=== PATIENT | female | born 1960 | race Caucasian/White ===

== ENCOUNTER 2020-07-22 06:10 | Inpatient (IN) | payer MEDICARE, SELFPAY ==
[2020-07-22] VITALS (29 sets, daily range): BP systolic 93–131; BP diastolic 50–73; PULSE 100–115; RESP 10–27; TEMP 36.5–37.2; O2SAT 93–100
--- NOTE | 2020-07-22 06:46 | CT_ITS ---
WS: [id number] CT ABDOMEN AND PELVIS WITH CONTRAST HISTORY: Diffuse abdominal pain. TECHNIQUE: Imaging performed of the abdomen and pelvis with IV contrast. Single phase imaging of the abdomen. Coronal and sagittal reformats are submitted. All CT scans at [facility] use at least one of these dose optimization techniques: automated exposure control; mA and/or kV adjustment per patient size (includes targeted exams where dose is matched to clinical indication); or iterativ e reconstruction. IV CONTRAST: Omnipaque 300; 95 mL IV. Oral contrast: No DLP: 323.44 mGy.cm COMPARISON: 05/21/2017 Lower thorax: Coarsened interstitial markings and increased reticulation at the lung bases. Probably on the basis of chronic lung disease. Mild cardiac enlargement. No hiatal hernia. Liver/biliary system: Normal size liver. Mild diffuse hepatic steatosis. There is free air adjacent t o the liver and free air near the aj hepatis. Gallbladder: Prior cholecystectomy. There is a small amount of air in the gallbladder fossa. Pancreas: Normal common bile duct at pancreatic head. Pancreas is atrophied. Spleen: Normal. Adrenal glands: Normal. Right kidney: Normal. Left kidney: A few cortical hypodensities which are too small to characterize. No obstruction. Aorta: Moderate atherosclerosis of aorta. No aneurysm. Moderate to large amount of free air throughout the abdomen. Largest amount over the liver and in the midline. Lymphadenopathy: None. Free fluid: Small amount of free fluid in the pelvis. GI tract: Mild fluid distention of the stomach. Mucosal thickening and inflammation is significant in volving the antrum and duodenum. There is free air adjacent to the duodenum. No obstruction. Prior ap pendectomy. Abdominal wall: Unremarkable abdominal wall. No hernia. Pelvis: Fluid in the pelvis. Urinary bladder is nondistended. Bones: Extensive prior lumbar fusion surgery from L3 through S2. CT/CT abdomen pelvis w con* [id number] IMPRESSION: 1. Moderate to large amount of intraperitoneal free air. 2. Marked mucosal thickening and edema with fluid and adjacent free air near t he antrum and duodenal C-loop. Free air source may be a perforated ulcer. 3. Small amount of free fluid in the pelvis. 4. Prior cholecystectomy. 5. Hepatic steatosis. Notified Dale Marinelli DO at 07/22/2020 8:11 AM.
--- NOTE | 2020-07-22 06:47 | ECG_ITS ---
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 Measurements Intervals [place] Rate: 99 P: 65 SC: 100 QRS: 61 QRSD: 85 T: 64 QT: 317 QTc: 408 Interpretive Statements SINUS RHYTHM WITH SHORT SC INTERVAL NONSPECIFIC ST & T-WAVE ABNORMALITY No previous ECG available for comparison Electronically Signed On 07-22-2020 9:41:40 SUPERVISOR TUBING by Darien Hunter M.D. [email or web address] medina [email or web address]/[id number] f
--- NOTE | 2020-07-22 06:47 | XR_ITS ---
WS: [id number] XR chest 1V portable [id number] REASON FOR EXAM: dyspnea/cough FINDINGS: Aorta and heart are within normal limits. Calcified granulomatous changes in both hemithoraces. There are reticular interstitial changes in both lung bases with some small linear densities. CT of t he abdomen and pelvis 07/22/2020, demonstrate no acute appearing infiltrate in the lung bases. There is a mild scoliosis convex right at the thoracolumbar junction. XR/XR chest 1V portable [id number] IMPRESSION: Apparent chronic lung findings without definite acute abnormality noted.
--- NOTE | 2020-07-22 06:49 | ED_ITS ---
HPI - Abdominal Pain General: Chief Complaint: Abdominal Pain Stated Complaint: abd pain Time Seen by Provider: 07/22/20 06:14 History of Present Illness: HPI narrative: 60-year-old female comes in complaining of abdominal pain for the last 5 days getting progressively worse. She had a lot of nausea. She has had a lot of dry heaving but has not actually thrown anything up now has increasing abdominal pain it is even painful for her to take a deep breath. Her bowel movements have been irregular she cannot tell me when her last bowel movement was. She denies any hematochezia melena hematemesis or coffee-ground emesis no dysuria urgency or frequency. She has previously had a lopez, cholecystectomy and an appendectomy. MD elicited complaint: abdominal pain Onset (ago): day(s) (5) Pain Consistency: constant Location: Epigastric Severity: severe Quality: cramping and aching Migration to: LLQ Exacerbating factors: eating, vomiting and movement Relieving factors: medication (Pain medication given by EMS in the field) and rest Associated Symptoms: Reports anorexia, bloating, change in bowel habits, GI cramping, diarrhea, dyspepsia, heartburn, nausea, poor appetite and vomiting; Denies coffee ground emesis, dysuria, excessive flatus, fever(s), hematochezia, hematuria, hematemesis, fecal incontinence, loose stools, melena and syncope Review of Systems Const: Denies: fever(s) ENMT: Denies: throat pain, ear or mastoid pain, nasal discharge or nasal congestion Card: Denies: syncope Resp: Denies: dyspnea, productive cough or non-productive cough GI: Reports: nausea, vomiting, heartburn, diarrhea, bloating, GI cramping and change in bowel habits; Denies: hematemesis, coffee ground emesis, excessive flatus, fecal incontinence, hematochezia or melena : Denies: dysuria or hematuria Skin/Breast: Denies: rash or pruritus PFSH ED PFSH: Medical History (Updated 07/22/20 @ 09:20 by Ramakrishna Solo MD) Chronic back pain COPD (chronic obstructive pulmonary disease) GERD (gastroesophageal reflux disease) Peptic ulcer disease Tobacco dependency Surgical History (Updated 07/22/20 @ 09:20 by Ramakrishna Solo MD) History of back surgery History of surgery on extremity History of tonsillectomy Hx of appendectomy Hx of cholecystectomy Status post Lopez fundoplication Family History (Updated 07/22/20 @ 09:20 by Ramakrishna Solo MD) Other Cancer Social History (Updated 07/22/20 @ 09:21 by Ramakrishna Solo MD) Smoking and tobacco status: current every day smoker Alcohol intake: current Alcohol intake frequency: holidays/special occasions only Substance/Drug Use: never Physical Exam Const: COMMON NORMALS: no acute distress GENERAL APPEARANCE: cooperative and comfortable ORIENTATION/CONSCIOUSNESS: Yes awake, Yes oriented to person, Yes oriented to place and Yes oriented to time HENMT: COMMON NORMALS: normocephalic, atraumatic and hearing grossly normal bilaterally HEAD & SCALP: normocephalic and atraumatic Eye: COMMON NORMALS: Equal, round and reactive pupils present, EOMs intact bilaterally, conjunctivae normal and no scleral icterus CONJUNCTIVA: Yes conjunctivae normal PUPIL: Yes Equal, round and reactive pupils present Neck/C-Spine: COMMON NORMALS: full ROM, no lymphadenopathy, supple and no JVD Lymph: LYMPHATIC: no lymphadenopathy noted and no lymphedema noted Resp: COMMON NORMALS: normal respiratory effort, No retractions, No use of accessory muscles and clear to auscultation bilaterally AUSCULTATION: clear to auscultation bilaterally Cardio: COMMON NORMALS: no JVD, regular rate, regular rhythm and No murmurs present (Cardio) RATE: regular rate RHYTHM: regular rhythm GI: COMMON NORMALS: No hepatosplenomegaly present AUSCULTATION: Yes normoactive bowel sounds PALPATION: Yes Tenderness to palpation present (GI) (Epigastric), Yes Guarding due to palpation present (GI) and Yes No hepatosplenomegaly present Extremity: COMMON NORMALS: normal to inspection, capillary refill normal, no clubbing, cyanosis or edema, no calf tenderness and no pedal edema Neuro: SENSORIUM/ORIENTATION: Yes oriented to person, Yes oriented to place and Yes oriented to time Skin: COMMON NORMALS: no rashes or lesions noted GENERAL SKIN EXAM: no rashes or lesions noted Course Vital Signs: Vital signs: Vital Signs Temperature 97.9 F 07/22/20 06:12 Pulse Rate 102 H 07/22/20 08:37 Respiratory Rate 17 07/22/20 08:37 Blood Pressure 114/67 07/22/20 08:37 Pulse Oximetry 96 07/22/20 08:37 MDM - Abdominal Pain MDM Narrative: Medical decision making narrative: Patient has perforated duodenal ulcer hypokalemia. She has been given Zosyn Protonix and her potassium is being replaced. Of contacted Dr. Donaldson and Dr. Solo they will admit orders are written Lab Data: Labs: Lab Results 07/22/20 07/22/20 07/22/20 Range/Units 06:20 06:20 06:20 WBC 14.6 H (4.0-10.0) 10^3/ uL RBC 3.61 L (4.1-5.3) 10^6/u L Hgb 11.5 (11.5-15.3) g/dL Hct 34.8 L (37.0-47.0) % MCV 96.4 (81-99) fL MCH 31.9 (28.0-34.0) pg MCHC 33.0 (30.0-36.0) g/dL RDW 17.0 H (12.1-15.1) % Plt Count 353 (130-400) 10^3/c mm MPV 11.1 H (7.4-10.4) fL Neut % (Auto) 81.7 % Lymph % (Auto) 12.4 % Daggett % (Auto) 5.1 % Eos % (Auto) 0.2 % Baso % (Auto) 0.3 % Neut # (Auto) 11.93 H (1.8-7.7) 10^3/u L Lymph # (Auto) 1.8 (0.8-4.8) 10^3/u L Daggett # (Auto) 0.8 (0.2-0.9) 10^3/u L Eos # (Auto) 0.0 (0.0-0.8) 10^3/u L Baso # (Auto) 0.1 (0.0-0.1) 10^3/u L Nucleated RBC % (a uto) 0 % Nucleated RBCs # 0.0 /100WBC D-Dimer (0-0.59) ug/mIFE U Sodium 137 (136-145) mmol/L Potassium 2.7 L* (3.5-5.1) mmol/L Chloride 94 L (98-107) mmol/L Carbon Dioxide 30 H (22-29) mmol/L Anion Gap 15.7 (5-19) BUN 7 L (8-23) mg/dL Creatinine 0.6 (0.5-0.9) mg/dL GFR Calculation 101.6 (90-130) mL/min Glucose 138 H (65-115) mg/dL Calculated Osmolal ity 284 L (285-295) mOsm/k g Lactic Acid 1.9 (0.5-2.2) mmol/L Calcium 8.3 L (8.5-10.5) mg/dL Total Bilirubin 0.3 (0.15-1.2) mg/dL AST 43 H (0-32) U/L ALT 29 (0-33) U/L Alkaline Phosphata se 123 H (35-105) IU/L Total Protein 6.0 L (6.6-8.7) g/dL Albumin 3.3 L (3.5-5.2) g/dL Globulin 2.7 (1.3-4.6) g/dL Lipase 12 L (13-60) U/L Urine Color (Yellow) Urine Appearance (CLEAR) Urine pH (5-7) Ur Specific Gravit y (1.005-1.030) Urine Protein (Negative) Urine Glucose (UA) (Normal) Urine Ketones (Negative) Urine Blood (Negative) Urine Nitrate (Negative) Urine Bilirubin (Negative) Prot Sulfosalicyli c Acd (Negative) Urine Urobilinogen (Negative) mg/dL Ur Leukocyte Essie ase (Negative) SARS-CoV-2 Ag (Rap id) (Negative) 07/22/20 07/22/20 07/22/20 Range/Units 06:20 07:13 07:46 WBC (4.0-10.0) 10^3/ uL RBC (4.1-5.3) 10^6/u L Hgb (11.5-15.3) g/dL Hct (37.0-47.0) % MCV (81-99) fL MCH (28.0-34.0) pg MCHC (30.0-36.0) g/dL RDW (12.1-15.1) % Plt Count (130-400) 10^3/c mm MPV (7.4-10.4) fL Neut % (Auto) % Lymph % (Auto) % Daggett % (Auto) % Eos % (Auto) % Baso % (Auto) % Neut # (Auto) (1.8-7.7) 10^3/u L Lymph # (Auto) (0.8-4.8) 10^3/u L Daggett # (Auto) (0.2-0.9) 10^3/u L Eos # (Auto) (0.0-0.8) 10^3/u L Baso # (Auto) (0.0-0.1) 10^3/u L Nucleated RBC % (a uto) % Nucleated RBCs # /100WBC D-Dimer 1.06 H (0-0.59) ug/mIFE U Sodium (136-145) mmol/L Potassium (3.5-5.1) mmol/L Chloride (98-107) mmol/L Carbon Dioxide (22-29) mmol/L Anion Gap (5-19) BUN (8-23) mg/dL Creatinine (0.5-0.9) mg/dL GFR Calculation (90-130) mL/min Glucose (65-115) mg/dL Calculated Osmolal ity (285-295) mOsm/k g Lactic Acid (0.5-2.2) mmol/L Calcium (8.5-10.5) mg/dL Total Bilirubin (0.15-1.2) mg/dL AST (0-32) U/L ALT (0-33) U/L Alkaline Phosphata se (35-105) IU/L Total Protein (6.6-8.7) g/dL Albumin (3.5-5.2) g/dL Globulin (1.3-4.6) g/dL Lipase (13-60) U/L Urine Color Yellow (Yellow) Urine Appearance Clear (CLEAR) Urine pH 8.0 H (5-7) Ur Specific Gravit y 1.010 (1.005-1.030) Urine Protein Neg (Negative) Urine Glucose (UA) Norm (Normal) Urine Ketones 2+ H (Negative) Urine Blood Neg (Negative) Urine Nitrate Negative (Negative) Urine Bilirubin 1+ H (Negative) Prot Sulfosalicyli c Acd Negative (Negative) Urine Urobilinogen Norm (Negative) mg/dL Ur Leukocyte Essie ase Negative (Negative) SARS-CoV-2 Ag (Rap id) Negative (Negative) Discharge Plan Discharge Patient Disposition: Admitted As Inpatient Clinical Impression: Perforated duodenal ulcer, COPD (chronic obstructive pulmonary disease), Hypokalemia Condition: Stable Coding Level of Care Code ED Claims Consultant for Chg Fwd Exam Comprehensive
[2020-07-22 06:53] LABS: Basophils # 0.1 10^3/uL (0.0-0.1); Basophils % 0.3 %; Eosinophils % 0.2 %; Hematocrit 34.8 % (37.0-47.0); Hemoglobin 11.5 g/dL (11.5-15.3); Lymphocytes # 1.8 10^3/uL (0.8-4.8); Lymphocytes % 12.4 %; Mean Corpuscular Hemoglobin 31.9 pg (28.0-34.0); Mean Corpuscular Volume 96.4 fL (81-99); Mean Platelet Volume 11.1 fL (7.4-10.4); Monocytes # 0.8 10^3/uL (0.2-0.9); Monocytes % 5.1 %; Neutrophils # 11.93 10^3/uL (1.8-7.7); Neutrophils % 81.7 %; Nucleated Red Blood Cells % 0 %; Platelet Count 353 10^3/cmm (130-400); Red Blood Count 3.61 10^6/uL (4.1-5.3); White Blood Count 14.6 10^3/uL (4.0-10.0)
[2020-07-22 07:09] LABS: Lactic Sepsis W/Reflex 1.9 mmol/L (0.5-2.2)
[2020-07-22] MEDS: morphine 4 mg/mL SDV 1 mL IVP ×3 (07:09→19:54)
[2020-07-22] MEDS: ondansetron 2 mg/ML SDV 2 mL 4 MG IVP (07:09)
[2020-07-22 07:10] LABS: Alanine Aminotransferase 29 U/L (0-33); Albumin Level 3.3 g/dL (3.5-5.2); Alkaline Phosphatase 123 IU/L (35-105); Aspartate Amino Transferase 43 U/L (0-32); Blood Urea Nitrogen 7 mg/dL (8-23); Calcium 8.3 mg/dL (8.5-10.5); Carbon Dioxide 30 mmol/L (22-29); Chloride 94 mmol/L (98-107); Globulin 2.7 g/dL (1.3-4.6); Glomerular Filtration Rate 101.6 mL/min (90-130); Glucose 138 mg/dL (65-115); Lipase 12 U/L (13-60); Osmolality Calculated 284 mOsm/kg (285-295); Sodium 137 mmol/L (136-145); Total Bilirubin 0.3 mg/dL (0.15-1.2)
[2020-07-22 07:25] LABS: Anion Gap 15.7 (5-19); Potassium 2.7 mmol/L (3.5-5.1)
[2020-07-22 07:27] LABS: D Dimer 1.06 ug/mIFEU (0-0.59)
[2020-07-22 07:53] LABS: SARS Covid-2 Antigen Negative (Negative)
[2020-07-22] MEDS: iohexol 300 mg/mL 100 mL Btl IV (07:56)
[2020-07-22 07:57] LABS: Add Urine Microscopic? NO
[2020-07-22 08:05] LABS: Bilirubin Urine 1+ (Negative); Blood Urine Neg (Negative); Glucose Urine UA Norm (Normal); Ketones Urine 2+ (Negative); Leukocyte Esterase Urine Negative (Negative); Nitrate Urine Negative (Negative); Protein Urine Neg (Negative); Sulfosalicylic Acid Urine Negative (Negative); Urine Appearance Clear (CLEAR); Urine Color Yellow (Yellow); Urobilinogen Urine Norm (Negative)
[2020-07-22] MEDS: piperacillin-tazobactam 3.375 GM in sodium chloride 0.9% (plus) 50 ML IV ×3 (08:30→22:52)
[2020-07-22] MEDS: lidocaine 1% 5 ML in potassium chloride premix 100 ML 25 ML IV (08:31)
[2020-07-22] MEDS: pantoprazole 40 mg SDV IVP ×2 (08:52→22:52)
[2020-07-22] MEDS: sodium chloride 0.9% 1,000 ML 999 ML IV (08:52)
[2020-07-22] MEDS: HYDROmorphone 1 mg/mL INJ 1 mL 0.5 MG IVP (08:52)
--- NOTE | 2020-07-22 09:00 | P.CONIM_ITS ---
Providers/Reason For Consult Consulting Physican/Specialty*: Camilo Garza MD Reason for Consult*: Perforated duodenal ulcer Requesting Physcian: Dr. Marinelli Primary Care Provider: PERLA Putnam History of Present Illness History of Present Illness Chief Complaint: I am hurting History of present illness:sErick Aguiar is a 60 year old female presents to the emergency department with worsening abdominal pain mostly in the upper compartment, patient has been complaining of abdominal pain for the past 4 to 5 days and she is not able to vomit she had history of Arnoldo fundoplication back in 2003 that was done laparoscopic and patient reports to me that she had a previous ulcer that was repaired at the same session. Patient continues to smoke and she had history of COPD. She was tested for Covid rapid test and that was negative in the ER. On further evaluation blood work showed leukocytosis and hypokalemia and further work-up included a CT scan of the abdomen and pelvis showed: Liver/biliary system: Normal size liver. Mild diffuse hepatic steatosis. There i s free air adjacent to the liver and free air near the aj hepatis. Gallbladder: Prior cholecystectomy. There is a small amount of air in the gallbladder fossa. Pancreas: Normal common bile duct at pancreatic head. Pancreas is atrophied. Spleen: Normal. Adrenal glands: Normal. Right kidney: Normal. Left kidney: A few cortical hypodensities which are too small to characterize. No obstruction. Aorta: Moderate atherosclerosis of aorta. No aneurysm. Moderate to large amount of free air throughout the abdomen. Largest amount over the liver and in the midline. Lymphadenopathy: None. Free fluid: Small amount of free fluid in the pelvis. GI tract: Mild fluid distention of the stomach. Mucosal thickening and inflammation is significant involving the antrum and duodenum. There is free air adjacent to the duodenum. No obstruction. Prior appendectomy. Abdominal wall: Unremarkable abdominal wall. No hernia. Pelvis: Fluid in the pelvis. Urinary bladder is nondistended. Bones: Extensive prior lumbar fusion surgery from L3 through S2. CT/CT abdomen pelvis w con* [id number] IMPRESSION: 1. Moderate to large amount of intraperitoneal free air. 2. Marked mucosal thickening and edema with fluid and adjacent free air near the antrum and duodenal C-loop. Free air source may be a perforated ulcer. 3. Small amount of free fluid in the pelvis. 4. Prior cholecystectomy. 5. Hepatic steatosis. General surgery was consulted for for evaluation and management Patient denies Hematemsis Review of Systems General: Reports: 10 or more systems reviewed and unremarkable except in HPI and below Meds/Allergies Home Medications and Allergies Home Medications Medication Instructions Recorded Confirmed Last Taken Type acetaminophen [Tylenol] 325 mg PO QID PRN 07/22/20 07/22/20 Unknown History aspirin-sod bicarb-citric acid 324 mg PO DAILY 07/22/20 07/22/20 07/21/20 History [Soo-Gepp] carisoprodol 350 mg PO QID PRN 07/22/20 07/22/20 07/21/20 History hydrocodone-acetaminophen 1 tab PO Q4H PRN 07/22/20 07/22/20 07/18/20 History omeprazole [Prilosec] 40 mg PO DAILY 07/22/20 07/22/20 Unknown History Allergies Allergy/AdvReac Type Severity Reaction Status Date / Time No Known Allergies Allergy Verified 07/22/20 09:14 Current Medications Current Medications Generic Name Dose Route Start Last Admin Trade Name Freq PRN Reason Stop Dose Admin Lidocaine HCl 5 ml/ Potassium 105 mls @ 25 mls/hr 07/22/20 07:31 07/22/20 08:31 Chloride IV 07/22/20 11:42 25 mls/hr ONCE ONE Administration Sodium Chloride 1,000 mls @ 999 mls/hr 07/22/20 08:41 07/22/20 08:52 Sodium Chloride 0.9% IV 07/22/20 09:41 999 mls/hr .Q1H1M ONE Administration PFSH Acute PFSH: Medical History (Updated 07/22/20 @ 09:22 by Ramakrishna Solo MD) Chronic back pain COPD (chronic obstructive pulmonary disease) GERD (gastroesophageal reflux disease) Peptic ulcer disease Tobacco dependency Surgical History (Updated 07/22/20 @ 09:20 by Ramakrishna Solo MD) History of back surgery History of surgery on extremity History of tonsillectomy Hx of appendectomy Hx of cholecystectomy Status post Arnoldo fundoplication Family History (Updated 07/22/20 @ 09:20 by Ramakrishna Solo MD) Other Cancer Social History (Updated 07/22/20 @ 09:21 by Ramakrishna Solo MD) Smoking and tobacco status: current every day smoker Alcohol intake: current Alcohol intake frequency: holidays/special occasions only Substance/Drug Use: never Vitals/I&O/Wt Last Vital Signs Temp 97.9 F 07/22/20 06:12 Pulse 102 H 07/22/20 08:37 Resp 17 07/22/20 08:37 BP 114/67 07/22/20 08:37 Pulse Ox 96 07/22/20 08:37 07/21/20 07/22/20 07/22/20 22:59 06:59 14:59 Intake Total 50 / 50 Balance 50 / 50 Physical Exam Narrative: EXAM NARRATIVE: Patient is conscious alert oriented X3 Head and neck examination PERRLA no masses no cervical lymphadenopathy no jaundice Cardiac examination audible S1-S2 no murmurs no gallops no arrhythmias Chest is clear bilateral,abscence of Rhonchi or wheezes,no surgical emphysema Abdomen generalized peritonitis particularly in the upper part of the abdomen with guarding and rigidity. Extremities no cyanosis no clubbing no edema Data Micro: Micro: Microbiology 07/22/20 06:20 Blood Culture - Pr eliminary Blood SPECIMEN COLLEC DIANELYS A&P Assessment and plan (1) Perforated duodenal ulcer: After history taking physical examination and reviewing the chart and images with my patient the petition of the CT scan likely the patient has a pe rforated duodenal ulcer and will require diagnostic laparoscopy possible laparotomy and possible EGD. Indications, risks, benefits and alternatives were discussed with the patient and she did agree to proceed with surgery Informed consent per chart Status: Acute Consult Attestations Medical Necessity Statement: Inpatient hospitalization for medical and surgical care. Time Spent in Patient Care: (>than 50% of time spent in counselling and/or direct pt care on unit) . Coding Level of Care Code Acute Welfare Interviewer for g Fwd Diagnoses Perforated duodenal ulcer K26.5
--- NOTE | 2020-07-22 09:03 | PC.NURSE ---
pt hypoxic after analgesic administration (room air saturation 87%). Applied 2L per NC
--- NOTE | 2020-07-22 09:08 | PM.HP ---
Providers/Chief Complaint Primary Care Provider: PERLA Putnam Chief Complaint: abd pain History of Present Illness Judy Aguiar is a 60 year old female that presents to the emergency department complaining of nausea, dry heaves and abdominal pain. This is apparently been going on 4 days. No blood in stools or black or tarry stools. Last bowel movement yesterday. Last p.o. intake 11 PM last night. Abdominal pain has significantly worsened over the preceding days. Has prior history of ulcer, treated in 2003 with surgery as well as Niesen. Denies any anesthesia complications, bleeding disorders. No fever. No history of Covid, chronic cough, exposure to Covid. Has been using Soo-[place] the last 4 to 5 days secondary to pain. Denies any other anti-inflammatory use. Is not on any anticoagulants. Review of Systems General: Reports: 10 or more systems reviewed and unremarkable except in HPI and below Const: Denies: fever(s) or chills Eyes: Denies: change in vision ENMT: Denies: throat pain Card: Denies: chest pain Resp: Denies: dyspnea GI: Reports: abdominal pain and nausea : Denies: flank pain Musc: Denies: neck pain Skin/Breast: Denies: rash Neuro: Denies: headache(s) Psych: Denies: anxiety Endo: Denies: polyuria Nehemias/Lymph: Denies: easy bruising All/Imm: Denies: urticaria Medications/Allergies Home Medications Medication Instructions Recorded Confirmed Last Taken Type acetaminophen [Tylenol] 325 mg PO QID PRN 07/22/20 07/22/20 Unknown History aspirin-sod bicarb-citric acid 324 mg PO DAILY 07/22/20 07/22/20 07/21/20 History [Soo-[place]] carisoprodol 350 mg PO QID PRN 07/22/20 07/22/20 07/21/20 History hydrocodone-acetaminophen 1 tab PO Q4H PRN 07/22/20 07/22/20 07/18/20 History omeprazole [Prilosec] 40 mg PO DAILY 07/22/20 07/22/20 Unknown History Allergies Allergy/AdvReac Type Severity Reaction Status Date / Time No Known Allergies Allergy Verified 07/22/20 09:14 PFSH Acute PFSH: Medical History (Updated 07/22/20 @ 09:22 by Ramakrishna Solo MD) Chronic back pain COPD (chronic obstructive pulmonary disease) GERD (gastroesophageal reflux disease) Peptic ulcer disease Tobacco dependency Surgical History (Updated 07/22/20 @ 09:20 by Ramakrishna Solo MD) History of back surgery History of surgery on extremity History of tonsillectomy Hx of appendectomy Hx of cholecystectomy Status post Arnoldo fundoplication Family History (Updated 07/22/20 @ 09:20 by Ramakrishna Solo MD) Other Cancer Social History (Updated 07/22/20 @ 09:21 by Ramakrishna Solo MD) Smoking and tobacco status: current every day smoker Alcohol intake: current Alcohol intake frequency: holidays/special occasions only Substance/Drug Use: never Supplemental PFSH Information: Family history significant for pancreatic cancer. Vitals/I&O/Wt Last Vital Signs Temp 97.9 F 07/22/20 06:12 Pulse 102 H 07/22/20 08:37 Resp 17 07/22/20 08:37 BP 114/67 07/22/20 08:37 Pulse Ox 96 07/22/20 08:37 07/21/20 07/22/20 07/22/20 22:59 06:59 14:59 Intake Total 50 / 50 Balance 50 / 50 Physical Exam Narrative: EXAM NARRATIVE: General exam is a white female in apparent abdominal pain HEENT: Pupils equally round. Oropharynx clear. Neck is supple no lymphadenopathy or thyromegaly Cardiovascular tachycardic, no murmur Lungs clear no wheezing or crackles. Diminished breath sounds are noted bilaterally Abdomen is tender to any palpation. Bowel sounds are hypoactive. No obvious organomegaly was deferred Extremities no cyanosis clubbing or edema, cap refill brisk Skin no rash Neuro no focal deficits Data : 07/22/20 06:20 07/22/20 06:20 Micro: Microbiology 07/22/20 06:20 Blood Culture - Preliminary Blood SPECIMEN COLLECTED Other data: EKG demonstrates sinus tachycardia, normal axis, nonspecific ST-T wave abnormalities Chest x-ray reviewed by me demonstrates some COPD changes but no infiltrate CT abdomen and pelvis demonstrates free intraperitoneal air, thickening of duodenum and likely perforated ulcer, small amount of free fluid, prior cholecystectomy, fatty liver Dimer 1.06 AST 43 ALT 29 alk phos 123 albumin 3.3 lipase 12 Rapid Covid negative Urinalysis negative for leukocyte esterase A&P Assessment and plan (1) Perforated duodenal ulcer: Acute peritonitis present on exam ICU admission Currently does not appear to be bleeding significantly but will repeat hemoglobin in 4 hours Zosyn IV Blood cultures Protonix 40 mg IV every 12 hours Surgery consultation Pain control Status: Acute (2) Free intraperitoneal air: Secondary to above Status: Acute (3) COPD (chronic obstructive pulmonary disease): Albuterol and Atrovent per inhalation as needed Status: Acute (4) Chronic back pain: Pain control for ulcer should be sufficient Status: Inactive Additional A&P Information Full code SCDs for DVT prophylaxis. Anticoagulation contraindicated secondary to perforated ulcer, duodenum Attestations Medical Necessity Statement*: Will need greater than 2 midnight stay for evaluation and treatment of perforated duodenal ulcer Critical Care Time: 46 minutes spent in critical care time with the patient, with acute peritonitis, perforated duodenal ulcer, tachycardia, with high risk of and/or decompensation. Coding Level of Care Code Acute Commercial Designer for [facility] Fwd Diagnoses Perforated duodenal ulcer K26.5 Free intraperitoneal air K66.8 COPD (chronic obstructive pulmonary disease) J44.9 Chronic back pain M54.9; G89.29
[2020-07-22 09:27] LABS: Magnesium 1.9 mg/dL (1.7-2.3)
--- NOTE | 2020-07-22 10:02 | P.ANESASSM_ITS ---
Pre-Anesthetic Assessment Pre-Anesthetic Assessment: Height/Weight: Temp Pulse Resp BP Pulse Ox 97.9 F 102 H 17 114/67 96 07/22/20 06:12 07/22/20 08:37 07/22/20 08:37 07/22/20 08:37 07/22/20 08:37 Preop Diagnosis: Perforated duodenal ulcer Proposed Procedure: Operation Date: 07/22/20 10:30 Proposed Procedures p Laparoscopy(Not Applicable) - Camilo Garza MD Familial anesthetic complications: None Was Beta Zora taken within 24 hours: N/A Last intake: NPO > 8 hrs, but currently nauseated Social: Social History: Tobacco Exam: Pre-Anes Outpt Exam: alert, oriented x 3, clear to auscultation bilaterally and regular rate & rhythm Airway: Cervical ROM: WNL MP: 3 Dentition: False Pulmonary: Pulmonary: COPD GI: GI: GERD Metabolic: Comments: hypokalemia - currently being replaced Anesthetic Plan: ASA status: 3E Anesthesia: General Other: RSI for nausea, succinylcholine will assist with raising potassium as well Risk of > 500 ml blood loss (7ml/kg in children): No Meds/Allergies Current Medications: Current Medications Generic Name Dose Route Start Last Admin Trade Name Freq PRN Reason Stop Dose Admin Lidocaine HCl 5 ml / Potassium 105 mls @ 25 mls/ hr 07/22/20 07:31 07/22/20 08:31 Chloride IV 07/22/20 11:42 25 mls/hr ONCE ONE Administration PFSH Anesthesia PFSH: Medical History (Updated 07/22/20 @ 09:22 by Ramakrishna Solo MD) Chronic back pain COPD (chronic obstructive pulmonary disease) GERD (gastroesophageal reflux disease) Peptic ulcer disease Tobacco dependency Surgical History (Updated 07/22/20 @ 09:20 by Ramakrishna Solo MD) History of back surgery History of surgery on extremity History of tonsillectomy Hx of appendectomy Hx of cholecystectomy Status post Arnoldo fundoplication Family History (Updated 07/22/20 @ 09:20 by Ramakrishna Solo MD) Other Cancer Social History (Updated 07/22/20 @ 09:21 by Ramakrishna Solo MD) Smoking and tobacco status: current every day smoker Alcohol intake: current Alcohol intake frequency: holidays/special occasions only Substance/Drug Use: never Supplemental PFSH Information: Family history significant for pancreatic cancer. Data Anesthesia CBC & Chem 7: 07/22/20 06:20 07/22/20 06:20 Other Labs: Laboratory Results - last 48 hr 07/22/20 07/22/20 07/22/20 06:20 06:20 06:20 WBC 14.6 H RBC 3.61 L Hgb 11.5 Hct 34.8 L MCV 96.4 MCH 31.9 MCHC 33.0 RDW 17.0 H Plt Count 353 MPV 11.1 H Neut % (Auto) 81.7 Lymph % (Auto) 12.4 Tucker % (Auto) 5.1 Eos % (Auto) 0.2 Baso % (Auto) 0.3 Neut # (Auto) 11.93 H Lymph # (Auto) 1.8 Tucker # (Auto) 0.8 Eos # (Auto) 0.0 Baso # (Auto) 0.1 Nucleated RBC % (auto) 0 Nucleated RBCs # 0.0 D-Dimer Sodium 137 Potassium 2.7 L* Chloride 94 L Carbon Dioxide 30 H Anion Gap 15.7 BUN 7 L Creatinine 0.6 GFR Calculation 101.6 Glucose 138 H Calculated Osmolality 284 L Lactic Acid 1.9 Calcium 8.3 L Magnesium Total Bilirubin 0.3 AST 43 H ALT 29 Alkaline Phosphatase 123 H Total Protein 6.0 L Albumin 3.3 L Globulin 2.7 Lipase 12 L Urine Color Urine Appearance Urine pH Ur Specific [place] Urine Protein Urine Glucose (UA) Urine Ketones Urine Blood Urine Nitrate Urine Bilirubin Prot Sulfosalicylic Acd Urine Urobilinogen Ur Leukocyte Esterase SARS-CoV-2 Ag (Rapid) 07/22/20 07/22/20 07/22/20 06:20 06:20 07:13 WBC RBC Hgb Hct MCV MCH MCHC RDW Plt Count MPV Neut % (Auto) Lymph % (Auto) Tucker % (Auto) Eos % (Auto) Baso % (Auto) Neut # (Auto) Lymph # (Auto) Tucker # (Auto) Eos # (Auto) Baso # (Auto) Nucleated RBC % (auto) Nucleated RBCs # D-Dimer 1.06 H Sodium Potassium Chloride Carbon Dioxide Anion Gap BUN Creatinine GFR Calculation Glucose Calculated Osmolality Lactic Acid Calcium Magnesium 1.9 Total Bilirubin AST ALT Alkaline Phosphatase Total Protein Albumin Globulin Lipase Urine Color Urine Appearance Urine pH Ur Specific [place] Urine Protein Urine Glucose (UA) Urine Ketones Urine Blood Urine Nitrate Urine Bilirubin Prot Sulfosalicylic Acd Urine Urobilinogen Ur Leukocyte Esterase SARS-CoV-2 Ag (Rapid) Negative 07/22/20 07:46 WBC RBC Hgb Hct MCV MCH MCHC RDW Plt Count MPV Neut % (Auto) Lymph % (Auto) Tucker % (Auto) Eos % (Auto) Baso % (Auto) Neut # (Auto) Lymph # (Auto) Tucker # (Auto) Eos # (Auto) Baso # (Auto) Nucleated RBC % (auto) Nucleated RBCs # D-Dimer Sodium Potassium Chloride Carbon Dioxide Anion Gap BUN Creatinine GFR Calculation Glucose Calculated Osmolality Lactic Acid Calcium Magnesium Total Bilirubin AST ALT Alkaline Phosphatase Total Protein Albumin Globulin Lipase Urine Color Yellow Urine Appearance Clear Urine pH 8.0 H Ur Specific [place] 1.010 Urine Protein Neg Urine Glucose (UA) Norm Urine Ketones 2+ H Urine Blood Neg Urine Nitrate Negative Urine Bilirubin 1+ H Prot Sulfosalicylic Acd Negative Urine Urobilinogen Norm Ur Leukocyte Esterase Negative SARS-CoV-2 Ag (Rapid) Micro: Microbiology 07/22/20 06:20 Blood Culture - Preliminary Blood SPECIMEN COLLECTED Cardiac Studies: No Data to Display
[2020-07-22] MEDS: sodium chloride 0.9% 1,000 ML 30 ML IV (10:32)
[2020-07-22 11:19] LABS: Estmated Average Glucose 97
[2020-07-22] MEDS: lidocaine 2% INJ 20 mL (12:11)
[2020-07-22] MEDS: ceFAZolin 1,000 mg SDV 2000 MG (12:31)
--- NOTE | 2020-07-22 12:50 | SUR.OPER ---
Attempted to notify life partner, Atilio of surgical progress and surgical start. No answer. 1245 07/22/20
--- NOTE | 2020-07-22 13:29 | PM.OP ---
Operative Report Date of procedure: July 22, 2020 Pre-op Diagnosis: Perforated duodenal ulcer Post-op diagnosis: same Post-op Findings: Peritonitis involving the upper lining of the peritoneum of the abdomen sealed the perforated duodenal ulcer about half centimeter in diameter. Intraoperative EGD showed gastritis and no other perforation appreciated. Procedure Done: Diagnostic laparoscopy/laparoscopic closure of perforated duodenal ulcer using Alexander patch and intra-abdominal drain placement. Laparoscopic peritoneal lavage Implants: 15 Greenlandic rounded Sampson drain Specimens removed/disposition: none Surgeon: Camilo Garza Wire Coating Operator Metal: Surgical assistance Alessia Circulating nurse Janey Anesthesia: General Estimated blood loss (mL): 25 IV fluids (mL): 2,000 Urine output (mL): 150 Complications: No immediate complication Disposition: ICU Brief History: This is a pleasant 60 years old female patient presented to the emergency department with worsening upper abdominal pain and was found to have perforated duodenal ulcer on the CT scan. The thorough history physical examination and reviewing the chart and images have been presented potation I did skilled nursing facility counselor the patient for laparoscopic closure of perforated the ulcer possible laparotomy and possible EGD intraoperative. An informed consent per chart please see full H&P Procedure: Patient was identified in the [facility] area, patient was then taken to the operating room were the patient was placed in supine position, intubated by anesthesia, patient was started on Zosyn at the ER, yet additional 2 g of Ancef were given with induction.Timeout was done verifying the patient's name/date of /planned procedure and destination after the procedure, all were in agreement. SCDs confirmed to be functioning and beta danica protocol was confirmed Both arms were tucked to the sides.and all pressure points were padded, Bobo catheter was inserted revealing concentrated urine. The patient was appropriately secured to the operating table, and I asked anesthesia to swing the table [id number] in different positions that the patient is appropriately secured to the OR table which it was the case. Prep and drape of the abdomen was done under the usual sterile technique, started by 1.2 cm supraumbilical transverse incision using the previous scar with 11 blade knife, trans of the peritoneal cavity was done without complication the peritoneal cavity was insufflated with CO2 gas up to 15 mmHg, followed by that an angled scope 10 mm was inserted in the abdominal cavity, the abdomen was surveyed there was evidence of succus at the right paracolic gutter yet minimal and more towards perihepatic also there was perisplenic and pelvic fluid yet clearer, there was no evidence of intra-abdominal injury. A 12 mm port was placed in towards the right upper subcostal region. 5 mm trocar port was placed more caudad than and medial to the previous port and towards the right side of the abdomen. An additional 5 mm trocar was placed towards the left side of the allowing my assistance to lift up the liver patient was placed in steep reverse T Diaz and I stood at the patient's right side I Started at that point exploring the upper abdomen for the site of the perforated duodenal ulcer, there was evidence of necrotic tissues and sealed perforated ulcer at the first part of the duodenum anterior portion with fibrinous exudates. There was also a lot of adhesions scarring down the left lobe of the liver onto the proximal part of the stomach likely from prior surgical intervention. I asked anesthesia at this point to insert NG to decompress the stomach and inject 100 cc of air and there were no bubbles at this point yet after taking adhesions down we redid that and there were bubbles pointing at that site and no obvious other perforations appreciated. At this point I decided to perform an intraoperative EGD which is scrubbed out to make sure there is no other ulcers and the stomach was nicely distended and the only site of perforation was the anterior surface of the duodenum at this point the stomach was decompressed and NG maintained to be in good position and I scrubbed back in. started delivering viscera gently, so I can identify the surgical anatomy I was able to identify a perforated duodenal ulcer at the anterior surface of the first part of the duodenum about half centimeter in diameter, with partial seal. I was able to dismantle all adhesions, identified clearly the perforation At this point I was able to apply about 2 interrupted 2-0 silk sutures approximate the edges of the perforated duodenal ulcer, interrupted sutures were placed thru the surrounding healthier tissues, the hole was then closed, strings of the sutures were left apart, and a viable omental tongue/flap, was brought onto the site of the perforation without tension, and with the help of the left behind strings, I was able to titrate down on top of the omental tongue to secure it in place(Alexander patch-like fashion), additional 2-0 silk sutures were applied at the edges of the omentum to secure to the anterior surface of the stomach and duodenum Copious and thorough irrigation with about 4 L of warm saline was achieved after suction of the succus , all gutters were irrigated well as the pelvis,and 15 Greenlandic Sampson round drain towards the site of the perforation repair, was placed via the first 5 mm trocar which is located caudad to the second 12 mm trocar , the drain was brought out from the abdomen and secured to the skin by 2-0 nylon . After adequate hemostasis the liver retractor was taken out under direct visualization, final laparoscopic survey was done showing no injuries to intra-abdominal structures, at this point under direct visualization, both 12 mm ports sites were closed by grainy needle using #1 PDS as well as the one at the right subcostal region for gas deflation.All trocars were taken out under direct vision. The rest of the stab incisions were closed by skin estella after irrigation, followed by dry dressing in the form of Band-Aids Patient overall tolerated the procedure well The count of instruments,needles and sponges was completed at the end of the procedure. Bobo catheter was left in place as well as the nasogastric tube I was present for the whole entire procedure patient remained intubated and was transferred directly to the intensive care unit for continuity of care
--- NOTE | 2020-07-22 14:50 | ANE.PACU2 ---
Inpatient post-anesthesia follow up: Airway intact: No Vital signs: Temperature 99.0 F Pulse Rate [Monito r] 100 Pulse Rate 110 Respiratory Rate 14 Blood Pressure [Ri ght Arm] 111/69 Blood Pressure 111/58 Pulse Oximetry 90 Oxygen Delivery Me thod Nasal Cannula Oxygen Flow Rate 2 Fraction of Inspir ed Oxygen 30 Hydration adequate: Yes Nausea and vomiting: No Pain level: 1 Mental status: Altered Additional Comments: intubated and sedated
[2020-07-22 17:06] LABS: Hematocrit 34.7 % (37.0-47.0); Hemoglobin 10.7 g/dL (11.5-15.3)
[2020-07-22 17:32] LABS: Potassium 3.3 mmol/L (3.5-5.1)
[2020-07-22] MEDS: sodium chloride 0.9% 1,000 ML 125 ML IV ×2 (18:08→22:53)
--- NOTE | 2020-07-22 19:18 | PC.SLP ---
Assessment AO x4, answers questions appropriately follows commands, denied SOB lungs clear, dressings to abdomen clean dry and intact, small amount light red tinged drainage to CONNIE abdominal CONNIE drain, supine 45 degrees call light within reach
--- NOTE | 2020-07-22 20:01 | PC.NURSE ---
Assessment AO x4, speech clear, answers questions appropriately, follows commands, Abdominal dressings clean dry and intact, small amount light red tinged drainage to CONNIE drain, C/O abdominal pain PRN morphine administered per order, supine 45 degrees, call light within reach
[2020-07-23] VITALS (49 sets, daily range): BP systolic 91–130; BP diastolic 53–71; PULSE 101–119; RESP 14–29; TEMP 37–37.7; O2SAT 90–95
[2020-07-23] MEDS: morphine 4 mg/mL SDV 1 mL IVP ×6 (00:04→21:39)
[2020-07-23 04:53] LABS: Basophils % 0.3 %; Eosinophils % 0.1 %; Hematocrit 33.6 % (37.0-47.0); Hemoglobin 10.9 g/dL (11.5-15.3); Lymphocytes # 1.9 10^3/uL (0.8-4.8); Mean Corpuscular HGB Conc 32.4 g/dL (30.0-36.0); Mean Corpuscular Hemoglobin 32.2 pg (28.0-34.0); Mean Corpuscular Volume 99.4 fL (81-99); Mean Platelet Volume 11.2 fL (7.4-10.4); Monocytes # 0.8 10^3/uL (0.2-0.9); Monocytes % 5.1 %; Neutrophils # 13.14 10^3/uL (1.8-7.7); Neutrophils % 82.1 %; Nucleated Red Blood Cells % 0 %; Platelet Count 333 10^3/cmm (130-400); Red Blood Count 3.38 10^6/uL (4.1-5.3); Red Cell Distribution Width 17.5 % (12.1-15.1)
[2020-07-23 05:34] LABS: Alanine Aminotransferase 40 U/L (0-33); Albumin Level 2.7 g/dL (3.5-5.2); Alkaline Phosphatase 125 IU/L (35-105); Anion Gap 13.1 (5-19); Aspartate Amino Transferase 54 U/L (0-32); Blood Urea Nitrogen 16 mg/dL (8-23); Calcium 7.6 mg/dL (8.5-10.5); Carbon Dioxide 24 mmol/L (22-29); Chloride 107 mmol/L (98-107); Globulin 2.9 g/dL (1.3-4.6); Glomerular Filtration Rate 72.9 mL/min (90-130); Glucose 119 mg/dL (65-115); Osmolality Calculated 294 mOsm/kg (285-295); Potassium 3.1 mmol/L (3.5-5.1); Sodium 141 mmol/L (136-145); Total Bilirubin 0.5 mg/dL (0.15-1.2); Total Protein 5.6 g/dL (6.6-8.7)
[2020-07-23] MEDS: piperacillin-tazobactam 3.375 GM in sodium chloride 0.9% (plus) 50 ML IV ×3 (05:38→23:13)
--- NOTE | 2020-07-23 06:51 | P.PN_ITS ---
Subjective Subjective: Interval history: Patient overall doing better,urine output 150 mL total Light green per NG content Slight trending up leukocytosis Vitals/I&O/Wt Last Vital Signs Temp 99.0 F 07/23/20 05:53 Pulse 110 H 07/23/20 05:30 Resp 14 07/23/20 05:30 BP 111/58 07/23/20 05:30 Pulse Ox 90 07/23/20 05:30 07/22/20 07/22/20 07/23/20 14:59 22:59 06:59 Intake Total 150 / 150 643.75 / 793.75 50 / 843.75 Output Total 150 / 150 270 / 420 100 / 520 Balance 0 / 0 373.75 / 373.75 -50 / 323.75 Weight last 48 hrs Weight 152 lb Weight 130 lb Physical Exam Narrative: EXAM NARRATIVE: Patient is conscious alert oriented X3 Head and neck examination PERRLA no masses no cervical lymphadenopathy no jaundice NG in place with light green gastric content Cardiac examination audible S1-S2 no murmurs no gallops no arrhythmias Chest is clear bilateral,abscence of Rhonchi or wheezes,no surgical emphysema Abdomen nontender except slightly at the incision sites. Dry dressing in place nondistended soft no organomegaly guarding or rigidity/no signs of peritonitis. Right-sided drain with serosanguineous output Bobo catheter in place with concentrated urine Extremities no cyanosis no clubbing no edema Urinary Catheter Management^: Bobo: Cath Placed During This Visit: no Reason for Continuing Indwelling Catheter: Acute Urinary Retention or Obstruction Data : 07/23/20 04:22 07/23/20 04:22 Micro: Microbiology 07/22/20 06:20 Blood Culture - Preliminary Blood NEGATIVE TO DATE 07/22/20 16:42 Blood Culture - Preliminary Blood SPECIMEN COLLECTED A&P Assessment and plan (1) Perforated duodenal ulcer: From surgical standpoint of view we will continue NG to low intermittent wall suction, will plan to obtain an upper GI study at some point and then will start feeding the patient. We will continue NG to low intermittent wall suction Drain care Encourage ambulation Continue resuscitation per hospitalist service Strict I's and O's Encourage incentive spirometer every hour Replacement of electrolytes per hospitalist service Continue antimicrobial therapy for now Can resume pharmacologic DVT prophylaxis Assurance and education All questions have been answered and all concerns have been addressed to patient's satisfaction. Status: Resolved Attestations 2 Medical Necessity Statement*: Continue inpatient hospitalization for medical and surgical care Time Spent in Patient Care: (>than 50% of time spent in counselling and/or direct pt care on unit) . Coding Level of Care Code Acute Research Methods Instructor for Chg Fwd Diagnoses Perforated duodenal ulcer K26.5
--- NOTE | 2020-07-23 07:09 | NUR.SHIFT ---
uneventful night, AO x4, no C/O pain at this time, supine 45 degrees call light within reach, abdominal incisions clean dry and intact
[2020-07-23] MEDS: sodium chloride 0.9% 1,000 ML 125 ML IV (08:18)
[2020-07-23] MEDS: enoxaparin 40 mg/0.4 mL Syringe SUBCUT (08:59)
[2020-07-23] MEDS: lidocaine 1% 5 ML in potassium chloride premix 100 ML 25 ML IV ×2 (09:00→12:18)
[2020-07-23 09:18] LABS: Magnesium 1.7 mg/dL (1.7-2.3)
[2020-07-23] MEDS: pantoprazole 40 mg SDV IVP ×2 (09:48→22:51)
[2020-07-23] MEDS: ondansetron 2 mg/ML SDV 2 mL 4 MG IVP ×2 (12:23→19:24)
--- NOTE | 2020-07-23 12:47 | PC.CHAP ---
Pastoral Care Encounter/Spiritual Assessment Type of Contact [] Declined salmon gillnet vessel operator visit [] Patient/Family/Request visit [] Outpatient visit [] Follow-up visit [] Physician referral [] Code/Alert [] Routine visit [] Staff referral [] Actively dying [] Patient sleeping [] Family support [] [] Out of room [] Palliative care [] [] Receiving care in room [] Pre-surgical visit [] Trauma [] Long length of stay [x] ICU visit [] Other: Relational/Emotional Strength [] Patient feels connected with others/family/visitors/staff [] Distress [] Loneliness/isolation [] Abandonment Spirituality of Patient [] Person of Audrey [] Attends Restorationist of their Audrey [] Believes in Prayer [] Reads Bible or Gnosticist materials [] There are Spiritual issues to be addressed Panelboard Assembler Interventions [x] Prayer [] Active listening [] Non-anxious presence [] Spiritual/emotional support [] Crisis/trauma care [] Spiritual counseling [] Bereavement support [] Provided bereavement packet [] Provided Bible/devotional materials [] Provided toy/stuffed animal, coloring book to patient or family member [] Provided Communion [] Anointing/[place] [] Salvation [x] Completed spiritual assessment [] Other: Impact on Illness or Injury [] Angry [] Fearful [] Anxious [] Often cries [] Exhaustion [] Unable to work [] Unable to attend yazdanism [] Unable to walk/stand [] Unable to read [] Unable to drive [] Unable to eat/drink [] Unable to sleep [] Unable to be with family [] Patient intubated [] Other: Summary Time spent with patient
--- NOTE | 2020-07-23 14:13 | P.PN_ITS ---
Subjective Subjective: Interval history: Judy reports overall her stomach feels better than it did when she first arrived. Medications: Reviewed: Yes Vitals/I&O/Wt Last Vital Signs Temp 100 F H 07/23/20 11:30 Pulse 113 H 07/23/20 13:04 Resp 24 H 07/23/20 12:30 BP 130/65 07/23/20 12:00 Pulse Ox 92 07/23/20 12:30 07/22/20 07/23/20 07/23/20 22:59 06:59 14:59 Intake Total 643.75 / 793.75 1050 / 1843.75 82.5 / 82.5 Output Total 270 / 420 155 / 575 375 / 375 Balance 373.75 / 373.75 895 / 1268.75 -292.5 / -292.5 Weight last 48 hrs Weight 68.946 kg Weight 58.967 kg Physical Exam Narrative: EXAM NARRATIVE: General exam is a white female no apparent distress HEENT: NG in place Cardiovascular tachycardic, regular, no murmur Lungs clear no wheezing or crackles. Diminished breath sounds are noted bilaterally Abdomen hypoactive bowel sounds was deferred Extremities no cyanosis clubbing or edema, cap refill brisk Urinary Catheter Management^: Bobo: Cath Placed During This Visit: no Reason for Continuing Indwelling Catheter: Acute Urinary Retention or Obstruction Data : 07/23/20 04:22 07/23/20 04:22 Micro: Microbiology 07/22/20 06:20 Blood Culture - Preliminary Blood NEGATIVE TO DATE 07/22/20 16:42 Blood Culture - Preliminary Blood SPECIMEN COLLECTED A&P Assessment and plan (1) Perforated duodenal ulcer: Acute peritonitis present on initial exam Postoperative day #1 status post diagnostic laparoscopy, repair of duodenal perforation with Alexander patch Continue IV Zosyn. She is still slightly tachycardic. Temperature of 100.0. I have expanded her antibiotic coverage with vancomycin. Blood cultures negative today Continue Protonix 40 mg IV every 12 hours Appreciate surgical consultation Status: Resolved (2) Free intraperitoneal air: Secondary to above Status: Acute (3) COPD (chronic obstructive pulmonary disease): Albuterol and Atrovent per inhalation as needed Status: Acute (4) Chronic back pain: Pain control for ulcer should be sufficient Status: Inactive Additional A&P Information Full code SCDs for DVT prophylaxis. Anticoagulation contraindicated secondary to perforated ulcer, duodenum Attestations Medical Necessity Statement*: Needs continued hospitalization, the antibiotics secondary to peritonitis, perforated duodenal ulcer that required surgery 07/22/2020 Critical Care Time: 34 minutes spent in critical care time at bedside in this patient with perforated duodenal ulcer requiring acute surgery with evidence of peritonitis. Vital signs are abnormal with tachycardia and low-grade fever. IV antibiotic expansion is needed and patient at high risk for decompensation. Coding Level of Care Code Acute Radiographer Technologist for [facility] Diagnoses Perforated duodenal ulcer K26.5 Free intraperitoneal air K66.8 COPD (chronic obstructive pulmonary disease) J44.9 Chronic back pain M54.9; G89.29
[2020-07-23] MEDS: vancomycin 1,000 MG in sodium chloride 0.9% 250 ML 250 MG IV (15:12)
[2020-07-23 19:19] LABS: ABG PCO2 40.8 mmHg (35-45); Base Excess ABG -6.1 mmol/L (-2.0-2.0); Oxygen Saturation ABG 99.1; Potassium Level - ABG 3.4 mmol/L (3.5-5.0)
[2020-07-23 19:20] LABS: Arterial Blood Gas Hematocrit 35.5 % (37-47); Blood Gas Allen Test pos; Blood Gas CCRB Time 1500; Blood Gas Sample Type Arterial; Oxygen Device vent
[2020-07-23 19:21] LABS: Alveolar-Arterial Oxygen Gradi 150.7 mmHg (5-10); Carboxyhemoglobin 0.7 %THgb (0.4-20.1); HGB O2 Sat 97.4 % (95-100); Total Hemoglobin 11.6 g/dL (12-16)
--- NOTE | 2020-07-23 19:31 | PC.NURSE ---
Assessment AO x4, abdominal dressings clean dry and intact, slight red tinged drainage to CONNIE drain, C/O nausea PRN Zofran administered per order, supine 45 degrees, call light within reach
[2020-07-24] VITALS (27 sets, daily range): BP systolic 100–149; BP diastolic 58–101; PULSE 112–135; RESP 16–33; TEMP 36.6–36.7; O2SAT 88–96
[2020-07-24] MEDS: vancomycin 1,000 MG in sodium chloride 0.9% 250 ML 250 MG IV ×2 (03:25→14:37)
[2020-07-24] MEDS: ondansetron 2 mg/ML SDV 2 mL 4 MG IVP ×2 (03:27→09:59)
[2020-07-24 03:35] LABS: Basophils % 0.2 %; Eosinophils % 0.1 %; Hematocrit 35.5 % (37.0-47.0); Lymphocytes # 1.8 10^3/uL (0.8-4.8); Lymphocytes % 11.2 %; Mean Corpuscular Hemoglobin 31.4 pg (28.0-34.0); Mean Corpuscular Volume 101.4 fL (81-99); Mean Platelet Volume 10.8 fL (7.4-10.4); Monocytes # 0.6 10^3/uL (0.2-0.9); Monocytes % 3.8 %; Neutrophils # 13.62 10^3/uL (1.8-7.7); Neutrophils % 84.2 %; Nucleated Red Blood Cells % 0.1 %; Platelet Count 352 10^3/cmm (130-400); Red Cell Distribution Width 18.1 % (12.1-15.1); White Blood Count 16.2 10^3/uL (4.0-10.0)
[2020-07-24 03:57] LABS: Alanine Aminotransferase 26 U/L (0-33); Albumin Level 2.5 g/dL (3.5-5.2); Alkaline Phosphatase 143 IU/L (35-105); Anion Gap 13.6 (5-19); Aspartate Amino Transferase 27 U/L (0-32); Blood Urea Nitrogen 23 mg/dL (8-23); Calcium 8.2 mg/dL (8.5-10.5); Carbon Dioxide 22 mmol/L (22-29); Chloride 111 mmol/L (98-107); Globulin 3.3 g/dL (1.3-4.6); Glomerular Filtration Rate 72.9 mL/min (90-130); Glucose 100 mg/dL (65-115); Osmolality Calculated 298 mOsm/kg (285-295); Potassium 4.6 mmol/L (3.5-5.1); Sodium 142 mmol/L (136-145); Total Bilirubin 0.4 mg/dL (0.15-1.2); Total Protein 5.8 g/dL (6.6-8.7)
[2020-07-24 03:58] LABS: Magnesium 2.1 mg/dL (1.7-2.3)
[2020-07-24] MEDS: morphine 4 mg/mL SDV 1 mL IVP (05:27)
--- NOTE | 2020-07-24 05:50 | P.PN_ITS ---
Subjective Subjective: Interval history: Patient overall stable and no acute events overnight, 250 mL per urine output and 150 mL per NG tube, continue to have serosanguineous output per abdominal drain Vitals/I&O/Wt Last Vital Signs Temp 98.1 F 07/24/20 03:00 Pulse 125 H 07/24/20 04:00 Resp 19 H 07/24/20 04:00 BP 130/101 07/24/20 04:00 Pulse Ox 91 07/24/20 04:00 07/23/20 07/23/20 07/24/20 14:59 22:59 06:59 Intake Total 132.5 / 132.5 300 / 432.5 Output Total 375 / 375 Balance -242.5 / -242.5 300 / 57.5 Weight last 48 hrs Weight 152 lb Weight 152 lb Weight 130 lb Physical Exam Narrative: EXAM NARRATIVE: Patient is conscious alert oriented X3 Head and neck examination PERRLA no masses no cervical lymphadenopathy no jaundice NG in place with light green gastric content Cardiac examination audible S1-S2 no murmurs no gallops no arrhythmias Chest rhonchi on the right side Abdomen nontender except slightly at the incision sites. Dry dressing in place nondistended soft no organomegaly guarding or rigidity/no signs of peritonitis. Right-sided drain with serosanguineous output Bobo catheter in place with concentrated urine Extremities no cyanosis no clubbing no edema Urinary Catheter Management^: Bobo: Cath Placed During This Visit: no Reason for Continuing Indwelling Catheter: Accurate Measurement of Urinary Output in Critically Ill Patients Data : 07/24/20 03:15 07/24/20 03:15 Micro: Microbiology 07/22/20 16:42 Blood Culture - Preliminary Blood NEGATIVE TO DATE 07/22/20 06:20 Blood Culture - Preliminary Blood NEGATIVE TO DATE A&P Assessment and plan (1) Perforated duodenal ulcer: We will follow on upper GI study today and start the patient later on on ice chips Recommend highly to get out of bed and ambulate Continue pharmacologic DVT prophylaxis Encourage incentive spirometer every hour We will continue coordinating with Dr. Solo On evening rounds patient had an upper GI study that showed: No leakage of contrast from the bowel lumen in the upper GI tract as above. Patient tried some p.o. intake but she got nauseous and NG was hooked back to low intermittent wall suction, try again slowly. We will be checking out to Dr. Pizarro as he agreed kindly to continue rounding on the patient while I am gone Assurance and education All questions have been answered and all concerns have been addressed to patient's satisfaction. Status: Resolved Attestations Medical Necessity Statement*: InPatient hospitalization for medical and surgical care Time Spent in Patient Care: (>than 50% of time spent in counselling and/or direct pt care on unit) . Coding Level of Care Code Acute Linting Machine Operator for Chg Fwd Diagnoses Perforated duodenal ulcer K26.5
[2020-07-24] MEDS: piperacillin-tazobactam 3.375 GM in sodium chloride 0.9% (plus) 50 ML IV ×3 (06:08→22:33)
--- NOTE | 2020-07-24 08:00 | FL_ITS ---
WS: [id number] [place] upper GI gastrografin [id number] REASON FOR EXAM: S/P laparoscopic repair of Perforated Doudenal ulcer FLUOROSCOPY TIME: 1.7 minutes FINDINGS: 100 mL of water-soluble contrast was instilled into the stomach through the nasogastric tube under fl uoroscopic direction with the patient semiupright and in the RPO position. The flow the contrast thro ugh the stomach, pylorus, duodenum, and duodenal bulb was observed under fluoroscopy. Stomach and pylorus appear unremarkable. There is some deformity of the duodenal bulb. The duodenal s weep was normal. No retroperitoneal or intraperitoneal extravasation of contrast from the upper GI tract was identifie d. FL/FL upper GI gastrografin [id number] IMPRESSION: No leakage of contrast from the bowel lumen in the upper GI tract as above.
[2020-07-24] MEDS: enoxaparin 40 mg/0.4 mL Syringe SUBCUT (08:02)
[2020-07-24] MEDS: morphine 4 mg/mL SDV 1 mL 2 MG IVP (08:02)
[2020-07-24] MEDS: sodium chloride 0.9% 1,000 ML 125 ML IV (08:02)
[2020-07-24] MEDS: diatrizoate meglumine 120 mL Sol PO (08:35)
--- NOTE | 2020-07-24 09:14 | PC.CHAP ---
Pastoral Care Encounter/Spiritual Assessment Type of Contact [] Declined clinical information systems director visit [] Patient/Family/Request visit [] Outpatient visit [] Follow-up visit [] Physician referral [] Code/Alert [] Routine visit [] Staff referral [] Actively dying [] Patient sleeping [] Family support [] [] Out of room [] Palliative care [] [] Receiving care in room [] Pre-surgical visit [] Trauma [] Long length of stay [x] ICU visit [] Other: Relational/Emotional Strength [] Patient feels connected with others/family/visitors/staff [] Distress [] Loneliness/isolation [] Abandonment Spirituality of Patient [] Person of Audrey [] Attends Quaker of their Audrey [] Believes in Prayer [] Reads Bible or Episcopal materials [] There are Spiritual issues to be addressed [place] [place] Tender Interventions [x] Prayer [] Active listening [] Non-anxious presence [] Spiritual/emotional support [] Crisis/trauma care [] Spiritual counseling [] Bereavement support [] Provided bereavement packet [] Provided Bible/devotional materials [] Provided toy/stuffed animal, coloring book to patient or family member [] Provided Communion [] Anointing/[place] [] Salvation [x] Completed spiritual assessment [] Other: Impact on Illness or Injury [] Angry [] Fearful [] Anxious [] Often cries [] Exhaustion [] Unable to work [] Unable to attend lutheran [] Unable to walk/stand [] Unable to read [] Unable to drive [] Unable to eat/drink [] Unable to sleep [] Unable to be with family [] Patient intubated [] Other: Summary Time spent with patient
[2020-07-24] MEDS: pantoprazole 40 mg SDV IVP (09:56)
--- NOTE | 2020-07-24 10:20 | PC.NURSE ---
to xray for gi study and back to room... c/o nausea ng to suction and zofran given
--- NOTE | 2020-07-24 11:54 | PC.NURSE ---
up to bsc at this time ... ng to low suction continues to have some nausea at this time.
--- NOTE | 2020-07-24 14:15 | PM.PN ---
Subjective Subjective: Interval history: Judy reports she is doing okay. Has not passed any stool yet or had any gas. Wants to get up out of bed. Medications: Reviewed: Yes Vitals/I&O/Wt Last Vital Signs Temp 98.1 F 07/24/20 03:00 Pulse 118 H 07/24/20 14:00 Resp 17 07/24/20 14:00 BP 125/73 07/24/20 11:00 Pulse Ox 92 07/24/20 08:01 07/23/20 07/24/20 07/24/20 22:59 06:59 14:59 Intake Total 1300 / 1432.5 50 / 1482.5 300 / 300 Output Total 450 / 825 350 / 350 Balance 1300 / 1057.5 -400 / 657.5 -50 / -50 Weight last 48 hrs Weight 67.132 kg Weight 68.946 kg Weight 68.946 kg Physical Exam Narrative: EXAM NARRATIVE: General exam is a white female no apparent distress HEENT: NG in place Cardiovascular tachycardic, regular, no murmur Lungs clear Abdomen hypoactive bowel sounds Extremities no cyanosis clubbing or edema, cap refill brisk Urinary Catheter Management^: Bobo: Cath Placed During This Visit: no Reason for Continuing Indwelling Catheter: Acute Urinary Retention or Obstruction Data : 07/24/20 03:15 07/24/20 03:15 Micro: Microbiology 07/22/20 16:42 Blood Culture - Preliminary Blood NEGATIVE TO DATE A&P Assessment and plan (1) Perforated duodenal ulcer: Acute peritonitis present on initial exam Postoperative day #2 status post diagnostic laparoscopy, repair of duodenal perforation with Alexander patch Continue IV Zosyn and vancomycin Blood cultures negative to date Change Protonix to p.o. Gastrografin study today demonstrated no leak Appreciate surgical consultation Status: Resolved (2) Free intraperitoneal air: Secondary to above. Resolved Status: Acute (3) COPD (chronic obstructive pulmonary disease): Albuterol and Atrovent per inhalation as needed Status: Acute (4) Chronic back pain: Pain control for ulcer should be sufficient Status: Inactive Additional A&P Information Full code SCDs for DVT prophylaxis. Lovenox for DVT prophylaxis 07/24 clear liquid diet started. Continue on IV antibiotics for peritonitis. Still tachycardic. When significant clinical improvement occurs consider transfer to second floor. Attestations Medical Necessity Statement*: Needs continued hospitalization for close monitoring on IV antibiotics for peritonitis with recent surgery for perforated duodenal ulcer. Coding Level of Care Code Acute Station Air Traffic Control Specialist for Chg Fwd Diagnoses Perforated duodenal ulcer K26.5 Free intraperitoneal air K66.8 COPD (chronic obstructive pulmonary disease) J44.9 Chronic back pain M54.9; G89.29
--- NOTE | 2020-07-24 14:50 | PC.RESP ---
Smoking Cessation and Pulmonary Rehab packet sent to patient.
[2020-07-24] MEDS: pantoprazole DR 40 mg Tablet PO (17:15)
[2020-07-25] VITALS (25 sets, daily range): BP systolic 103–137; BP diastolic 56–77; PULSE 113–130; RESP 18–36; TEMP 36.1–36.7; O2SAT 87–95
[2020-07-25] MEDS: sodium chloride 0.9% 1,000 ML 100 ML IV (01:35)
[2020-07-25] MEDS: ondansetron 2 mg/ML SDV 2 mL 4 MG IVP (01:43)
[2020-07-25 03:16] LABS: Basophils % 0.3 %; Eosinophils % 0.1 %; Hematocrit 36.5 % (37.0-47.0); Hemoglobin 11.1 g/dL (11.5-15.3); Lymphocytes # 1.7 10^3/uL (0.8-4.8); Lymphocytes % 11.3 %; Mean Corpuscular HGB Conc 30.4 g/dL (30.0-36.0); Mean Corpuscular Hemoglobin 31.5 pg (28.0-34.0); Mean Corpuscular Volume 103.7 fL (81-99); Mean Platelet Volume 10.6 fL (7.4-10.4); Monocytes # 0.5 10^3/uL (0.2-0.9); Monocytes % 3.4 %; Neutrophils # 12.34 10^3/uL (1.8-7.7); Neutrophils % 84.4 %; Nucleated Red Blood Cells % 0.3 %; Platelet Count 388 10^3/cmm (130-400); Red Blood Count 3.52 10^6/uL (4.1-5.3); Red Cell Distribution Width 18.5 % (12.1-15.1); White Blood Count 14.6 10^3/uL (4.0-10.0)
[2020-07-25 03:33] LABS: Alanine Aminotransferase 22 U/L (0-33); Albumin Level 2.6 g/dL (3.5-5.2); Alkaline Phosphatase 128 IU/L (35-105); Anion Gap 17.8 (5-19); Aspartate Amino Transferase 19 U/L (0-32); Blood Urea Nitrogen 21 mg/dL (8-23); Calcium 8.2 mg/dL (8.5-10.5); Carbon Dioxide 18 mmol/L (22-29); Chloride 112 mmol/L (98-107); Globulin 3.3 g/dL (1.3-4.6); Glomerular Filtration Rate 101.6 mL/min (90-130); Glucose 107 mg/dL (65-115); Osmolality Calculated 301 mOsm/kg (285-295); Potassium 3.8 mmol/L (3.5-5.1); Sodium 144 mmol/L (136-145); Total Bilirubin 0.4 mg/dL (0.15-1.2); Total Protein 5.9 g/dL (6.6-8.7)
[2020-07-25 04:00] LABS: Vancomycin Trough 14.6 ug/mL (10-15)
[2020-07-25] MEDS: vancomycin 1,000 MG in sodium chloride 0.9% 250 ML 200 MG IV ×2 (04:10→16:05)
[2020-07-25] MEDS: piperacillin-tazobactam 3.375 GM in sodium chloride 0.9% (plus) 50 ML IV ×3 (05:58→22:10)
[2020-07-25] MEDS: pantoprazole DR 40 mg Tablet PO ×2 (08:31→18:01)
[2020-07-25] MEDS: enoxaparin 40 mg/0.4 mL Syringe SUBCUT (08:31)
--- NOTE | 2020-07-25 08:40 | PC.NURSE ---
scd machine not available on [employer] sq and up in room frequent to bsc and chair .
[2020-07-25] MEDS: morphine 4 mg/mL SDV 1 mL 2 MG IVP (09:25)
--- NOTE | 2020-07-25 09:50 | PC.SOCIAL ---
IMM Page 2 of IMM explained to patient. Initialed, dated, and timed and placed in chart. Copy provided to patient.
--- NOTE | 2020-07-25 11:18 | PM.PN ---
Subjective Subjective: Interval history: Patient continues to have significant NG output, had multiple bowel movements, feels thirsty Vitals/I&O/Wt Last Vital Signs Temp 97 F L 07/25/20 10:00 Pulse 121 H 07/25/20 10:00 Resp 33 H 07/25/20 10:00 BP 111/66 07/25/20 10:00 Pulse Ox 95 07/25/20 10:00 07/24/20 07/25/20 07/25/20 22:59 06:59 14:59 Intake Total 1350 / 1700 50 / 1700 200 / 200 Output Total 1300 / 1815 165 / 1815 200 / 200 Balance 50 / -115 -115 / -115 0 / 0 Weight last 48 hrs Weight 148 lb Weight 152 lb Physical Exam Narrative: EXAM NARRATIVE: Abdomen: Soft, tender, nondistended, incision clean dry and intact Urinary Catheter Management^: Bobo: Cath Placed During This Visit: no Reason for Continuing Indwelling Catheter: Accurate Measurement of Urinary Output in Critically Ill Patients Data : 07/25/20 02:39 07/25/20 02:39 A&P Assessment and plan (1) S/P laparoscopy: Status post laparoscopic repair of duodenal perforation postop day 3 Upper GI did not any evidence of leak, patient continues to significant nausea and high NG output Continue IV vancomycin and Zosyn Patient on p.o. Protonix but not sure about absorption since she also has an NG tube in place we will add IV Pepcid twice daily Wean O2 to room air, I-S DC Bobo Ambulate ad nina. Lovenox /SCD for DVT prophylaxis Status: Acute Attestations Medical Necessity Statement*: Patient will need greater than 2 nights of inpatient stay until recovery from surgery Coding Level of Care Code Acute E Commerce Director for Chg Fwd Diagnoses S/P laparoscopy Z98.890
--- NOTE | 2020-07-25 11:32 | PC.NURSE ---
up in chair no distress frequent request for ice and water at this time .. new canister at this time
[2020-07-25] MEDS: famotidine 20 mg/2 mL INJ IVP ×2 (12:31→23:21)
--- NOTE | 2020-07-25 13:59 | PC.NURSE ---
ng clamped and up to bsc at this time loose liquid bm noted continue to talke sips and chips
--- NOTE | 2020-07-25 14:46 | PM.PN ---
Subjective Subjective: Interval history: Patient is doing okay. The pain is well controlled. No vomiting. No fever or chills. No chest pain, shortness of breath, cough, palpitations. Medications: Reviewed: Yes Vitals/I&O/Wt Last Vital Signs Temp 97 F L 07/25/20 10:00 Pulse 128 H 07/25/20 14:00 Resp 31 H 07/25/20 14:00 BP 129/71 07/25/20 13:00 Pulse Ox 89 L 07/25/20 14:00 07/24/20 07/25/20 07/25/20 22:59 06:59 14:59 Intake Total 1350 / 1650 50 / 1700 450 / 450 Output Total 1300 / 1650 165 / 1815 200 / 200 Balance 50 / 0 -115 / -115 250 / 250 Weight last 48 hrs Weight 67.132 kg Physical Exam Narrative: EXAM NARRATIVE: Awake alert oriented. No acute distress. Mood and affect are appropriate. Responses are adequate. Skin warm and dry. Moist extremities. Neck supple. No JVD Lungs clear bilaterally. No respiratory distress Heart S1, S2, regular Abdomen soft, nontender, slightly distended, bowel sounds are present. Extremities no calf tenderness or peripheral cyanosis. Normal capillary refill. Urinary Catheter Management^: Bobo: Cath Placed During This Visit: no Reason for Continuing Indwelling Catheter: Accurate Measurement of Urinary Output in Critically Ill Patients Data : 07/25/20 02:39 07/25/20 02:39 A&P Additional A&P Information (1) Perforated duodenal ulcer: Acute peritonitis present on initial exam Postoperative day #2 status post diagnostic laparoscopy, repair of duodenal perforation with Alexander patch Continue IV Zosyn and vancomycin Blood cultures negative to date Change Protonix to p.o. Gastrografin study today demonstrated no leak Appreciate surgical consultation Status: Resolved (2) Free intraperitoneal air: Secondary to above. Resolved Status: Acute (3) COPD (chronic obstructive pulmonary disease): Albuterol and Atrovent per inhalation as needed Status: Acute (4) Chronic back pain: Pain control for ulcer should be sufficient Status: Inactive Additional A&P Information Full code SCDs for DVT prophylaxis. Lovenox for DVT prophylaxis 07/24 clear liquid diet started. Continue on IV antibiotics for peritonitis. Still tachycardic. When significant clinical improvement occurs consider transfer to second floor. 07/25 [place] Doing well. Continue current management. Diet per surgery. Continue monitoring anemia. Tachycardia is better. Lovenox for DVT prophylaxis. Attestations Medical Necessity Statement*: Still requires close monitoring and adjustments of the treatments. Coding Level of Care Code Acute Executive Director Of Nursing for Seb Uribe
[2020-07-26] VITALS (27 sets, daily range): BP systolic 105–131; BP diastolic 54–77; PULSE 100–130; RESP 18–52; TEMP 36.4–36.8; O2SAT 88–98
[2020-07-26] MEDS: morphine 4 mg/mL SDV 1 mL 2 MG IVP (02:47)
[2020-07-26] MEDS: vancomycin 1,000 MG in sodium chloride 0.9% 250 ML 200 MG IV ×2 (03:18→14:30)
[2020-07-26 03:51] LABS: Basophils % 0.4 %; Eosinophils % 0.2 %; Hematocrit 40.2 % (37.0-47.0); Hemoglobin 12.3 g/dL (11.5-15.3); Lymphocytes % 18.3 %; Mean Corpuscular HGB Conc 30.6 g/dL (30.0-36.0); Mean Corpuscular Hemoglobin 31.1 pg (28.0-34.0); Mean Corpuscular Volume 101.8 fL (81-99); Mean Platelet Volume 11.4 fL (7.4-10.4); Monocytes # 0.9 10^3/uL (0.2-0.9); Monocytes % 7.8 %; Neutrophils # 8.08 10^3/uL (1.8-7.7); Neutrophils % 72.6 %; Nucleated Red Blood Cells # 0.1 /100WBC; Nucleated Red Blood Cells % 0.8 %; Platelet Count 381 10^3/cmm (130-400); Red Blood Count 3.95 10^6/uL (4.1-5.3); Red Cell Distribution Width 18.5 % (12.1-15.1); White Blood Count 11.1 10^3/uL (4.0-10.0)
[2020-07-26 04:14] LABS: Albumin Level 2.3 g/dL (3.5-5.2); Blood Urea Nitrogen 21 mg/dL (8-23); Calcium 8.6 mg/dL (8.5-10.5); Carbon Dioxide 19 mmol/L (22-29); Chloride 112 mmol/L (98-107); Glomerular Filtration Rate 125.4 mL/min (90-130); Glucose 122 mg/dL (65-115); Magnesium 1.9 mg/dL (1.7-2.3); Phosphorus 2.5 mg/dL (2.5-4.5); Sodium 143 mmol/L (136-145)
[2020-07-26 04:17] LABS: Anion Gap 15.5 (5-19); Potassium 3.5 mmol/L (3.5-5.1)
[2020-07-26] MEDS: piperacillin-tazobactam 3.375 GM in sodium chloride 0.9% (plus) 50 ML IV ×4 (05:27→21:43)
--- NOTE | 2020-07-26 08:53 | ECG_ITS ---
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 Measurements Intervals [place] Rate: 119 P: 0 IL: 115 QRS: 8 QRSD: 75 T: 27 QT: 318 QTc: 447 Interpretive Statements SINUS TACHYCARDIA WITH SHORT [place] INTERVAL POSSIBLE LEFT ATRIAL ENLARGEMENT [-0.1mV P WAVE IN V1/V2] Compared to ECG 07/22/2020 06:20:36 Sinus rhythm no longer present T-wave abnormality no longer present Electronically Signed On 07-27-2020 21:11:59 COUNTY JUDGE by Soraya Burgos M.D. [id number]
[2020-07-26] MEDS: enoxaparin 40 mg/0.4 mL Syringe SUBCUT (09:50)
[2020-07-26] MEDS: FUROsemide 10 mg/mL SDV 4mL 40 MG IVP (09:50)
[2020-07-26] MEDS: pantoprazole DR 40 mg Tablet PO (09:50)
[2020-07-26] MEDS: famotidine 20 mg/2 mL INJ IVP (10:41)
[2020-07-26] MEDS: ondansetron 2 mg/ML SDV 2 mL 4 MG IVP ×2 (10:46→21:01)
--- NOTE | 2020-07-26 10:59 | PC.NURSE ---
dyspnic and short of breath lasix given prior .. browning reinserted with return of over 300 cc clear urine also has c/o nausea at this time zofran given iv and ng to sx with po intake decreased to sip and chips
--- NOTE | 2020-07-26 11:26 | PC.NURSE ---
continues nausea ng to suction and Dr Pizarro here aware sips and chips only
--- NOTE | 2020-07-26 12:00 | PC.NURSE ---
resting comfortable at this time urine output good at this time
--- NOTE | 2020-07-26 12:09 | PM.PN ---
Subjective Subjective: Interval history: Patient became short of breath this morning and also had nausea and vomiting. She had been on ice chips yesterday and the NG tube was put back to suction. She has had bowel movements. A Bobo catheter was placed and patient was being diuresed today Vitals/I&O/Wt Last Vital Signs Temp 97.8 F 07/26/20 06:00 Pulse 116 H 07/26/20 11:00 Resp 18 07/26/20 08:00 BP 131/68 07/26/20 11:00 Pulse Ox 94 07/26/20 11:00 07/25/20 07/26/20 07/26/20 22:59 06:59 14:59 Intake Total 1250 / 2350 650 / 2350 380 / 380 Output Total 980 / 1200 20 / 1200 Balance 270 / 1150 630 / 1150 380 / 380 Weight last 48 hrs Weight 150 lb 1.6 oz Physical Exam Narrative: EXAM NARRATIVE: Abdomen: Soft, mildly distended, nontender, incision clean dry and intact, CONNIE drain output is serosanguineous Urinary Catheter Management^: Bobo: Cath Placed During This Visit: no Reason for Continuing Indwelling Catheter: Accurate Measurement of Urinary Output in Critically Ill Patients Data : 07/26/20 03:02 07/26/20 03:02 Micro: Microbiology 07/22/20 06:20 Blood Culture - Preliminary Blood Gram positive agueda A&P Assessment and plan (1) S/P laparoscopy: Status post laparoscopic repair of duodenal perforation postop day 4 Upper GI did not any evidence of leak, patient continues to significant nausea Continue IV vancomycin and Zosyn Patient on p.o. Protonix but not sure about absorption since she also has an NG tube in place we will add IV Pepcid twice daily Wean O2 to room air, I-S Bobo to gravity for diuresis Ambulate ad nina. Lovenox /SCD for DVT prophylaxis Status: Acute Attestations Medical Necessity Statement*: Patient requiring continued ICU stay for IV antibiotics and management of shortness of breath Coding Level of Care Code Acute Nuclear Plant Instrument Technician for Chg Fwd Diagnoses S/P laparoscopy Z98.890
--- NOTE | 2020-07-26 13:42 | PM.PN ---
Subjective Subjective: Interval history: Developed mild respiratory distress this morning. The nurse detected bilateral crackles. She stopped IV fluids. The patient denies chest pain. No nausea or vomiting. No fever. Abdominal pain is well controlled. Medications: Reviewed: Yes Medication Review Details: Generic Name Dose Route Start Last Admin Trade Name Freq PRN Reason Stop Dose Admin Enoxaparin Sodium 40 mg 07/23/20 08:30 07/26/20 09:50 Enoxaparin 40 Mg /0.4 Ml Syringe SUBCUT 40 mg Q24H ANTONIETA Administration Famotidine 20 mg 07/25/20 11:30 07/26/20 10:41 Famotidine 20 Mg /2 Ml Inj IVP 20 mg Q12H ANTONIETA Administration Sodium Chloride 1,000 mls @ 100 m ls/hr 07/22/20 15:24 07/25/20 15:47 Sodium Chloride 0.9% IV Not Given .Q10H ANTONIETA Vancomycin HCl 1,0 00 mg/ 250 mls @ 250 mls /hr 07/23/20 15:00 07/26/20 03:18 Sodium Chloride IV 200 mls/hr Q12H ANTONIETA Administration Piperacillin Sod/T azobactam 50 mls @ 100 mls/ hr 07/25/20 16:00 07/26/20 09:50 Sod 3.375 gm/ So dium Chloride IV 100 mls/hr Q6H ANTONIETA Administration Protocol Morphine Sulfate 2 mg 07/24/20 07:35 07/26/20 02:47 Morphine 4 Mg/Ml Sdv 1 Ml IVP 2 mg Q4H PRN Administration SEVERE PAIN Ondansetron HCl 4 mg 07/22/20 10:36 07/26/20 10:46 Ondansetron 2 Mg /Ml Sdv 2 Ml IVP 4 mg Q6H PRN Administration NAUSEA AND VOMITI NG Pantoprazole Sodiu m 40 mg 07/24/20 18:00 07/26/20 09:[address] 40 Mg Tablet PO 40 mg BID ANTONIETA Administration Vitals/I&O/Wt Last Vital Signs Temp 97.8 F 07/26/20 06:00 Pulse 115 H 07/26/20 13:00 Resp 18 07/26/20 08:00 BP 121/61 07/26/20 13:00 Pulse Ox 94 07/26/20 13:00 12/07/26/20 07/26/20 22:59 06:59 14:59 Intake Total 1250 / 1700 650 / 2350 380 / 380 Output Total 980 / 1180 20 / 1200 Balance 270 / 520 630 / 1150 380 / 380 Weight last 48 hrs Weight 68.084 kg Physical Exam Narrative: EXAM NARRATIVE: Awake alert oriented. No acute distress. Mood and affect are appropriate. Responses are adequate. Skin warm and dry. Moist extremities. Neck supple. No JVD Lungs bilateral crackles are present. No respiratory distress Heart S1, S2, regular Abdomen soft, nontender, slightly distended, bowel sounds are present. Extremities no calf tenderness or peripheral cyanosis. Normal capillary refill. Urinary Catheter Management^: Bobo: Cath Placed During This Visit: no Reason for Continuing Indwelling Catheter: Accurate Measurement of Urinary Output in Critically Ill Patients Data : 07/26/20 03:02 07/26/20 03:02 Micro: Microbiology 07/22/20 06:20 Blood Culture - Preliminary Blood Gram positive agueda A&P Assessment and plan (1) Perforated duodenal ulcer: Acute peritonitis present on initial exam Postoperative day #2 status post diagnostic laparoscopy, repair of duodenal perforation with Alexander patch Continue IV Zosyn and vancomycin Blood cultures negative to date Change Protonix to p.o. Gastrografin study today demonstrated no leak Appreciate surgical consultation Status: Resolved (2) Free intraperitoneal air: Secondary to above. Resolved Status: Resolved (3) COPD (chronic obstructive pulmonary disease): Albuterol and Atrovent per inhalation as needed Status: Acute (4) Chronic back pain: Pain control for ulcer should be sufficient Status: Inactive Additional A&P Information (1) Perforated duodenal ulcer: Acute peritonitis present on initial exam Postoperative day #2 status post diagnostic laparoscopy, repair of duodenal perforation with Alexander patch Continue IV Zosyn and vancomycin Blood cultures negative to date Change Protonix to p.o. Gastrografin study today demonstrated no leak Appreciate surgical consultation Status: Resolved (2) Free intraperitoneal air: Secondary to above. Resolved Status: Acute (3) COPD (chronic obstructive pulmonary disease): Albuterol and Atrovent per inhalation as needed Status: Acute (4) Chronic back pain: Pain control for ulcer should be sufficient Status: Inactive Additional A&P Information Full code SCDs for DVT prophylaxis. Lovenox for DVT prophylaxis 07/24 clear liquid diet started. Continue on IV antibiotics for peritonitis. Still tachycardic. When significant clinical improvement occurs consider transfer to second floor. 07/26 [place] Doing okay after the surgery. Continue pain management. Diet per surgery. Suspected fluid overload. IV fluids are discontinued. We will give her 1 dose of Lasix. Tachycardia. Unchanged since yesterday. Probably related to above. Will look at her twelve-lead EKG. Continue Lovenox for DVT prophylaxis. Attestations Medical Necessity Statement*: The plan of care requires inpatient hospitalization for aggressive management in the postoperative period Coding Level of Care Code Acute Male Infertility Specialist for g Fwd Diagnoses Perforated duodenal ulcer K26.5 Free intraperitoneal air K66.8 COPD (chronic obstructive pulmonary disease) J44.9 Chronic back pain M54.9; G89.29
[2020-07-27] VITALS (25 sets, daily range): BP systolic 94–128; BP diastolic 53–71; PULSE 94–119; RESP 15–28; TEMP 36.4–36.9; O2SAT 93–98
[2020-07-27] MEDS: famotidine 20 mg/2 mL INJ IVP ×3 (00:18→23:28)
[2020-07-27] MEDS: vancomycin 1,000 MG in sodium chloride 0.9% 250 ML 200 MG IV ×2 (03:01→14:30)
[2020-07-27] MEDS: morphine 4 mg/mL SDV 1 mL 2 MG IVP (04:21)
[2020-07-27] MEDS: piperacillin-tazobactam 3.375 GM in sodium chloride 0.9% (plus) 50 ML IV ×4 (04:22→22:03)
[2020-07-27 04:43] LABS: Basophils % 0.2 %; Eosinophils # 0.1 10^3/uL (0.0-0.8); Eosinophils % 0.6 %; Hematocrit 37.7 % (37.0-47.0); Hemoglobin 12.2 g/dL (11.5-15.3); Lymphocytes # 1.9 10^3/uL (0.8-4.8); Lymphocytes % 20.1 %; Mean Corpuscular HGB Conc 32.4 g/dL (30.0-36.0); Mean Corpuscular Hemoglobin 31.8 pg (28.0-34.0); Mean Corpuscular Volume 98.2 fL (81-99); Mean Platelet Volume 10.1 fL (7.4-10.4); Monocytes % 10.5 %; Neutrophils # 6.41 10^3/uL (1.8-7.7); Neutrophils % 67.9 %; Nucleated Red Blood Cells # 0.1 /100WBC; Platelet Count 486 10^3/cmm (130-400); Red Blood Count 3.84 10^6/uL (4.1-5.3); Red Cell Distribution Width 17.8 % (12.1-15.1); White Blood Count 9.5 10^3/uL (4.0-10.0)
[2020-07-27 05:01] LABS: Alanine Aminotransferase 17 U/L (0-33); Albumin Level 2.2 g/dL (3.5-5.2); Alkaline Phosphatase 131 IU/L (35-105); Anion Gap 15.3 (5-19); Aspartate Amino Transferase 34 U/L (0-32); Carbon Dioxide 20 mmol/L (22-29); Chloride 112 mmol/L (98-107); Globulin 3.3 g/dL (1.3-4.6); Glomerular Filtration Rate 72.9 mL/min (90-130); Glucose 102 mg/dL (65-115); Potassium 3.3 mmol/L (3.5-5.1); Sodium 144 mmol/L (136-145); Total Bilirubin 0.5 mg/dL (0.15-1.2); Total Protein 5.5 g/dL (6.6-8.7)
[2020-07-27 05:44] LABS: Blood Urea Nitrogen 16 mg/dL (8-23); Calcium 8.2 mg/dL (8.5-10.5); Magnesium 1.8 mg/dL (1.7-2.3); Osmolality Calculated 299 mOsm/kg (285-295)
[2020-07-27] MEDS: pantoprazole DR 40 mg Tablet PO ×2 (08:28→17:58)
[2020-07-27] MEDS: enoxaparin 40 mg/0.4 mL Syringe SUBCUT (08:29)
[2020-07-27] MEDS: potassium chloride premix 100 ML 25 MEQ IV (09:28)
--- NOTE | 2020-07-27 09:31 | PC.CHAP ---
Pastoral Care Encounter/Spiritual Assessment Type of Contact [] Declined plastic duplicator visit [] Patient/Family/Request visit [] Outpatient visit [] Follow-up visit [] Physician referral [] Code/Alert [] Routine visit [] Staff referral [] Actively dying [] Patient sleeping [] Family support [] [] Out of room [] Palliative care [] [] Receiving care in room [] Pre-surgical visit [] Trauma [] Long length of stay [] ICU visit [] Other: Relational/Emotional Strength [] Patient feels connected with others/family/visitors/staff [] Distress [] Loneliness/isolation [] Abandonment Spirituality of Patient [] Person of Audrey [] Attends Jewish of their Audrey [] Believes in Prayer [] Reads Bible or Church materials [] There are Spiritual issues to be addressed Oceanology Teacher Interventions [x] Prayer [] Active listening [] Non-anxious presence [] Spiritual/emotional support [] Crisis/trauma care [] Spiritual counseling [] Bereavement support [] Provided bereavement packet [] Provided Bible/devotional materials [] Provided toy/stuffed animal, coloring book to patient or family member [] Provided Communion [] Anointing/[place] [] Salvation [x] Completed spiritual assessment [] Other: Impact on Illness or Injury [] Angry [] Fearful [] Anxious [] Often cries [] Exhaustion [] Unable to work [] Unable to attend faith [] Unable to walk/stand [] Unable to read [] Unable to drive [] Unable to eat/drink [] Unable to sleep [] Unable to be with family [] Patient intubated [] Other: Summary Time spent with patient
--- NOTE | 2020-07-27 11:05 | PC.NURSE ---
ambulation patient ambulated in hallway with walker and 1 assist by nurse. patient tolerated ambulation well. oxygen taken off patient earlier in shift, vital signs WNL.
--- NOTE | 2020-07-27 11:27 | PM.PN ---
Subjective Subjective: Interval history: The patient reports feeling better. Still has some abdominal discomfort. No fevers or chills. No nausea or vomiting. No BM yet. Denies shortness of breath today. No chest pain or palpitations. She reports always having increased heart rate. Medications: Reviewed: Yes Medication Review Details: Generic Name Dose Route Start Last Admin Trade Name Freq PRN Reason Stop Dose Admin Enoxaparin Sodium 40 mg 07/23/20 08:30 07/27/20 08:29 Enoxaparin 40 Mg /0.4 Ml Syringe SUBCUT 40 mg Q24H ANTONIETA Administration Famotidine 20 mg 07/25/20 11:30 07/27/20 00:18 Famotidine 20 Mg /2 Ml Inj IVP 20 mg Q12H ANTONIETA Administration Vancomycin HCl 1,0 00 mg/ 250 mls @ 250 mls /hr 07/23/20 15:00 07/27/20 03:01 Sodium Chloride IV 200 mls/hr Q12H ANTONIETA Administration Piperacillin Sod/T azobactam 50 mls @ 100 mls/ hr 07/25/20 16:00 07/27/20 10:00 Sod 3.375 gm/ So dium Chloride IV Infused Q6H ANTONIETA Infusion Protocol Potassium Chloride 100 mls @ 25 mls/ hr 07/27/20 09:00 07/27/20 09:28 [place] IV 07/27/20 12:59 25 mls/hr ONCE ONE Administration Morphine Sulfate 2 mg 07/24/20 07:35 07/27/20 04:21 Morphine 4 Mg/Ml Sdv 1 Ml IVP 2 mg Q4H PRN Administration SEVERE PAIN Ondansetron HCl 4 mg 07/22/20 10:36 07/26/20 21:01 Ondansetron 2 Mg /Ml Sdv 2 Ml IVP 4 mg Q6H PRN Administration NAUSEA AND VOMITI NG Pantoprazole Sodiu m 40 mg 07/24/20 18:00 07/27/20 08:[address] 40 Mg Tablet PO 40 mg BID ANTONIETA Administration Vitals/I&O/Wt Last Vital Signs Temp 97.6 F 07/27/20 08:00 Pulse 119 H 07/27/20 10:00 Resp 28 H 07/27/20 10:00 BP 118/64 07/27/20 10:00 Pulse Ox 95 07/27/20 10:00 07/26/20 07/27/20 07/27/20 22:59 06:59 14:59 Intake Total 940 / 1370 50 / 1420 Output Total 1920 / 1920 450 / 2370 Balance -980 / -550 -400 / -950 Weight last 48 hrs Weight 67.449 kg Weight 68.084 kg Physical Exam Narrative: EXAM NARRATIVE: Awake alert oriented. No acute distress. Mood and affect are appropriate. Responses are adequate. Skin warm and dry. Moist extremities. Neck supple. No JVD Very minimal bilateral crackles, much better than yesterday. No respiratory distress. Heart S1, S2, regular tachycardia. Abdomen soft, nontender, slightly distended, bowel sounds are weak. Extremities no calf tenderness or peripheral cyanosis. Normal capillary refill. Urinary Catheter Management^: Bobo: Cath Placed During This Visit: yes Reason for Continuing Indwelling Catheter: Accurate Measurement of Urinary Output in Critically Ill Patients Urinary Catheter Date of Insertion: 07/26/20 Urinary Catheter Time of Insertion: 13:00 Data : 07/27/20 03:52 07/27/20 03:52 Micro: Microbiology 07/27/20 09:26 Blood Culture - Preliminary Blood SPECIMEN COLLECTED 07/27/20 09:21 Blood Culture - Preliminary Blood SPECIMEN COLLECTED A&P Assessment and plan (1) Perforated duodenal ulcer: Acute peritonitis present on initial exam Postoperative day #2 status post diagnostic laparoscopy, repair of duodenal perforation with Alexander patch Continue IV Zosyn and vancomycin Blood cultures negative to date Change Protonix to p.o. Gastrografin study today demonstrated no leak Appreciate surgical consultation Status: Resolved (2) Free intraperitoneal air: Secondary to above. Resolved Status: Resolved (3) COPD (chronic obstructive pulmonary disease): Albuterol and Atrovent per inhalation as needed Status: Acute (4) Chronic back pain: Pain control for ulcer should be sufficient Status: Inactive Additional A&P Information (1) Perforated duodenal ulcer: Acute peritonitis present on initial exam Postoperative day #2 status post diagnostic laparoscopy, repair of duodenal perforation with Alexander patch Continue IV Zosyn and vancomycin Blood cultures negative to date Change Protonix to p.o. Gastrografin study today demonstrated no leak Appreciate surgical consultation Status: Resolved (2) Free intraperitoneal air: Secondary to above. Resolved Status: Acute (3) COPD (chronic obstructive pulmonary disease): Albuterol and Atrovent per inhalation as needed Status: Acute (4) Chronic back pain: Pain control for ulcer should be sufficient Status: Inactive Additional A&P Information Full code SCDs for DVT prophylaxis. Lovenox for DVT prophylaxis 07/24 clear liquid diet started. Continue on IV antibiotics for peritonitis. Still tachycardic. When significant clinical improvement occurs consider transfer to second floor. 07/27 [place] Perforated duodenal ulcer. S/p laparoscopy and repair or perforation with Alexander patch. Doing okay after the surgery. Continue pain management. Diet per surgery. Will discuss with Dr. Rizzo regarding possible TPN until she is able to eat and tolerate diet. Gram-negative bacteremia. Continue Zosyn. We will recheck her cultures. Moderate degree protein calorie malnutrition. As discussed above. Suspected fluid overload. IV fluids are discontinued. Resolved. Close monitoring. Hypokalemia. Replace and monitor. Tachycardia. Unchanged since yesterday. Probably related to above. Continue Lovenox for DVT prophylaxis. Attestations Medical Necessity Statement*: The above described plan of care still requires her to remain hospitalized. Coding Level of Care Code Acute Equipment Operator [employer] for g Fwd Diagnoses Perforated duodenal ulcer K26.5 Free intraperitoneal air K66.8 COPD (chronic obstructive pulmonary disease) J44.9 Chronic back pain M54.9; G89.29
--- NOTE | 2020-07-27 13:23 | PC.NURSE ---
BRI pulled at bedside assess patient. Verbal order to move patient off sips and chips and to clear liquids. pulled BRI out. patient tolerated well.
--- NOTE | 2020-07-27 15:55 | PC.SOCIAL ---
IMM Updated Page 2 of IMM updated and given to patient. Initialed, dated, and timed and placed back in chart.
--- NOTE | 2020-07-27 16:48 | P.PN_ITS ---
Subjective Subjective: Interval history: Patient had bowel movements, denies any nausea or vomiting after the NG tube was clamped yesterday, CONNIE drain output is serosanguineous Vitals/I&O/Wt Last Vital Signs Temp 97.6 F 07/27/20 08:00 Pulse 112 H 07/27/20 16:00 Resp 24 H 07/27/20 16:00 BP 120/64 07/27/20 16:00 Pulse Ox 96 07/27/20 16:00 07/27/20 07/27/20 07/27/20 06:59 14:59 22:59 Intake Total 300 / 1670 677 / 677 Output Total 450 / 2370 50 / 50 Balance -150 / -700 627 / 627 Weight last 48 hrs Weight 148 lb 11.2 oz Weight 150 lb 1.6 oz Physical Exam Narrative: EXAM NARRATIVE: Abdomen: Soft, minimally distended, minimally t teetee, incision clean dry and intact, CONNIE drain output is serosanguineous Urinary Catheter Management^: Bobo: Cath Placed During This Visit: yes Reason for Continuing Indwelling Catheter: Accurate Measurement of Urinary Output in Critically Ill Patients Urinary Catheter Date of Insertion: 07/26/20 Urinary Catheter Time of Insertion: 13:00 Data : 07/27/20 03:52 07/27/20 03:52 Micro: Microbiology 07/22/20 06:20 Blood Culture - Preliminary Blood Corynebacterium species 07/27/20 09:26 Blood Culture - Preliminary Blood SPECIMEN COLLECTED 07/27/20 09:21 Blood Culture - Preliminary Blood SPECIMEN COLLECTED A&P Assessment and plan (1) S/P laparoscopy: Status post laparoscopic repair of duodenal perforation Upper GI did not any evidence of leak DC NG tube, start clear liquid diet Continue IV vancomycin and Zosyn Patient on p.o. Protonix but not sure about absorption since she also has an NG tube in place we will add IV Pepcid twice daily Wean O2 to room air, I-S DC Bobo if no further diuresis is planned Ambulate ad nina. Lovenox /SCD for DVT prophylaxis Status: Acute Attestations Medical Necessity Statement*: Status post repair of duodenal perforation requiring continued inpatient stay to ensure resolution of ileus Coding Level of Care Code Acute Environmental Service Aide for Chg Fwd Diagnoses S/P laparoscopy Z98.890
[2020-07-28] VITALS (24 sets, daily range): BP systolic 89–115; BP diastolic 46–73; PULSE 92–114; RESP 13–27; TEMP 36.7–37.1; O2SAT 94–98; BMI 26.4
[2020-07-28] MEDS: vancomycin 1,000 MG in sodium chloride 0.9% 250 ML 200 MG IV (02:12)
[2020-07-28] MEDS: ondansetron 2 mg/ML SDV 2 mL 4 MG IVP (02:40)
[2020-07-28] MEDS: piperacillin-tazobactam 3.375 GM in sodium chloride 0.9% (plus) 50 ML IV ×4 (04:04→23:46)
[2020-07-28] MEDS: morphine 4 mg/mL SDV 1 mL 2 MG IVP (05:45)
[2020-07-28 06:00] LABS: Basophils % 0.3 %; Eosinophils # 0.2 10^3/uL (0.0-0.8); Eosinophils % 2.4 %; Hematocrit 33.4 % (37.0-47.0); Lymphocytes % 19.8 %; Mean Corpuscular HGB Conc 32.9 g/dL (30.0-36.0); Mean Corpuscular Hemoglobin 31.7 pg (28.0-34.0); Mean Corpuscular Volume 96.3 fL (81-99); Mean Platelet Volume 10.1 fL (7.4-10.4); Monocytes # 0.9 10^3/uL (0.2-0.9); Monocytes % 8.4 %; Neutrophils # 6.84 10^3/uL (1.8-7.7); Nucleated Red Blood Cells # 0.1 /100WBC; Nucleated Red Blood Cells % 0.6 %; Platelet Count 375 10^3/cmm (130-400); Red Blood Count 3.47 10^6/uL (4.1-5.3); Red Cell Distribution Width 17.7 % (12.1-15.1); White Blood Count 10.1 10^3/uL (4.0-10.0)
[2020-07-28 06:22] LABS: Albumin Level 2.1 g/dL (3.5-5.2); Anion Gap 16.5 (5-19); Blood Urea Nitrogen 21 mg/dL (8-23); Calcium 7.8 mg/dL (8.5-10.5); Carbon Dioxide 18 mmol/L (22-29); Chloride 107 mmol/L (98-107); Glomerular Filtration Rate 35.3 mL/min (90-130); Glucose 126 mg/dL (65-115); Phosphorus 3.4 mg/dL (2.5-4.5); Potassium 3.5 mmol/L (3.5-5.1); Sodium 138 mmol/L (136-145)
[2020-07-28 06:23] LABS: Magnesium 1.8 mg/dL (1.7-2.3)
[2020-07-28 06:27] LABS: Alanine Aminotransferase 22 U/L (0-33); Albumin Level 2.1 g/dL (3.5-5.2); Alkaline Phosphatase 174 IU/L (35-105); Anion Gap 16.3 (5-19); Aspartate Amino Transferase 38 U/L (0-32); Blood Urea Nitrogen 21 mg/dL (8-23); Calcium 7.9 mg/dL (8.5-10.5); Carbon Dioxide 18 mmol/L (22-29); Chloride 109 mmol/L (98-107); Glomerular Filtration Rate 38.2 mL/min (90-130); Glucose 133 mg/dL (65-115); Osmolality Calculated 295 mOsm/kg (285-295); Potassium 3.3 mmol/L (3.5-5.1); Sodium 140 mmol/L (136-145); Total Bilirubin 0.5 mg/dL (0.15-1.2); Total Protein 5.1 g/dL (6.6-8.7)
[2020-07-28] MEDS: enoxaparin 40 mg/0.4 mL Syringe SUBCUT (08:40)
--- NOTE | 2020-07-28 08:41 | PC.CHAP ---
Pastoral Care Encounter/Spiritual Assessment Type of Contact [] Declined senior safety management consultant visit [] Patient/Family/Request visit [] Outpatient visit [] Follow-up visit [] Physician referral [] Code/Alert [] Routine visit [] Staff referral [] Actively dying [] Patient sleeping [] Family support [] [] Out of room [] Palliative care [] [] Receiving care in room [] Pre-surgical visit [] Trauma [] Long length of stay [x] ICU visit [] Other: Relational/Emotional Strength [] Patient feels connected with others/family/visitors/staff [] Distress [] Loneliness/isolation [] Abandonment Spirituality of Patient [] Person of Audrey [] Attends Denominational of their Audrey [] Believes in Prayer [] Reads Bible or Holiness materials [] There are Spiritual issues to be addressed Pharmacist Technician Interventions [x] Prayer [] Active listening [] Non-anxious presence [] Spiritual/emotional support [] Crisis/trauma care [] Spiritual counseling [] Bereavement support [] Provided bereavement packet [] Provided Bible/devotional materials [] Provided toy/stuffed animal, coloring book to patient or family member [] Provided Communion [] Anointing/Juliette [] Salvation [x] Completed spiritual assessment [] Other: Impact on Illness or Injury [] Angry [] Fearful [] Anxious [] Often cries [] Exhaustion [] Unable to work [] Unable to attend episcopal [] Unable to walk/stand [] Unable to read [] Unable to drive [] Unable to eat/drink [] Unable to sleep [] Unable to be with family [] Patient intubated [] Other: Summary Time spent with patient
[2020-07-28] MEDS: pantoprazole DR 40 mg Tablet PO ×2 (09:45→17:20)
--- NOTE | 2020-07-28 14:38 | P.PN_ITS ---
Subjective Subjective: Interval history: Patient overall looks a lot better, no nausea or vomiting, tolerating clear liquid diet, had bowel movements, ambulating Vitals/I&O/Wt Last Vital Signs Temp 98.0 F 07/28/20 09:00 Pulse 101 H 07/28/20 14:00 Resp 18 07/28/20 14:00 BP 104/58 07/28/20 14:00 Pulse Ox 98 07/28/20 14:00 07/27/20 07/28/20 07/28/20 22:59 06:59 14:59 Intake Total 1075 / 2528 776 / 2528 686 / 686 Output Total 350 / 850 450 / 850 Balance 725 / 1678 326 / 1678 686 / 686 Weight last 48 hrs Weight 158 lb 11.2 oz Weight 148 lb 11.2 oz Physical Exam Narrative: EXAM NARRATIVE: Abdomen: Soft, nondistended, minimally tender, incision clean dry and intact, CONNIE drain output serosanguineous Urinary Catheter Management^: Bobo: Cath Placed During This Visit: yes Reason for Continuing Indwelling Catheter: Accurate Measurement of Urinary Output in Critically Ill Patients Urinary Catheter Date of Insertion: 07/26/20 Urinary Catheter Time of Insertion: 13:00 Data : 07/28/20 05:02 07/28/20 05:02 Micro: Microbiology 07/27/20 09:26 Blood Culture - Preliminary Blood NEGATIVE TO DATE 07/27/20 09:21 Blood Culture - Preliminary Blood NEGATIVE TO DATE 07/22/20 16:42 Blood Culture - Final Blood NO GROWTH AFTER 5 DAYS 07/22/20 06:20 Blood Culture - Preliminary Blood Corynebacterium species A&P Assessment and plan (1) S/P laparoscopy: Status post laparoscopic repair of duodenal perforation Upper GI did not any evidence of leak Advance to full liquid diet Continue IV vancomycin and Zosyn Patient on p.o. Protonix but not sure about absorption since she also has an NG tube in place we will add IV Pepcid twice daily I-S DC Bobo if no further diuresis is planned Ambulate ad nina. Lovenox /SCD for DVT prophylaxis Hopefully patient can go home in the next 24 to 48 hours from a surgical haley dpoint Status: Acute Attestations Medical Necessity Statement*: Status post repair of duodenal perforation doing well Coding Level of Care Code Acute Spring Former Machine for Chg Fwd Diagnoses S/P laparoscopy Z98.890
--- NOTE | 2020-07-28 15:51 | PM.PN ---
Subjective Subjective: Interval history: Doing okay. Tolerating current diet. No nausea or vomiting. No uncontrolled abdominal pain. No fever or chills. Reports bilateral swelling in the upper extremities. No redness Medications: Reviewed: Yes Medication Review Details: Generic Name Dose Route Start Last Admin Trade Name Freq PRN Reason Stop Dose Admin Enoxaparin Sodium 40 mg 07/23/20 08:30 07/28/20 08:40 Enoxaparin 40 Mg /0.4 Ml Syringe SUBCUT 40 mg Q24H ANTONIETA Administration Ondansetron HCl 4 mg 07/22/20 10:36 07/28/20 02:40 Ondansetron 2 Mg /Ml Sdv 2 Ml IVP 4 mg Q6H PRN Administration NAUSEA AND VOMITI NG Pantoprazole Sodiu m 40 mg 07/24/20 18:00 07/28/20 09:[address] 40 Mg Tablet PO 40 mg BID ANTONIETA Administration Vitals/I&O/Wt Last Vital Signs Temp 98.0 F 07/28/20 09:00 Pulse 101 H 07/28/20 14:00 Resp 18 07/28/20 14:00 BP 104/58 07/28/20 14:00 Pulse Ox 98 07/28/20 14:00 07/28/20 07/28/20 07/28/20 06:59 14:59 22:59 Intake Total 776 / 2528 686 / 686 Output Total 450 / 850 Balance 326 / 1678 686 / 686 Weight last 48 hrs Weight 71.985 kg Weight 67.449 kg Physical Exam Narrative: EXAM NARRATIVE: Awake alert oriented. No acute distress. Mood and affect are appropriate. Responses are adequate. Skin warm and dry. Moist extremities. Neck supple. No JVD Very minimal bilateral crackles, much better than yesterday. No respiratory distress. Heart S1, S2, regular tachycardia. Abdomen soft, nontender, slightly distended, bowel sounds are weak. Extremities no calf tenderness or peripheral cyanosis. Normal capillary refill. There is bilateral pitting edema in the upper extremities 2+. No hyperemia. Also has 1+ edema in the lower extremities symmetrically. Urinary Catheter Management^: Bobo: Cath Placed During This Visit: yes Reason for Continuing Indwelling Catheter: Accurate Measurement of Urinary Output in Critically Ill Patients Urinary Catheter Date of Insertion: 07/26/20 Urinary Catheter Time of Insertion: 13:00 Data : 07/28/20 05:02 07/28/20 05:02 Micro: Microbiology 07/27/20 09:26 Blood Culture - Preliminary Blood NEGATIVE TO DATE 07/27/20 09:21 Blood Culture - Preliminary Blood NEGATIVE TO DATE 07/22/20 16:42 Blood Culture - Final Blood NO GROWTH AFTER 5 DAYS 07/22/20 06:20 Blood Culture - Preliminary Blood Corynebacterium species A&P Assessment and plan (1) Perforated duodenal ulcer: Acute peritonitis present on initial exam Postoperative day #2 status post diagnostic laparoscopy, repair of duodenal perforation with Alexander patch Continue IV Zosyn and vancomycin Blood cultures negative to date Change Protonix to p.o. Gastrografin study today demonstrated no leak Appreciate surgical consultation Status: Resolved (2) Free intraperitoneal air: Secondary to above. Resolved Status: Resolved (3) COPD (chronic obstructive pulmonary disease): Albuterol and Atrovent per inhalation as needed Status: Acute (4) Chronic back pain: Pain control for ulcer should be sufficient Status: Inactive Additional A&P Information (1) Perforated duodenal ulcer: Acute peritonitis present on initial exam Postoperative day #2 status post diagnostic laparoscopy, repair of duodenal perforation with Alexander patch Continue IV Zosyn and vancomycin Blood cultures negative to date Change Protonix to p.o. Gastrografin study today demonstrated no leak Appreciate surgical consultation Status: Resolved (2) Free intraperitoneal air: Secondary to above. Resolved Status: Acute (3) COPD (chronic obstructive pulmonary disease): Albuterol and Atrovent per inhalation as needed Status: Acute (4) Chronic back pain: Pain control for ulcer should be sufficient Status: Inactive Additional A&P Information Full code SCDs for DVT prophylaxis. Lovenox for DVT prophylaxis 07/24 clear liquid diet started. Continue on IV antibiotics for peritonitis. Still tachycardic. When significant clinical improvement occurs consider transfer to second floor. [place] Perforated duodenal ulcer. S/p laparoscopy and repair or perforation with Alexander patch. Doing okay after the surgery. Continue pain management. Diet is being advanced by Dr. Pizarro. Gram-negative bacteremia. Probably contamination. New cultures are negative. Continue Zosyn. Vancomycin is discontinued. Moderate degree protein calorie malnutrition. Tolerating diet well. Suspected fluid overload. IV fluids are discontinued. Resolved. Close monitoring. Hypokalemia. Replace and monitor. Mild acute kidney injury. Continue oral hydration. Will recheck in the morning. If there is no improvement we will consider additional testing. Tachycardia. Improving. Probably related to above. Continue Lovenox for DVT prophylaxis. The plan of care was discussed with the patient. She verbalized understanding and agreement. Discussed with Dr. Donaldson and Dr. Pizarro yesterday. Attestations Medical Necessity Statement*: The patient still requires inpatient hospitalization. Recovering from recent surgery. Coding Level of Care Code Acute Financial Reporting Analyst for [facility] Diagnoses Perforated duodenal ulcer K26.5 Free intraperitoneal air K66.8 COPD (chronic obstructive pulmonary disease) J44.9 Chronic back pain M54.9; G89.29
[2020-07-28 16:56] LABS: Vancomycin Trough 41.1 ug/mL (10-15)
[2020-07-28] MEDS: potassium chloride ER 20 mEq Tablet PO (17:20)
[2020-07-29] VITALS (11 sets, daily range): BP systolic 93–103; BP diastolic 46–63; PULSE 102–111; RESP 19–31; TEMP 37.1; O2SAT 94–99
[2020-07-29] MEDS: ondansetron 2 mg/ML SDV 2 mL 4 MG IVP (00:53)
[2020-07-29 05:28] LABS: Basophils % 0.2 %; Eosinophils # 0.2 10^3/uL (0.0-0.8); Eosinophils % 1.5 %; Hematocrit 32.4 % (37.0-47.0); Hemoglobin 10.5 g/dL (11.5-15.3); Lymphocytes # 1.3 10^3/uL (0.8-4.8); Lymphocytes % 10.9 %; Mean Corpuscular HGB Conc 32.4 g/dL (30.0-36.0); Mean Corpuscular Hemoglobin 31.5 pg (28.0-34.0); Mean Corpuscular Volume 97.3 fL (81-99); Mean Platelet Volume 10.4 fL (7.4-10.4); Monocytes # 0.8 10^3/uL (0.2-0.9); Monocytes % 6.7 %; Neutrophils # 9.75 10^3/uL (1.8-7.7); Nucleated Red Blood Cells # 0.1 /100WBC; Nucleated Red Blood Cells % 0.4 %; Platelet Count 336 10^3/cmm (130-400); Red Blood Count 3.33 10^6/uL (4.1-5.3); Red Cell Distribution Width 17.5 % (12.1-15.1); White Blood Count 12.2 10^3/uL (4.0-10.0)
[2020-07-29 05:52] LABS: Magnesium 1.8 mg/dL (1.7-2.3)
[2020-07-29 05:53] LABS: Albumin Level 2.3 g/dL (3.5-5.2); Anion Gap 16.3 (5-19); Blood Urea Nitrogen 20 mg/dL (8-23); Calcium 7.8 mg/dL (8.5-10.5); Carbon Dioxide 17 mmol/L (22-29); Chloride 107 mmol/L (98-107); Glomerular Filtration Rate 28.6 mL/min (90-130); Glucose 128 mg/dL (65-115); Phosphorus 3.5 mg/dL (2.5-4.5); Potassium 3.3 mmol/L (3.5-5.1); Sodium 137 mmol/L (136-145)
[2020-07-29 05:54] LABS: Alanine Aminotransferase 20 U/L (0-33); Alkaline Phosphatase 148 IU/L (35-105); Anion Gap 16.2 (5-19); Aspartate Amino Transferase 28 U/L (0-32); Blood Urea Nitrogen 20 mg/dL (8-23); Calcium 7.8 mg/dL (8.5-10.5); Carbon Dioxide 17 mmol/L (22-29); Chloride 108 mmol/L (98-107); Globulin 3.3 g/dL (1.3-4.6); Glomerular Filtration Rate 28.6 mL/min (90-130); Glucose 131 mg/dL (65-115); Osmolality Calculated 290 mOsm/kg (285-295); Potassium 3.2 mmol/L (3.5-5.1); Sodium 138 mmol/L (136-145); Total Bilirubin 0.6 mg/dL (0.15-1.2); Total Protein 5.3 g/dL (6.6-8.7)
[2020-07-29] MEDS: pantoprazole DR 40 mg Tablet PO ×2 (08:34→18:39)
[2020-07-29] MEDS: enoxaparin 40 mg/0.4 mL Syringe SUBCUT (08:34)
[2020-07-29] MEDS: piperacillin-tazobactam 3.375 GM in sodium chloride 0.9% (plus) 50 ML IV (08:35)
--- NOTE | 2020-07-29 09:06 | US_ITS ---
WS: [id number] RENAL ULTRASOUND HISTORY: RICH COMPARISON: None available. TECHNIQUE: 2-D and color Doppler imaging of the kidney submitted. Right kidney: 9.3 cm x 5.6 cm x 4.4 cm. Normal echogenicity with no hydronephrosis or mass. Left kidney: 9.8 cm x 5.0 cm x 4.9 cm. Normal echogenicity with no hydronephrosis or mass. Aorta: Mild atherosclerosis. No aneurysm. Urinary Bladder: Nondistended bladder. There is a Bobo catheter present. Small LEFT pleural effusion. US/US renal BI* [id number] IMPRESSION: 1. Normal renal ultrasound. 2. Small LEFT pleural effusion.
[2020-07-29] MEDS: sodium chloride 0.9% 1,000 ML 100 ML IV (10:29)
--- NOTE | 2020-07-29 10:49 | PC.SOCIAL ---
IMM Updated Updated pt on Pg 2 IMM. No questions voiced. Provided pt a copy. Signed, dated, & timed copy in chart.
[2020-07-29] MEDS: potassium chloride premix 100 ML 50 MEQ IV (14:58)
--- NOTE | 2020-07-29 15:06 | P.PN_ITS ---
Subjective Subjective: Interval history: Patient doing well denies any nausea or vomiting, tolerating her diet, had bowel movements Vitals/I&O/Wt Last Vital Signs Temp 98.8 F 07/29/20 05:48 Pulse 107 H 07/29/20 12:00 Resp 23 H 07/29/20 12:00 BP 93/63 07/29/20 08:00 Pulse Ox 94 07/29/20 04:00 07/29/20 07/29/20 07/29/20 06:59 14:59 22:59 Intake Total 270 / 1456 410 / 410 Output Total 300 / 916 Balance -30 / 540 410 / 410 Weight last 48 hrs Weight 158 lb 4.8 oz Weight 158 lb 11.2 oz Physical Exam Narrative: EXAM NARRATIVE: Abdomen: Soft, nondistended, minimally tender, incision clean dry intact, CONNIE drain output was serous which was DC'd today Urinary Catheter Management^: Bobo: Cath Placed During This Visit: yes Reason for Continuing Indwelling Catheter: Accurate Measurement of Urinary Output in Critically Ill Patients Urinary Catheter Date of Insertion: 07/26/20 Urinary Catheter Time of Insertion: 13:00 Data : 07/29/20 04:45 07/29/20 04:45 Micro: Microbiology 07/27/20 09:26 Blood Culture - Preliminary Blood NEGATIVE TO DATE 07/27/20 09:21 Blood Culture - Preliminary Blood NEGATIVE TO DATE A&P Assessment and plan (1) S/P laparoscopy: Status post laparoscopic repair of duodenal perforation Upper GI did not any evidence of leak Creatinine elevated to 1.8, requiring further work-up Tolerating GI soft diet Continue IV Zosyn, WBC increased from 10.1-12.2 P.o. Protonix 40 mg twice daily, DC Pepcid I-S DC Bobo if no further diuresis is planned Ambulate ad nina. Heparin/SCD for DVT prophylaxis Hopefully patient can go home in the next 24 to 48 hours from a surgical standpoint Status: Acute Attestations Medical Necessity Statement*: Status post repair of duodenal perforation with elevated creatinine requiring continued inpatient stay Coding Level of Care Code Acute Physical Medicine Physician for Chg Fwd Diagnoses S/P laparoscopy Z98.890
--- NOTE | 2020-07-29 16:20 | PM.PN ---
Subjective Subjective: Interval history: No significant changes. No nausea or vomiting. No abdominal pain but there is still persistent bloating. No fever or chills. Medications: Reviewed: Yes Medication Review Details: Generic Name Dose Route Start Last Admin Trade Name Angel PRN Reason Stop Dose Admin Sodium Chloride 1,000 mls @ 100 m ls/hr 07/29/20 09:15 07/29/20 10:29 Sodium Chloride 0.9% IV 100 mls/hr .Q10H ANTONIETA Administration Potassium Chloride 100 mls @ 50 mls/ hr 07/29/20 15:00 07/29/20 14:58 [place] Premix IV 07/29/20 16:59 50 mls/hr ONCE ONE Administration Ondansetron HCl 4 mg 07/22/20 10:36 07/29/20 00:53 Ondansetron 2 Mg /Ml Sdv 2 Ml IVP 4 mg Q6H PRN Administration NAUSEA AND VOMITI NG Pantoprazole Sodiu m 40 mg 07/24/20 18:00 07/29/20 08:[address] 40 Mg Tablet PO 40 mg BID ANTONIETA Administration Vitals/I&O/Wt Last Vital Signs Temp 98.8 F 07/29/20 05:48 Pulse 107 H 07/29/20 12:00 Resp 23 H 07/29/20 12:00 BP 93/63 07/29/20 08:00 Pulse Ox 94 07/29/20 04:00 07/29/20 07/29/20 07/29/20 06:59 14:59 22:59 Intake Total 270 / 1456 410 / 410 Output Total 300 / 916 Balance -30 / 540 410 / 410 Weight last 48 hrs Weight 71.804 kg Weight 71.985 kg Physical Exam Narrative: EXAM NARRATIVE: Awake alert oriented. No acute distress. Mood and affect are appropriate. Responses are adequate. Skin warm and dry. Moist extremities. Neck supple. No JVD Very minimal bilateral crackles, much better than yesterday. No respiratory distress. Heart S1, S2, regular tachycardia. Abdomen soft, nontender, slightly distended, bowel sounds are weak. Extremities no calf tenderness or peripheral cyanosis. Normal capillary refill. There is bilateral pitting edema in the upper extremities 2+. No hyperemia. Also has 1+ edema in the lower extremities symmetrically. Urinary Catheter Management^: Bobo: Cath Placed During This Visit: yes Reason for Continuing Indwelling Catheter: Accurate Measurement of Urinary Output in Critically Ill Patients Urinary Catheter Date of Insertion: 07/26/20 Urinary Catheter Time of Insertion: 13:00 Data : 07/29/20 04:45 07/29/20 04:45 A&P Assessment and plan (1) Perforated duodenal ulcer: Acute peritonitis present on initial exam Postoperative day #2 status post diagnostic laparoscopy, repair of duodenal perforation with Alexander patch Continue IV Zosyn and vancomycin Blood cultures negative to date Change Protonix to p.o. Gastrografin study today demonstrated no leak Appreciate surgical consultation Status: Resolved (2) Free intraperitoneal air: Secondary to above. Resolved Status: Resolved (3) COPD (chronic obstructive pulmonary disease): Albuterol and Atrovent per inhalation as needed Status: Acute (4) Chronic back pain: Pain control for ulcer should be sufficient Status: Inactive Additional A&P Information (1) Perforated duodenal ulcer: Acute peritonitis present on initial exam Postoperative day #2 status post diagnostic laparoscopy, repair of duodenal perforation with Alexander patch Continue IV Zosyn and vancomycin Blood cultures negative to date Change Protonix to p.o. Gastrografin study today demonstrated no leak Appreciate surgical consultation Status: Resolved (2) Free intraperitoneal air: Secondary to above. Resolved Status: Acute (3) COPD (chronic obstructive pulmonary disease): Albuterol and Atrovent per inhalation as needed Status: Acute (4) Chronic back pain: Pain control for ulcer should be sufficient Status: Inactive Additional A&P Information Full code SCDs for DVT prophylaxis. Lovenox for DVT prophylaxis 07/24 clear liquid diet started. Continue on IV antibiotics for peritonitis. Still tachycardic. When significant clinical improvement occurs consider transfer to second floor. [place] Perforated duodenal ulcer. S/p laparoscopy and repair or perforation with Alexander patch. Doing okay after the surgery. Continue pain management. Diet per Dr. Pizarro. Gram-negative bacteremia. Probably contamination. New cultures are negative. Continue Zosyn. Vancomycin is discontinued. Moderate degree protein calorie malnutrition. Diet advancement per Dr. Pizarro. Suspected fluid overload. Resolved Hypokalemia. Replace and monitor. Acute kidney injury. Worsened creatinine. Could be secondary to vancomycin nephrotoxic effect. Will order renal ultrasound and urine eosinophils. We will hydrate and recheck renal function tomorrow.. Tachycardia. Improving. Probably related to above. DVT prophylaxis. Switch to heparin due to renal function. The plan of care was discussed with the patient. She verbalized understanding and agreement. Discussed with Dr. Pizarro today. Attestations Medical Necessity Statement*: Recovering from her surgery. Still requires IV fluids and close monitoring of the renal function. 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
--- NOTE | 2020-07-29 17:01 | XRR_ITS ---
PROCEDURE INFORMATION: Exam: XR Chest, 1 View Exam date and time: 07/29/2020 5:20 PM Age: 60 years old Clinical indication: Shortness of breath; Additional info: SOB TECHNIQUE: Imaging protocol: XR of the chest Views: 1 view. COMPARISON: CR XR chest 1V portable [id number] 07/22/2020 6:47 AM FINDINGS: Lungs: Atelectasis or infiltrate right lower lung. Pleural space: Unremarkable. No pleural effusion. No pneumothorax. Heart/Mediastinum: Stable cardiomediastinal silhouette. Diaphragm: Elevation of right hemidiaphragm. Bones/joints: Similar appearance of chondroid lesion at the proximal left humerus. Other findings: Overall diffuse interstitial accentuation or thickening on a chronic basis. XR/XR chest 1V portable [id number] IMPRESSION: 1. Persistent appearance of diffuse coarsening or chronic thickening of the interstitium. 2. Elevation right hemidiaphragm with more focal opacity of right lower lung which may indicate underlying interstitial infiltrate and/or atelectasis.
--- NOTE | 2020-07-29 17:03 | PC.NURSE ---
patient reports Sob upon auscultation pronounced crackles heard in lower and mid right lobes Dr wen notified instructions to obtain chest xray and bnp
[2020-07-29 18:24] LABS: NT Pro B Type Natriuretic Pept 5304 pg/mL (0-125)
[2020-07-29] MEDS: piperacillin-tazobactam 2.25 GM in sodium chloride 0.9% (plus) 50 ML IV (18:36)
[2020-07-29] MEDS: heparin 5,000 unit/mL INJ 1 mL 5000 UNIT SUBCUT ×2 (18:38→23:52)
[2020-07-30] VITALS (9 sets, daily range): BP systolic 97–107; BP diastolic 47–65; PULSE 97–108; RESP 14–36; TEMP 36.4–36.9; O2SAT 98–100
--- NOTE | 2020-07-30 03:33 | PC.NURSE ---
Exertional SOB Assisted patient up to BSC. Upon getting back to bed pt had some exertional shortness of breath with brief tachypnea shallow breathing. O2 saturations remained 98% on room air. Crackles and wheezes noted earlier in shift. Once back to bed patient breathing even and non-labored. Will continue to monitor.
[2020-07-30 04:33] LABS: Eosinophil Urine No Eosinophils Seen
--- NOTE | 2020-07-30 05:00 | USCV_ITS ---
Judy Aguiar Age: 60 Gender: F : 1960 Exam Date: 07/30/2020 05:35 Ordering Phys: Harvinder Swanson MD Technologist: Exam [place] [facility] [place] Indication: CHF BP: 114 / 55 HR: 102 Rhythm: Sinus Technical Quality: Technically difficult studyDS MEASUREMENTS (Male / Female) Normal Values 2D ECHO LV Diastolic Diameter PLAX 4.4 cm 4.2 - 5.9 / 3.9 - 5.3 cm LV Systolic Diameter PLAX 2.5 cm LV Chamber Size 2.9 cm IVS Diastolic Thickness 0.7 cm 0.6 - 1.0 / 0.6 - 0.9 cm IVS Systolic Thickness 1.1 cm LVPW Diastolic Thickness 1.0 cm 0.6 - 1.0 / 0.6 - 0.9 cm LVPW Systolic Thickness 1.3 cm RV Chamber Size 2.5 cm LVOT Diameter 2.0 cm LV Ejection Fraction 2D Teich 73.7 % LV Ejection Fraction MOD 2C 56.0 % LV Ejection Fraction 2C AL 54.6 % LA Diameter 3.0 cm LA Width 3.1 cm LA Height 3.9 cm RA Width 3.0 cm RA Height 3.2 cm Aorta at Sinotubular Diameter 2.4 cm M-MODE LV Diastolic Diameter MM 4.3 cm 4.2 - 5.9 / 3.9 - 5.3 cm LV Systolic Diameter MM 2.7 cm LV Ejection Fraction MM Teich 68.0 % IVS Diastolic Thickness MM 0.7 cm 0.6 - 1.0 / 0.6 - 0.9 cm IVS Systolic Thickness MM 1.4 cm LVPW Diastolic Thickness MM 0.9 cm 0.6 - 1.0 / 0.6 - 0.9 cm LVPW Systolic Thickness MM 1.0 cm RV Diastolic Diameter MM 0.9 cm Aortic Annulus Diameter 2.6 cm LA Ao Ratio MM 1.1 MV E Point Septal Separation 0.3 cm DOPPLER AV Peak Velocity 209.8 cm/s LVOT Peak Velocity 122.2 cm/s AV Area Cont Eq vti 1.8 cm squared AV Area Cont Eq pk 1.8 cm squared MV Area PHT 4.1 cm squared Mitral E to A Ratio 1.0 MV E' Velocity 85.0 cm/s Mitral E to MV E' Ratio 16.8 Mitral E to LV E' Lateral Ratio 17.9 Mitral E to LV E' Septal Ratio 15.8 TR Peak Velocity 314.4 cm/s TR Peak Gradient 39.5 mmHg TR Mean Velocity 246.1 cm/s TR Mean Gradient 26.5 mmHg TR Velocity Time Integral 87.2 cm TV Peak E Velocity 56.0 cm/s Right Atrial Pressure 8.0 mmHg Pulmonary Artery Systolic Pressu 47.5 mmHg PV Peak Velocity 96.0 cm/s RV Acceleration Time 0.2 s RV Ejection Time 0.3 s RV AcT/ET 0.5 FINDINGS Left Ventricle Normal left ventricular size and wall thickness. Limited visualization of left ventricle. Grossly LV systolic function is normal. Regional wall motion abnormalities cannot be assessed because of limited visualization. Normal left ventricular wall thickness. Normal diastolic filling pattern. Right Ventricle The right ventricle is normal in size and function. Right Atrium The right atrium is normal in size. Left Atrium The left atrium is normal in size. Mitral Valve Possible mitral valve prolapse is noted. There is mild to moderate eccentric mitral regurgitation. No mitral stenosis noted. Aortic Valve Structurally normal aortic valve. There is mild aortic stenosis gradient of 10 mmHg. There is no aortic regurgitation. Tricuspid Valve Structurally normal tricuspid valve without significant stenosis or regurgitation. Insufficient TR jet to calculate RVSP. RA pressure is 5 to 10 mmHg. Pulmonic Valve Structurally normal pulmonic valve without significant stenosis. There is no pulmonic regurgitation. Pericardium Normal pericardium without effusion. Aorta Normal ascending aorta dimension. CONCLUSIONS This is technically difficult study with limited visualization of cardiac structures. LV systolic function is grossly normal. Regional wall motion abnormalities cannot be assessed because of limited visualization. Diastolic function is normal. Possible mitral valve prolapse with mild to moderate eccentric mitral regurgitation is noted. No mitral stenosis is present. Mild aortic stenosis is present. Insufficient TR jet to calculate RVSP. RA pressure is 5 to 10 mmHg. No comparison studies are available. Ky Stapleton MD (Electronically Signed) Final Date: 30 July 2020 12:30 S
[2020-07-30 06:08] LABS: Basophils % 0.4 %; Eosinophils # 0.3 10^3/uL (0.0-0.8); Eosinophils % 2.5 %; Hematocrit 32.2 % (37.0-47.0); Hemoglobin 10.6 g/dL (11.5-15.3); Lymphocytes # 1.8 10^3/uL (0.8-4.8); Lymphocytes % 16.2 %; Mean Corpuscular HGB Conc 32.9 g/dL (30.0-36.0); Mean Corpuscular Hemoglobin 31.4 pg (28.0-34.0); Mean Corpuscular Volume 95.3 fL (81-99); Mean Platelet Volume 10.9 fL (7.4-10.4); Monocytes # 0.7 10^3/uL (0.2-0.9); Monocytes % 6.4 %; Neutrophils # 7.95 10^3/uL (1.8-7.7); Neutrophils % 73.9 %; Nucleated Red Blood Cells # 0.1 /100WBC; Nucleated Red Blood Cells % 0.6 %; Platelet Count 339 10^3/cmm (130-400); Red Blood Count 3.38 10^6/uL (4.1-5.3); Red Cell Distribution Width 17.6 % (12.1-15.1); White Blood Count 10.8 10^3/uL (4.0-10.0)
[2020-07-30 06:36] LABS: Anion Gap 17.5 (5-19); Blood Urea Nitrogen 18 mg/dL (8-23); Carbon Dioxide 17 mmol/L (22-29); Chloride 105 mmol/L (98-107); Glomerular Filtration Rate 32.8 mL/min (90-130); Potassium 3.5 mmol/L (3.5-5.1); Sodium 136 mmol/L (136-145)
[2020-07-30 06:37] LABS: Albumin Level 2.2 g/dL (3.5-5.2); Calcium 7.9 mg/dL (8.5-10.5); Glucose 88 mg/dL (65-115); Magnesium 1.9 mg/dL (1.7-2.3); Phosphorus 3.5 mg/dL (2.5-4.5)
[2020-07-30] MEDS: heparin 5,000 unit/mL INJ 1 mL 5000 UNIT SUBCUT ×2 (08:53→16:51)
[2020-07-30] MEDS: pantoprazole DR 40 mg Tablet PO ×2 (08:53→16:51)
[2020-07-30] MEDS: piperacillin-tazobactam 2.25 GM in sodium chloride 0.9% (plus) 50 ML IV ×2 (08:53)
--- NOTE | 2020-07-30 09:02 | PM.PN ---
Subjective Subjective: Interval history: Patient denies any abdominal pain, no nausea or vomiting, tolerating GI soft diet, had large 2 bowel movements last night Vitals/I&O/Wt Last Vital Signs Temp 98.2 F 07/30/20 04:00 Pulse 104 H 07/30/20 08:00 Resp 20 H 07/30/20 08:00 BP 106/53 07/30/20 08:00 Pulse Ox 98 07/30/20 08:00 07/29/20 07/30/20 07/30/20 22:59 06:59 14:59 Intake Total 468.125 / 878.125 0 / 878.125 410 / 410 Output Total 350 / 350 350 / 350 Balance 118.125 / 528.125 0 / 528.125 60 / 60 Weight last 48 hrs Weight 158 lb 1.6 oz Weight 158 lb 4.8 oz Physical Exam Narrative: EXAM NARRATIVE: Abdomen: Soft, nondistended, minimally tender, incision clean dry and intact Urinary Catheter Management^: Bobo: Cath Placed During This Visit: yes Reason for Continuing Indwelling Catheter: Accurate Measurement of Urinary Output in Critically Ill Patients Urinary Catheter Date of Insertion: 07/26/20 Urinary Catheter Time of Insertion: 13:00 Data : 07/30/20 04:10 07/30/20 04:10 A&P Assessment and plan (1) S/P laparoscopy: Status post laparoscopic repair of duodenal perforation Upper GI did not any evidence of leak Creatinine elevated down to 1.6 today, renal ultrasound: Normal Tolerating GI soft diet DC antibiotics since patient has received a week of IV antibiotics P.o. Protonix 40 mg twice daily I-S DC Bobo Ambulate ad nina. Heparin/SCD for DVT prophylaxis Patient can go home from a surgical standpoint with follow-up with Dr. 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
--- NOTE | 2020-07-30 12:18 | P.PN_ITS ---
Subjective Subjective: Interval history: No acute event overnight.Overall she is doing well.Has remained afebrile,she is aturating above 93 % on R.A other vitals are stable. Tolerating diet well. Labs have been reviewed. Medications: Reviewed: Yes Vitals/I&O/Wt Last Vital Signs Temp 98.2 F 07/30/20 04:00 Pulse 104 H 07/30/20 08:00 Resp 20 H 07/30/20 08:00 BP 106/53 07/30/20 08:00 Pulse Ox 98 07/30/20 08:00 07/29/20 07/30/20 07/30/20 22:59 06:59 14:59 Intake Total 468.125 / 878.125 0 / 878.125 172.708 / 172.708 Output Total 350 / 350 650 / 650 Balance 118.125 / 528.125 0 / 528.125 -477.292 / -477.292 Weight last 48 hrs Weight 71.713 kg Weight 71.804 kg Physical Exam HENMT: COMMON NORMALS: normocephalic and atraumatic HEAD & SCALP: normocephalic and atraumatic Resp: COMMON NORMALS: normal respiratory effort and clear to auscultation bilaterally AUSCULTATION: clear to auscultation bilaterally Cardio: COMMON NORMALS: regular rate, regular rhythm, S1 normal heart sound present, S2 normal heart sound present, No gallops present (Cardio), No murmurs present (Cardio), No rub (Cardio) and Peripheral pulses 2+ throughout RATE: regular rate RHYTHM: regular rhythm HEART SOUNDS: S1 normal heart sound present and S2 normal heart sound present PERIPHERAL PULSES: Peripheral pulses 2+ throughout GI: AUSCULTATION: Yes normoactive bowel sounds RECTAL EXAM: deferred OTHER: Soft, nondistended, minimally tender, incision clean dry and intact Extremity: COMMON NORMALS: no clubbing, cyanosis or edema and no pedal edema Urinary Catheter Management^: Bobo: Cath Placed During This Visit: yes, but has since been removed by the nurse Reason for Continuing Indwelling Catheter: Decision to DC Catheter Urinary Catheter Date of Insertion: 07/26/20 Urinary Catheter Time of Insertion: 13:00 Date Urinary Catheter Removed: 07/30/20 Time Urinary Catheter Discontinued: 09:38 Data : 07/30/20 04:10 07/30/20 04:10 A&P Assessment and plan (1) Perforated duodenal ulcer: Acute peritonitis present on initial exam Postoperative day #2 status post diagnostic laparoscopy, repair of duodenal perforation with Alexander patch Continue IV Zosyn and vancomycin Blood cultures negative to date Change Protonix to p.o. Gastrografin study today demonstrated no leak Appreciate surgical consultation Status: Resolved (2) Free intraperitoneal air: Secondary to above. Resolved Status: Resolved (3) COPD (chronic obstructive pulmonary disease): Albuterol and Atrovent per inhalation as needed Status: Acute (4) Chronic back pain: Pain control for ulcer should be sufficient Status: Inactive Additional A&P Information (1) Perforated duodenal ulcer: Acute peritonitis present on initial exam Postoperative day #2 status post diagnostic laparoscopy, repair of duodenal perforation with Alexander patch Continue IV Zosyn and vancomycin Blood cultures negative to date Change Protonix to p.o. Gastrografin study today demonstrated no leak Appreciate surgical consultation Status: Resolved (2) Free intraperitoneal air: Secondary to above. Resolved Status: Acute (3) COPD (chronic obstructive pulmonary disease): Albuterol and Atrovent per inhalation as needed Status: Acute (4) Chronic back pain: Pain control for ulcer should be sufficient Status: Inactive Additional A&P Information Full code SCDs for DVT prophylaxis. Lovenox for DVT prophylaxis 07/24 clear liquid diet started. Continue on IV antibiotics for peritonitis. Still tachycardic. When significant clinical improvement occurs consider transfer to second floor. [place] #Perforated duodenal ulcer. S/p laparoscopy and repair oF perforation with Alexander patch. Doing okay after t he surgery. Continue pain management. Diet per Dr. Pizarro. Pertinent Imaging Studies : Upper G.I Gastrograffin study : No leakage of contrast from the bowel lumen in the upper GI tract . CT abdomen pelvis w con: Moderate to large amount of intraperitoneal free air.Marked mucosal thickening and edema with fluid and adjacent free air near the antrum and duodenal C-loop. Free air source may be a perforated ulcer. #Gram-negative bacteremia. Probably contamination. New cultures are negative. She was on Vanc and zosy.But all the Abx s have been discontinued. #Moderate degree protein calorie malnutrition. Diet advancement per Dr. Pizarro. #Acute kidney injury. Worsened creatinine. Could be secondary to vancomycin nephrotoxic effect. Renal U/S : Normal renal ultrasound. Encourage PO Intake and Continue to monitor BMP. #Suspected Volume overload : 2D Echo was done : LV systolic function is grossly normal.It was a technically difficult study. Hence very much limited in tis scope to comment ON RWMA as well as valvular abnormality. Tachycardia. Improving. Probably related to above. DVT prophylaxis. Switch to heparin due to renal function. The plan of care was discussed with the patient. She verbalized understanding and agreement. Discussed with Dr. Pizarro today. 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
--- NOTE | 2020-07-30 17:07 | PC.NURSE ---
Report given to Naty PRASAD at this time, patient transported by stretcher to [facility] in stable condition, VSS.
[2020-07-31] VITALS: BP 100/64; PULSE 106; RESP 20; TEMP 36.6; O2SAT 99
[2020-07-31] MEDS: heparin 5,000 unit/mL INJ 1 mL 5000 UNIT SUBCUT ×2 (00:45→10:43)
[2020-07-31 04:00] VITALS: BP 100/65; PULSE 106; RESP 24; TEMP 36.3; O2SAT 98
[2020-07-31 06:33] LABS: Blood Urea Nitrogen 18 mg/dL (8-23); Calcium 7.7 mg/dL (8.5-10.5); Carbon Dioxide 17 mmol/L (22-29); Chloride 106 mmol/L (98-107); Glomerular Filtration Rate 35.3 mL/min (90-130); Glucose 89 mg/dL (65-115); Osmolality Calculated 281 mOsm/kg (285-295); Sodium 135 mmol/L (136-145)
[2020-07-31 06:35] LABS: Anion Gap 15.6 (5-19); Potassium 3.6 mmol/L (3.5-5.1)
[2020-07-31 08:00] VITALS: BP 90/52; PULSE 109; RESP 18; TEMP 36.5; O2SAT 96
--- NOTE | 2020-07-31 09:52 | P.DS_ITS ---
Discharge Providers Date of Admission: 07/22/20 13:30 Date of Discharge: July 31, 2020 Attending Provider at Admission: Camilo Garza MD Attending Provider at Discharge: Jayme King MD Primary Care Provider: PERLA Putnam Diagnoses at Discharge Discharge Diagnosis (1) Perforated duodenal ulcer: Status: Resolved (2) Free intraperitoneal air: Status: Resolved (3) COPD (chronic obstructive pulmonary disease): (4) Chronic back pain: Status: Inactive Reason for Visit Reason for Visit: abd pain Hospital Course Hospital Course 60 year old female with pmh of COPD, chronic back pain, GERD, PUD was admitted with c/o of nausea, dry heaves and abdominal pain. This was apparently going on 4 days prior to the admission. on admission she denied any blood in stools or black or tarry stools. Abdominal pain was significantly worsening over the preceding days. Has prior history of ulcer, treated in 2003 with surgery as well as Niesen.she was admitted for the management of perforated duodenal ulcer status post diagnostic laparoscopy, repair of duodenal perforation with Alexander patch.Gastrografin study today demonstrated no leak.she was initially kept on broad spectrum abxs, for Gram-negative bacteremia.Probably contamination.repeat cultures were negative.She was on Vanc and zosy.But all the Abx s were discontinued.She was also on I.V protonix which was later changed to po protonix upon discharge.She also had developed RICH during this hospital stay,possibly combination of vancomycin , dehydration,she was managed was hydration.RICH was resolved on discharge with conservative management. At the time of discharge she was in stable condition.She will follow surgery as outpatient. Pertinent Imaging Studies : Upper G.I Gastrograffin study : No leakage of contrast from the bowel lumen in the upper GI tract . CT abdomen pelvis w con: Moderate to large amount of intraperitoneal free air.Marked mucosal thickening and edema with fluid and adjacent free air near the antrum and duodenal C-loop. Free air source may be a perforated ulcer. 2D Echo : This is technically difficult study with limited visualization of cardiac structures. LV systolic function is grossly normal. Regional wall motion abnormalities cannot be assessed because of limited visualization. Diastolic function is normal. Possible mitral valve prolapse with mild to moderate eccentric mitral regurgitation is noted. No mitral stenosis is present. Mild aortic stenosis is present. Insufficient TR jet to calculate RVSP. RA pressure is 5 to 10 mmHg. No comparison studies are available. US renal BI: Normal renal ultrasound. Physical Exam Const: COMMON NORMALS: patient oriented x3 HENMT: COMMON NORMALS: normocephalic and atraumatic HEAD & SCALP: normocephalic and atraumatic Chest: COMMONS NORMALS: normal inspection of the chest CHEST: Yes Symmetrical chest wall rise Resp: COMMON NORMALS: normal respiratory effort and clear to auscultation bilaterally EFFORT & INSPECTION: Yes symmetric chest movement AUSCULTATION: clear to auscultation bilaterally Cardio: COMMON NORMALS: regular rate, regular rhythm, S1 normal heart sound present, S2 normal heart sound present, No gallops present (Cardio), No murmurs present (Cardio), No rub (Cardio) and Peripheral pulses 2+ throughout RATE: regular rate RHYTHM: regular rhythm HEART SOUNDS: S1 normal heart sound present and S2 normal heart sound present PERIPHERAL PULSES: Peripheral pulses 2+ throughout GI: AUSCULTATION: Yes normoactive bowel sounds RECTAL EXAM: deferred OTHER: Abdomen: Soft, nondistended, minimally tender, incision clean dry and intact Extremity: COMMON NORMALS: no clubbing, cyanosis or edema and no pedal edema Neuro: COMMON NORMALS: patient oriented x3 Urinary Catheter Management^: Bobo: Cath Placed During This Visit: yes, but has since been removed by the nurse Reason for Continuing Indwelling Catheter: Decision to DC Catheter Urinary Catheter Date of Insertion: 07/26/20 Urinary Catheter Time of Insertion: 13:00 Date Urinary Catheter Removed: 07/30/20 Time Urinary Catheter Discontinued: 09:38 Discharge Data Data Completed and Pending: Completed Studies During Hospitalization Category Date Time Status CT abdomen pelvis w con* [id number] Stat Cat Scan 07/22/20 06:46 Completed FL upper GI gastr ografin [id number] Rout ine Exams 07/24/20 08:00 Completed XR chest 1V aj ble [id number] Stat Exams 07/22/20 06:47 Completed XR chest 1V aj ble [id number] Stat Exams 07/29/20 17:01 Completed CV echo complete* [id number] Routine Ultrasound 07/30/20 05:00 Completed US renal BI* [id number] Routine Ultrasound 07/29/20 09:06 Completed Pending at discharge Category Date Time Status ES surgery / GI i mages Routine Exams 07/22/20 09:59 Ordered Blood Culture Sta t Lab 07/27/20 09:26 Results Labs from last 24 hours 07/31/20 05:43 Sodium 135 L Potassium 3.6 Chloride 106 Carbon Dioxide 17 L Anion Gap 15.6 BUN 18 Creatinine 1.5 H GFR Calculation 35.3 L Glucose 89 Calculated Osmolal ity 281 L Calcium 7.7 L Vitals: Last Vital Signs Temp 97.7 F 07/31/20 08:00 Pulse 109 H 07/31/20 08:00 Resp 18 07/31/20 08:00 BP 90/52 07/31/20 08:00 Pulse Ox 96 07/31/20 08:00 Discharge Plan Discharge Patient Disposition: Home Condition: Stable Prescriptions: New Protonix 40 mg tablet,delayed release (DR/EC) 40 mg PO BIDWMEAL 42 Days Qty: 84 RF: 3 hydrocodone-acetaminophen 5-300 mg tablet 1 tab PO Q4H PRN (Reason: pain) Qty: 10 RF: 0 Continued carisoprodol 350 mg tablet 350 mg PO QID PRN (Reason: Spasms) RF: 0 aspirin-sod bicarb-citric acid 324 mg Tablet, Effervescent 324 mg PO DAILY RF: 0 Tylenol 325 mg Capsule 325 mg PO QID PRN (Reason: Pain) RF: 0 Discontinued hydrocodone-acetaminophen 10-325 mg tablet 1 tab PO Q4H PRN (Reason: Pain) RF: 0 omeprazole [Prilosec] 40 mg Capsule,Delayed Release(Dr/Ec) 40 mg PO DAILY RF: 0 Discharge Orders: Discharge Order (Routine); Ordered 07/31/20 Ordered By: Jayme King Referrals: Camilo Garza MD [Physician] - 7-10 days (Please call Monday to make a follow up appointment) Keerthi Olea FNP [Primary Care Provider] - (Please call Monday to make a follow up appointment.) Discharge Diet: GI Soft Patient Instructions: COPD, Pantoprazole (By mouth), Perforated Bowel (GEN), COPD Stoplight Activity Restrictions/Additional Instructions: 1. Up and walking as tolerated. 2. Ok to shower 3. Dry 4. Do not lift more than 10 pounds. 5. Do not operate heavy machinery or drive while using pain medications. 6. Advised to return to ER or contact my office if there are any signs of infection like, increasing pain, fevers, chills, redness or drainage of pus. Discharge Attestations Time Spent in Discharge Care*: less than 30 min Specific Discharge Activities: educating patient, discussing with nurse case management/social workers/dc planners, documenting/other paperwork and evaluating patient/reviewing data Status at Discharge: Cognitive status at discharge: cognitively intact , Behavioral status at discharge: cooperative , Functional status at discharge: independent ambulation Overall status at discharge: patient is back to baseline Quality Metrics Clinical Quality Measures During this hospital stay, did patient experience: None Coding Level of Care Code Acute Cotton Ball Machine Tender for Chg Fwd Diagnoses Perforated duodenal ulcer K26.5 Free intraperitoneal air K66.8 COPD (chronic obstructive pulmonary disease) J44.9 Chronic back pain M54.9; G89.29
[2020-07-31] MEDS: pantoprazole DR 40 mg Tablet PO (10:43)
--- NOTE | 2020-07-31 12:58 | PC.NURSE ---
iv removed from right ac, site was clean and clear with iv catheter intact. all discharge instructions gone over, no questions at this time.
[2020-07-31 13:02] VITALS: BP 90/52; PULSE 109; RESP 18; TEMP 36.5; O2SAT 96
== END 2020-07-31 13:03 | disposition home or self-care (01) | DRG 329 ==
LOC: ER 09:28 → OPS 09:49 → ICU 13:54 → MEDSURG 07-30 17:52
PROVIDERS: Internal Medicine; Surgery; Admitting Provider Surgery; Emergency Provider Family Medicine; PCP Nurse Practitioner Family; Visit Provider Internal Medicine
PROC: 0DU947Z Supplement Duodenum with Autologous Tissue Substitute, Percutaneous Endoscopic Approach (ICD-10-PCS; CPT 49320; principal; 2020-07-22 10:30)
PROC: 0DJ08ZZ Inspection of Upper Intestinal Tract, Via Natural or Artificial Opening Endoscopic (ICD-10-PCS; CPT 43235; 2020-07-22 10:30)
DX: K26.0 Acute duodenal ulcer with hemorrhage (principal); K65.9 Peritonitis, unspecified; E44.0 Moderate protein-calorie malnutrition; N17.9 Acute kidney failure, unspecified; K66.8 Other specified disorders of peritoneum; G89.29 Other chronic pain; M54.9 Dorsalgia, unspecified; J44.9 Chronic obstructive pulmonary disease, unspecified; K21.9 Gastro-esophageal reflux disease without esophagitis; F17.210 Nicotine dependence, cigarettes, uncomplicated; K29.70 Gastritis, unspecified, without bleeding; E87.6 Hypokalemia; Z68.27 Body mass index [BMI] 27.0-27.9, adult; E86.0 Dehydration; I08.0 Rheumatic disorders of both mitral and aortic valves
CPT/HCPCS: 12345; 36415; 36600; 51702; 71045; 74177; 74240; 76770; 80048; 80051; 80053; 80069; 80202; 81003; 82330; 82805; 83036; 83605; 83690; 83735; 83880; 84132; 85014; 85018; 85025; 85378; 85999; 87040; 87205; 87426; 93005; 93306; 94002; 94799; 96372; 96375; 97162; 99283; C9113; J0131; J0330; J0690; J1100; J1170; J1644; J1650; J1940; J2270; J2405; J2543; J2704; J2765; J3010; J3370; J3475; J3480; J3490; J7030; J7050; Q9963; Q9967

== ENCOUNTER 2020-08-11 18:21 | Emergency (ER) | payer MEDICARE, SELFPAY ==
[2020-08-11] VITALS (22 sets, daily range): BP systolic 68–135; BP diastolic 41–86; PULSE 70–105; RESP 9–28; TEMP 37; O2SAT 95–100; BMI 30.9
--- NOTE | 2020-08-11 18:25 | XR_ITS ---
WS: [id number] PORTABLE CHEST HISTORY: fever COMPARISON: 08/11/2020. RIGHT internal jugular line with tip in the distal SVC. Mild hyperinflation of the lungs. Progression of the interstitial thickening and edema throughout bot h lungs. Increasing consolidation over the central RIGHT lung. This could be fluid along the fissure or pneumonia. Not likely neoplasm as it was not present on the prior study of 07/29/2020. No pleural effusion or pneumothorax. Cardiac size: Normal. Mediastinum/Aorta: Mild atherosclerosis aorta. Sclerotic foci in the proximal LEFT humerus are probably enchondromas. XR/XR chest 1V portable [id number] IMPRESSION: 1. Progression of interstitial edema since the prior study. 2. Increasing consolidation over the central LEFT lung may be near of round at electasis or fluid along the fissure.
--- NOTE | 2020-08-11 18:25 | XR_ITS ---
WS: [id number] PORTABLE CHEST HISTORY: fever COMPARISON: 07/29/2020 Increasing consolidation over the central LEFT lung is new since the prior study. There is also mild interstitial edema. RIGHT lung is clear. Small LEFT pleural effusion is new. Cardiac size: Normal. Mediastinum/Aorta: No mediastinal widening. Suspicious for hiatal hernia. Sclerotic lesion in the proximal LEFT humerus is probably an enchondroma. Prior cholecystectomy. XR/XR chest 1V portable [id number] IMPRESSION: 1. Increasing consolidation is new in the central LEFT lung. Probably developi ng pneumonia or atelectasis. 2. Small LEFT pleural effusion.
--- NOTE | 2020-08-11 18:26 | ECG_ITS ---
[facility] Test Date: 2020-08-11 Pat Name: Judy Aguiar Department: Room: Gender: Female Senior J2E[employer] Developer: : 1960 Requested By: Abhinav De La Cruz Order Number: [id number] Reading MD: SIMIN GOODEN Measurements Intervals [place] Rate: 106 P: 54 PA: 121 QRS: 52 QRSD: 88 T: 36 QT: 371 QTc: 494 Interpretive Statements SINUS TACHYCARDIA POSSIBLE LEFT ATRIAL ENLARGEMENT [-0.1mV P WAVE IN V1/V2] ST DEVIATION AND MODERATE T-WAVE ABNORMALITY, CONSIDER ANTERIOR ISCHEMIA [-0.1+ mV T WAVE IN V3/V4] Compared to ECG 07/26/2020 09:23:59 T-wave abnormality now present Possible ischemia now present Short PA interval no longer present Electronically Signed On 08-11-2020 19:54:14 KETTLE FRY COOK OPERATOR by SIMIN GOODEN [id number]
--- NOTE | 2020-08-11 18:27 | ED_ITS ---
HPI - Abdominal Pain General: Chief Complaint: Fever Stated Complaint: AMS, HYPOTENSION, ABD PAIN Time Seen by Provider: 08/11/20 18:23 Source: patient and EMS Mode of arrival: EMS Limitations: no limitations History of Present Illness: HPI narrative: 60-year-old female who had surgery 2 weeks ago for perforated ulcer. Patient's family states that tonight she started having abdominal pain along with low-grade fevers and some confusion. Patient here has no confusion is able answer my questions appropriately. States she is had fever 90 999 abdominal pain she rates a 5 out of 10. States she had a mild cough as well. Patient's blood pressure with EMS was in the 70s and 80s. Her blood pressure is 100/56. She denies any worsening improving factors. Associated Symptoms: Denies chills, dysuria and fever(s) Review of Systems Const: Denies: fever(s), chills, body aches or change in appetite Eyes: Denies: blurry vision or eye discomfort ENMT: Denies: throat pain or dental pain Card: Denies: chest pain Resp: Denies: dyspnea GI: Reports: abdominal pain : Denies: dysuria Musc: Denies: neck pain or back pain Skin/Breast: Denies: rash Neuro: Reports: weakness in extremities Psych: Denies: depression Nehemias/Lymph: Denies: easy bruising All/Imm: Denies: urticaria PFSH ED PFSH: Medical History (Updated 08/12/20 @ 02:09 by Abhinav De La Cruz MD) Chronic back pain COPD (chronic obstructive pulmonary disease) GERD (gastroesophageal reflux disease) Peptic ulcer disease Tobacco dependency Surgical History (Updated 08/01/20 @ 00:00 by ) History of back surgery History of surgery on extremity History of tonsillectomy Hx of appendectomy Hx of cholecystectomy S/P laparoscopy repair of duodenal perforation Status post Arnoldo fundoplication Family History (Updated 07/22/20 @ 09:20 by Ramakrishna Solo MD) Other Cancer Social History (Updated 07/22/20 @ 09:21 by Ramakrishna Solo MD) Smoking and tobacco status: current every day smoker Alcohol intake: current Alcohol intake frequency: holidays/special occasions only Physical Exam Const: COMMON NORMALS: no acute distress, patient oriented x3 and healthy appearing HENMT: COMMON NORMALS: normocephalic and atraumatic HEAD & SCALP: normocephalic and atraumatic Eye: COMMON NORMALS: Equal, round and reactive pupils present and EOMs intact bilaterally PUPIL: Yes Equal, round and reactive pupils present Neck/C-Spine: COMMON NORMALS: full ROM and supple Chest: COMMONS NORMALS: normal inspection of the chest and normal palpation of entire chest wall Resp: COMMON NORMALS: normal respiratory effort, No retractions, No use of accessory muscles and clear to auscultation bilaterally AUSCULTATION: clear to auscultation bilaterally Cardio: COMMON NORMALS: regular rate, regular rhythm and No murmurs present (Cardio) RATE: regular rate RHYTHM: regular rhythm GI: COMMON NORMALS: Normal to inspection, nondistended, normoactive bowel sounds present, Soft to palpation, non-tender and no masses PALPATION: Yes Soft to palpation Extremity: COMMON NORMALS: normal to inspection and full ROM Neuro: COMMON NORMALS: patient oriented x3, moves all extremities and no focal motor deficits Psych: COMMON NORMALS: mental status grossly normal, Normal thought process present and cooperative THOUGHT PROCESS: Normal thought process present Skin: COMMON NORMALS: no rashes or lesions noted and no wounds GENERAL SKIN EXAM: no rashes or lesions noted Procedures Central Line Placement Right IJ: Time Out Performed: Yes Patient Placed on Monitor/Pulse Ox: Yes MD Prep: mask, gown and gloves Central Line Prep: Chlorhexidine scrub Local Anesthetic: lidocaine 1% Amount of anesthesia used (mL): 10 Ultrasound Used for Placement: Yes Central Line Lumen Inserted: triple Post Procedure: sutured in place, good blood return, all ports aspirated, flushed, capped and sterile dressing applied Post Procedure X-Ray: tip of catheter in good position Patient Tolerated Procedure: well Complications: none Course Vital Signs: Vital signs: Vital Signs Temperature 98.6 F 08/11/20 18:25 Pulse Rate 102 H 08/12/20 02:45 Respiratory Rate 17 08/12/20 02:45 Blood Pressure 104/57 08/12/20 02:45 Pulse Oximetry 93 08/12/20 02:45 MDM - Abdominal Pain MDM Narrative: Medical decision making narrative: Patient presents for septic shock likely from acute cystitis along with a pneumonia. Patient continued to be hypotensive after IV fluids. Patient started on Levophed had a central line placed. Do not have any ICU capability here and I spoke to parts department supervisor at [facility] and will transfer there. Lab Data: Labs: Lab Results 08/11/20 08/11/20 08/11/20 Range/Units 18:40 18:40 18:40 WBC 12.4 H (4.0-10.0) 10^3/ uL RBC 3.02 L (4.1-5.3) 10^6/u L Hgb 9.4 L (11.5-15.3) g/dL Hct 30.6 L (37.0-47.0) % MCV 101.3 H (81-99) fL MCH 31.1 (28.0-34.0) pg MCHC 30.7 (30.0-36.0) g/dL RDW 19.0 H (12.1-15.1) % Plt Count 294 (130-400) 10^3/c mm MPV 11.1 H (7.4-10.4) fL Neut % (Auto) 66.4 % Lymph % (Auto) 22.8 % Geary % (Auto) 5.4 % Eos % (Auto) 4.3 % Baso % (Auto) 0.6 % Neut # (Auto) 8.26 H (1.8-7.7) 10^3/u L Lymph # (Auto) 2.8 (0.8-4.8) 10^3/u L Geary # (Auto) 0.7 (0.2-0.9) 10^3/u L Eos # (Auto) 0.5 (0.0-0.8) 10^3/u L Baso # (Auto) 0.1 (0.0-0.1) 10^3/u L Nucleated RBC % (a uto) 0.2 % Nucleated RBCs # 0.0 /100WBC PT 22.50 H (12.1-14.9) SECO NDS INR 1.91 H (0.8-1.2) Sodium 154 H (136-145) mmol/L Potassium 2.6 L* (3.5-5.1) mmol/L Chloride 121 H (98-107) mmol/L Carbon Dioxide 23 (22-29) mmol/L Anion Gap 12.6 (5-19) BUN 21 (8-23) mg/dL Creatinine 2.2 H (0.5-0.9) mg/dL GFR Calculation 22.7 L (90-130) mL/min Glucose 97 (65-115) mg/dL Calculated Osmolal ity 321 H (285-295) mOsm/k g Lactate (0.5-2.2) mmol/L Calcium 8.0 L (8.5-10.5) mg/dL Total Bilirubin 0.9 (0.15-1.2) mg/dL AST 51 H (0-32) U/L ALT 22 (0-33) U/L Alkaline Phosphata se 239 H (35-105) IU/L NT-Pro-B Natriuret Pep 5793 H (0-125) pg/mL Total Protein 5.6 L (6.6-8.7) g/dL Albumin 2.3 L (3.5-5.2) g/dL Globulin 3.3 (1.3-4.6) g/dL Urine Color (Yellow) Urine Appearance (CLEAR) Urine pH (5-7) Ur Specific Gravit y (1.005-1.030) Urine Protein (Negative) Urine Glucose (UA) (Normal) Urine Ketones (Negative) Urine Blood (Negative) Urine Nitrate (Negative) Urine Bilirubin (Negative) Urine Urobilinogen (Negative) mg/dL Ur Leukocyte Essie ase (Negative) Urine RBC (0-2) /hpf Urine WBC (0-5) /hpf Ur Squamous Epith Cells (0-5) /hpf Amorphous Sediment Urine Bacteria (NONE) /hpf Urine Yeast /hpf SARS-CoV-2 Ag (Rap id) (Negative) 08/11/20 08/11/20 08/11/20 Range/Units 18:40 19:48 20:01 WBC (4.0-10.0) 10^3/ uL RBC (4.1-5.3) 10^6/u L Hgb (11.5-15.3) g/dL Hct (37.0-47.0) % MCV (81-99) fL MCH (28.0-34.0) pg MCHC (30.0-36.0) g/dL RDW (12.1-15.1) % Plt Count (130-400) 10^3/c mm MPV (7.4-10.4) fL Neut % (Auto) % Lymph % (Auto) % Geary % (Auto) % Eos % (Auto) % Baso % (Auto) % Neut # (Auto) (1.8-7.7) 10^3/u L Lymph # (Auto) (0.8-4.8) 10^3/u L Geary # (Auto) (0.2-0.9) 10^3/u L Eos # (Auto) (0.0-0.8) 10^3/u L Baso # (Auto) (0.0-0.1) 10^3/u L Nucleated RBC % (a uto) % Nucleated RBCs # /100WBC PT (12.1-14.9) SECO NDS INR (0.8-1.2) Sodium (136-145) mmol/L Potassium (3.5-5.1) mmol/L Chloride (98-107) mmol/L Carbon Dioxide (22-29) mmol/L Anion Gap (5-19) BUN (8-23) mg/dL Creatinine (0.5-0.9) mg/dL GFR Calculation (90-130) mL/min Glucose (65-115) mg/dL Calculated Osmolal ity (285-295) mOsm/k g Lactate 2.3 H (0.5-2.2) mmol/L Calcium (8.5-10.5) mg/dL Total Bilirubin (0.15-1.2) mg/dL AST (0-32) U/L ALT (0-33) U/L Alkaline Phosphata se (35-105) IU/L NT-Pro-B Natriuret Pep (0-125) pg/mL Total Protein (6.6-8.7) g/dL Albumin (3.5-5.2) g/dL Globulin (1.3-4.6) g/dL Urine Color Yellow (Yellow) Urine Appearance Cloudy A (CLEAR) Urine pH 5.0 (5-7) Ur Specific Gravit y 1.010 (1.005-1.030) Urine Protein Neg (Negative) Urine Glucose (UA) Norm (Normal) Urine Ketones Negative (Negative) Urine Blood 3+ H (Negative) Urine Nitrate Negative (Negative) Urine Bilirubin Neg (Negative) Urine Urobilinogen Norm (Negative) mg/dL Ur Leukocyte Essie ase 2+ H (Negative) Urine RBC 0-4 H (0-2) /hpf Urine WBC Too numerous to c nt H (0-5) /hpf Ur Squamous Epith Cells 5-10 H (0-5) /hpf Amorphous Sediment Not Reportable Urine Bacteria 2+ H (NONE) /hpf Urine Yeast 2+ H /hpf SARS-CoV-2 Ag (Rap id) Negative (Negative) Imaging Data ^: CT Head: Radiologist's impression: [facility] [place] [address] CT Scan Report Signed Patient: Judy Aguiar Unit #: [id number] : 1960 A cct#:[id number] Age/Sex: 60 / F ADM Date: 08/11/20 Loc: ER Room/Bed: Attending Dr: Ordering Provider/Ordering MD: Abhinav De La Cruz MD Date of Service: 08/11/20 Procedure(s): CT head wo con* [id number] Accession Number(s): [id number] Report Number: [id number] PROCEDURE INFORMATION: Exam: CT Head Without Contrast Exam date and time: 08/11/2020 8:43 PM Age: 60 years old Clinical indication: Altered mental status/memory loss; Additional info: AMS TECHNIQUE: Imaging protocol: Computed tomography of the head without contrast. Radiation optimization: All CT scans at this facility use at least one of these dose optimization techniques: automated exposure control; mA and/or kV adjustment per patient size (includes targeted exams where dose is matched to clinical indication); or iterative reconstruction. COMPARISON: No relevant prior studies available. 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 Cerebral ventricles: No ventriculomegaly. Bones/joints: Unremarkable. No acute fracture. Paranasal sinuses: Visualized sinuses are unremarkable. No fluid levels. Mastoid air cells: Visualized mastoid air cells are well aerated. Soft tissues: Unremarkable. CT/CT head wo con* [id number] IMPRESSION: No acute intracranial findings. CT Abd/Pel: Radiologist's impression: [facility] [email or web address] [address] CT Scan Report Signed Patient: Judy Aguiar Unit #: [id number] : 1960 Age/Sex: 60 / F ADM Date: 08/11/20 Loc: ER Room/Bed: Attending Dr: Ordering Provider/Ordering MD: Abhinav De La Cruz MD Date of Service: 08/11/20 Procedure(s): CT abdomen pelvis wo con [id number] Accession Number(s): [id number] Report Number: [id number] PROCEDURE INFORMATION: Exam: CT Abdomen And Pelvis Without Contrast Exam date and time: 08/11/2020 8:04 PM Age: 60 years old Clinical indication: Abdominal tenderness; Additional info: Abd pain TECHNIQUE: Imaging protocol: Computed tomography of the abdomen and pelvis without contrast. Radiation optimization: All CT scans at this facility use at least one of these dose optimization techniques: automated exposure control; mA and/or kV adjustment per patient size (includes targeted exams where dose is matched to clinical indication); or iterative reconstruction. COMPARISON: CT abdomen pelvis w con* [id number] 07/22/2020 7:46 AM RADIATION DOSE METRICS: Total DLP (mGy-cm): 744.46 FINDINGS: Limitations: The absence of intravenous contrast lessens the sensitivity of this study for solid organ abnormalities. Lungs: There is some partial atelectasis at the lung bases. There is some nonspecific ground-glass opacity in the left lower lobe not fully evaluated on this examination. Pleural space: There are small bilateral pleural effusions more on the left than on the right which are new compared with 07/22/2020. Liver: There is no focal abnormality within the liver. Gallbladder and bile ducts: There has been a cholecystectomy. Pancreas: The pancreas is normal. Spleen: The spleen is normal. Adrenal glands: The adrenal glands are normal. Kidneys and ureters: There is mild hydronephrosis. There is no evidence of renal or ureteral calcifications. The kidneys are normal. Stomach and bowel: There is no evidence of colitis/diverticulitis. Appendix: Not identified Intraperitoneal space: There is no evidence of free intraperitoneal fluid. Vasculature: The aorta demonstrates mild atherosclerotic calcification. There is no evidence of an abdominal aortic aneurysm. Lymph nodes: Unremarkable. No enlarged lymph nodes. Urinary bladder: Urinary bladder is markedly dilated with a volume of approximately 900 cc. Reproductive: Unremarkable as visualized. Bones/joints: Findings of posterior spinal fusion and metallic hardware are unchanged from previous. Soft tissues: There is some edema of the subcutaneous soft tissues of the abdominal wall which may represent anasarca. Surgical skin clips are seen in multiple places on the anterior abdominal wall suggesting history of recent laparoscopic surgery. CT/CT abdomen pelvis wo con [id number] IMPRESSION: 1. Bilateral pleural effusions. 2. Question of left pulmonary infiltrate not fully evaluated on this examination. 3. Markedly distended urinary bladder which may be the cause of the patient's pain. 4. Free air demonstrated on 07/22/2020 is no longer identified. 5. Mild anasarca. EKG Data ^: EKG 1: Attestation: I personally reviewed and interpreted this EKG as follows: EKG interpretation date: 08/11/20 EKG interpretation time: 18:38 Interpretation: nsr hr [address] or t wave abnormalities qrs 88 qtc 433 Critical Care Time Critical Care Time: Critical Care Time: Yes Total Critical Care Time: 36 Attestation: This case had a high probability of a clinically significant, sudden, or life threatening deterioration of this patient's condition which required my full and direct attention, intervention and personal management. Discharge Plan Discharge Patient Disposition: Xfer Other Clinical Impression: Septic shock, Acute cystitis Condition: Stable Referrals: Keerthi Olea FNP [Primary Care Provider] - Coding Level of Care Code ED Needle Process Felt Goods Supervisor for Chg Fwd Exam Comprehensive
[2020-08-11] MEDS: sodium chloride 0.9% 1,000 ML 999 ML IV ×3 (18:50→23:34)
--- NOTE | 2020-08-11 18:51 | PC.NURSE ---
Patient not following commands. Patient placed tylenol in mouth along water then spit it out into the floor. EMD notified.
[2020-08-11 19:17] LABS: Basophils # 0.1 10^3/uL (0.0-0.1); Basophils % 0.6 %; Eosinophils # 0.5 10^3/uL (0.0-0.8); Eosinophils % 4.3 %; Hematocrit 30.6 % (37.0-47.0); Hemoglobin 9.4 g/dL (11.5-15.3); Lymphocytes # 2.8 10^3/uL (0.8-4.8); Lymphocytes % 22.8 %; Mean Corpuscular HGB Conc 30.7 g/dL (30.0-36.0); Mean Corpuscular Hemoglobin 31.1 pg (28.0-34.0); Mean Corpuscular Volume 101.3 fL (81-99); Mean Platelet Volume 11.1 fL (7.4-10.4); Monocytes # 0.7 10^3/uL (0.2-0.9); Monocytes % 5.4 %; Neutrophils # 8.26 10^3/uL (1.8-7.7); Neutrophils % 66.4 %; Nucleated Red Blood Cells % 0.2 %; Platelet Count 294 10^3/cmm (130-400); Red Blood Count 3.02 10^6/uL (4.1-5.3); White Blood Count 12.4 10^3/uL (4.0-10.0)
[2020-08-11 19:24] LABS: INR 1.91 (0.8-1.2)
[2020-08-11 19:28] LABS: Lactate (Lactic Acid level) 2.3 mmol/L (0.5-2.2)
[2020-08-11 19:38] LABS: Alanine Aminotransferase 22 U/L (0-33); Albumin Level 2.3 g/dL (3.5-5.2); Alkaline Phosphatase 239 IU/L (35-105); Anion Gap 12.6 (5-19); Aspartate Amino Transferase 51 U/L (0-32); Blood Urea Nitrogen 21 mg/dL (8-23); Carbon Dioxide 23 mmol/L (22-29); Chloride 121 mmol/L (98-107); Globulin 3.3 g/dL (1.3-4.6); Glomerular Filtration Rate 22.7 mL/min (90-130); Glucose 97 mg/dL (65-115); NT Pro B Type Natriuretic Pept 5793 pg/mL (0-125); Osmolality Calculated 321 mOsm/kg (285-295); Sodium 154 mmol/L (136-145); Total Bilirubin 0.9 mg/dL (0.15-1.2); Total Protein 5.6 g/dL (6.6-8.7)
[2020-08-11 19:42] LABS: Potassium 2.6 mmol/L (3.5-5.1)
--- NOTE | 2020-08-11 19:43 | PC.NURSE ---
potassium 2.6
[2020-08-11] MEDS: piperacillin-tazobactam 3.375 GM in sodium chloride 0.9% (plus) 50 ML IV (19:44)
[2020-08-11] MEDS: acetaminophen 650 mg Supp PR (19:44)
[2020-08-11 20:22] LABS: Urine Color Yellow (Yellow)
[2020-08-11 20:23] LABS: Add Urine Microscopic? YES; Bilirubin Urine Neg (Negative); Blood Urine 3+ (Negative); Glucose Urine UA Norm (Normal); Ketones Urine Negative (Negative); Leukocyte Esterase Urine 2+ (Negative); Nitrate Urine Negative (Negative); Protein Urine Neg (Negative); RBC Urine 0-4 /hpf (0-2); Urine Appearance Cloudy (CLEAR); Urobilinogen Urine Norm (Negative); WBC Urine TOO NUMEROUS TO CNT /hpf (0-5)
[2020-08-11 20:24] LABS: Add Urine Culture? Yes; Bacteria Urine 2+ /hpf
[2020-08-11 20:33] LABS: SARS Covid-2 Antigen Negative (Negative)
--- NOTE | 2020-08-11 20:35 | CTR_ITS ---
PROCEDURE INFORMATION: Exam: CT Head Without Contrast Exam date and time: 08/11/2020 8:43 PM Age: 60 years old Clinical indication: Altered mental status/memory loss; Additional info: AMS TECHNIQUE: Imaging protocol: Computed tomography of the head without contrast. Radiation optimization: All CT scans at this facility use at least one of these dose optimization techniques: automated exposure control; mA and/or kV adjustment per patient size (includes targeted exams where dose is matched to clinical indication); or iterative reconstruction. COMPARISON: No relevant prior studies available. 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 Cerebral ventricles: No ventriculomegaly. Bones/joints: Unremarkable. No acute fracture. Paranasal sinuses: Visualized sinuses are unremarkable. No fluid levels. Mastoid air cells: Visualized mastoid air cells are well aerated. Soft tissues: Unremarkable. CT/CT head wo con* [id number] IMPRESSION: No acute intracranial findings. Radiation Dose CTDIVOL = (mGy): DLP = 819.2 (mGy-cm)
[2020-08-11] MEDS: vancomycin 1,000 MG in sodium chloride 0.9% 250 ML 250 MG IV (21:11)
[2020-08-11] MEDS: lidocaine 1% 5 ML in potassium chloride premix 100 ML 50 ML IV (21:22)
--- NOTE | 2020-08-11 23:36 | PC.NURSE ---
Narcan not given per physician order. Potassium po changed to IV.
[2020-08-12] VITALS (19 sets, daily range): BP systolic 81–120; BP diastolic 53–73; PULSE 96–110; RESP 15–23; TEMP 36.8; O2SAT 93–100
[2020-08-12] MEDS: piperacillin-tazobactam 3.375 GM in sodium chloride 0.9% (plus) 50 ML IV (03:57)
== END 2020-08-12 04:19 | disposition other institution (70) ==
PROVIDERS: Emergency Provider Emergency Medicine; PCP Nurse Practitioner Family
DX: A41.9 Sepsis, unspecified organism (principal); N30.00 Acute cystitis without hematuria; R65.21 Severe sepsis with septic shock; J44.9 Chronic obstructive pulmonary disease, unspecified; F17.210 Nicotine dependence, cigarettes, uncomplicated; I70.0 Atherosclerosis of aorta
CPT/HCPCS: 12345; 36415; 36556; 51702; 70450; 71045; 74176; 80053; 81001; 83605; 83880; 85025; 85610; 87040; 87086; 87106; 87426; 93005; 96365; 96366; 96375; 99284; 99285; J2543; J3370; J3480; J7030; J7050

== ENCOUNTER → 2020-11-03 12:45 | Outpatient (BNVA) | payer MEDICARE, SELFPAY | PROVIDERS: PCP Nurse Practitioner; Visit Provider Nurse Practitioner | DX: I50.32 Chronic diastolic (congestive) heart failure (principal); F41.8 Other specified anxiety disorders; L89.610 Pressure ulcer of right heel, unstageable | CPT/HCPCS: 80053; 80061; 84443; 85025 ==

== ENCOUNTER → 2021-06-24 15:13 | Outpatient (BNVA) | payer MEDICARE, SELFPAY | PROVIDERS: PCP Nurse Practitioner; Visit Provider Nurse Practitioner | DX: F41.8 Other specified anxiety disorders (principal); R60.9 Edema, unspecified; K27.9 Peptic ulcer, site unspecified, unspecified as acute or chronic, without hemorrhage or perforation; Z13.6 Encounter for screening for cardiovascular disorders; I50.32 Chronic diastolic (congestive) heart failure; K58.9 Irritable bowel syndrome, unspecified | CPT/HCPCS: 80053; 80061; 85025 ==

== ENCOUNTER → 2022-01-12 10:02 | Outpatient (BNVA) | payer MEDICARE, SELFPAY | PROVIDERS: PCP Nurse Practitioner; Visit Provider Nurse Practitioner | DX: R73.9 Hyperglycemia, unspecified (principal); F41.8 Other specified anxiety disorders; I50.32 Chronic diastolic (congestive) heart failure | CPT/HCPCS: 80053; 80061; 83036; 84443 ==

== ENCOUNTER → 2022-06-29 11:49 | Outpatient (BNVA) | payer MEDICARE, SELFPAY | PROVIDERS: PCP Nurse Practitioner; Visit Provider Nurse Practitioner | DX: R11.10 Vomiting, unspecified (principal); R07.81 Pleurodynia; F41.8 Other specified anxiety disorders; I50.32 Chronic diastolic (congestive) heart failure; K27.9 Peptic ulcer, site unspecified, unspecified as acute or chronic, without hemorrhage or perforation | CPT/HCPCS: 80053; 81000; 85025 ==

== ENCOUNTER → 2022-07-06 13:37 | Outpatient (BNVA) | payer MEDICARE, SELFPAY | PROVIDERS: PCP Nurse Practitioner; Visit Provider Nurse Practitioner | DX: R07.81 Pleurodynia (principal); E87.6 Hypokalemia | CPT/HCPCS: 71101; 80048 ==

== ENCOUNTER → 2022-07-20 11:44 | Outpatient (BNVA) | payer MEDICARE, SELFPAY | PROVIDERS: PCP Nurse Practitioner; Visit Provider Nurse Practitioner | DX: E87.6 Hypokalemia (principal) | CPT/HCPCS: 80048 ==

== ENCOUNTER 2022-07-24 14:11 | Observation (INO) | payer MEDICARE, SELFPAY ==
[2022-07-24] VITALS (58 sets, daily range): BP systolic 116–159; BP diastolic 76–90; PULSE 62–136; RESP 13–25; TEMP 36.6–36.7; O2SAT 84–98; BMI 22.6
--- NOTE | 2022-07-24 14:12 | ED_ITS ---
HPI - Fall General: Chief Complaint: Fall Stated Complaint: RIGHT CHEST PAIN S/P FALL Time Seen by Provider: 07/24/22 14:11 History of Present Illness: Ms Aguiar is a 62-year-old lady with history of heart failure, anxiety and depression presenting to the emergency department due to chest and abdominal pain after a fall. Fall was a few days ago and she is unsure of exactly why but thinks she tripped, denies preceding symptoms. Immediately had pain in the right side of her chest. [place] like she broke her rib. Since that time pain is worsened. Additionally she has developed nausea vomiting and diarrhea. Intensity symptoms is moderate however becomes severe with inspiration and movement. Sharp and stabbing. Per EMS she denied cardiac history however is on Lasix and diltiazem, sounds like she has been unable to take her medications due to the symptoms. No other specific changes in health, exacerbating, or alleviating factors identified. Onset (ago): day(s) Fall from: standing Place fall occurred: home Prolonged down time: no Symptoms prior to fall: none Context: tripped/slipped Location of injury: chest and abdomen Severity: moderate Quality: sharp and stabbing Review of Systems General: Reports: 10 or more systems reviewed and unremarkable except in HPI and below PFSH ED PFSH: Medical History Chronic back pain Chronic congestive heart failure with left ventricular diastolic dysfunction COPD (chronic obstructive pulmonary disease) GERD (gastroesophageal reflux disease) Peptic ulcer disease Tobacco dependency Surgical History History of back surgery History of surgery on extremity History of tonsillectomy Hx of appendectomy Hx of cholecystectomy S/P laparoscopy repair of duodenal perforation S/P percutaneous endoscopic gastrostomy (PEG) tube placement removed 03/16/21 Status post Arnoldo fundoplication Family History Father Cancer Pancreatic Mother Cancer Social History Smoking and tobacco status: current every day smoker Second hand smoke exposure: No Smoking risk assessment/counseling performed?: Yes Alcohol intake: current Alcohol intake frequency: holidays/special occasions only Desire information about alcohol rehabilitation?: No Counseling given: No Desire information about substance/drug rehabilitation?: No Counseling given: No Adopted: No Caregiver/support person: Yes Lives independently: Yes Household members: significant other Housing: House Marital status: Single Number of children: 0 service: Yes branch: [employer] Current occupational status: disabled Pets and animals: Yes History of recent travel: No Current gender identity: Female Physical Exam Const: COMMON NORMALS: alert GENERAL APPEARANCE: cooperative and well developed HENMT: COMMON NORMALS: normocephalic and atraumatic HEAD & SCALP: normocephalic and atraumatic THROAT: posterior oropharynx normal OTHER: No colon signs or raccoon eyes. No hemotympanum. No otorrhea or rhinorrhea. Jaw alignment normal. Dentition baseline. No obvious bony step-offs. No septal hematoma. No evidence of ocular entrapment. Eye: COMMON NORMALS: conjunctivae normal CONJUNCTIVA: Yes conjunctivae normal SCLERA: sclerae normal Neck/C-Spine: COMMON NORMALS: supple GENERAL: Yes trachea midline Chest: OTHER: Right chest wall and anterior lower chest tenderness palpation Resp: COMMON NORMALS: clear to auscultation bilaterally EFFORT & INSPECTION: Yes able to speak in complete sentences AUSCULTATION: clear to auscultation bilaterally Cardio: COMMON NORMALS: regular rhythm RATE: tachycardic RHYTHM: regular rhythm GI: COMMON NORMALS: Soft to palpation PALPATION: Yes Soft to palpation, Yes Tenderness to palpation present (GI), No Guarding due to palpation present (GI) and No Rigid due to palpation Extremity: GENERAL: Yes normal exam except as noted and No edema Neuro: COMMON NORMALS: moves all extremities SENSORIUM/ORIENTATION: Yes alert and No Orientation impaired Psych: COMMON NORMALS: mental status grossly normal and Normal thought process present THOUGHT PROCESS: Normal thought process present Course Vital Signs: Vital signs: Vital Signs Temperature 97.8 F 07/26/22 11:12 Pulse Rate 114 H 07/26/22 11:12 Respiratory Rate 16 07/26/22 11:12 Blood Pressure 139/83 07/26/22 11:12 Pulse Oximetry 95 07/26/22 11:12 Oxygen Delivery Me thod 07/26/22 11:12 Oxygen Flow Rate 2 07/25/22 20:00 MDM - Fall Medical Decision Making 62-year-old lady presenting with continued pain after a fall. Initial exam as above, head to toe exam performed. Patient is noted to be tachycardic and borderline low oxygen saturation on room air requiring supplemental oxygen. EKG shows sinus tachycardia with short [place] interval, no STEMI. Labs notable for mild leukocytosis, normocytic anemia, thrombocytosis which may be reactive. Metabolic panel with hyponatremia and mild evidence of intravascular depletion. BNP is elevated. Delta 2-hour troponin is negative. CT head and cervical spine negative for acute pathology. Chest x-ray with no lobar consolidation or pneumothorax. CT imaging demonstrates isolated rib fractures and bilateral pleural effusions not representing hemothorax. Given vital signs abnormalities and evidence of volume overload I believe that patient requires inpatient observation for diuresis. The results of ED evaluation were discussed with the patient including plan for admission due to requirement for level of care not available if discharged to prevent significant worsening/deterioration. Patient agreeable with plan. Discussed with hospitalist service who was agreeable to admit patient. Medical Records I reviewed the patient's medical records. Lab Data I reviewed the patient's lab results. 07/25/22 04:15 07/25/22 04:15 Radiology Impressions Chest X-Ray 07/24/22 14:17 IMPRESSION: No acute findings. Cervical Spine CT 07/24/22 14:19 IMPRESSION: No acute spine fracture-subluxation. Multilevel disc disease and chronic endplate/facet disease with spondylosis as described above. No significant central canal stenosis related to osseous elements. Chest/Abdomen/Pelvis CT 07/24/22 14:19 IMPRESSION: 1. Bilateral rib fractures. 2. Bilateral pleural effusions most likely pre-existing, not representing acute hemothorax. Fluid measures simple. IMPRESSION: Negative for acute abdominopelvic injury. Head CT 07/24/22 14:19 IMPRESSION: No acute intracranial findings. Laboratory Results WBC 12.0 10^3/uL (4.0-10.0) H 07/24/22 15:04 RBC 3.88 10^6/uL (4.1-5.3) L 07/24/22 15:04 Hgb 11.0 g/dL (11.5-15.3) L 07/24/22 15:04 Hct 35.2 % (37.0-47.0) L 07/24/22 15:04 MCV 90.7 fl (81-99) 07/24/22 15:04 MCH 28.4 pg (28.0-34.0) 07/24/22 15:04 MCHC 31.3 g/dL (30.0-36.0) 07/24/22 15:04 RDW 16.5 % (12.1-15.1) H 07/24/22 15:04 Plt Count 637 10^3/cmm (130-400) H 07/24/22 15:04 MPV 9.3 fL (7.4-10.4) 07/24/22 15:04 Neut % (Auto) 78.6 % 07/24/22 15:04 Lymph % (Auto) 13.1 % 07/24/22 15:04 [place]ell % (Auto) 6.0 % 07/24/22 15:04 Eos % (Auto) 0.8 % 07/24/22 15:04 Baso % (Auto) 0.7 % 07/24/22 15:04 Neut # (Auto) 9.44 10^3/uL (1.8-7.7) H 07/24/22 15:04 Lymph # (Auto) 1.6 10^3/uL (0.8-4.8) 07/24/22 15:04 [place]ell # (Auto) 0.7 10^3/uL (0.2-0.9) 07/24/22 15:04 Eos # (Auto) 0.1 10^3/uL (0.0-0.8) 07/24/22 15:04 Baso # (Auto) 0.1 10^3/uL (0.0-0.1) 07/24/22 15:04 Nucleated RBC % (auto) 0 % 07/24/22 15:04 Nucleated RBCs # 0.0 /100WBC 07/24/22 15:04 Sodium 128 mmol/L (136-145) L 07/24/22 15:04 Potassium 3.8 mmol/L (3.5-5.1) 07/24/22 15:04 Chloride 98 mmol/L (98-107) 07/24/22 15:04 Carbon Dioxide 21 mmol/L (22-29) L 07/24/22 15:04 Anion Gap 12.8 (5-19) 07/24/22 15:04 BUN 9 mg/dL (8-23) 07/24/22 15:04 Creatinine 0.7 mg/dL (0.5-0.9) 07/24/22 15:04 GFR Calculation 84.5 mL/min (90-130) L 07/24/22 15:04 Glucose 94 mg/dL (65-115) 07/24/22 15:04 Calculated Osmolality 264 mOsm/kg (285-295) L 07/24/22 15:04 Calcium 8.4 mg/dL (8.5-10.5) L 07/24/22 15:04 Magnesium 2.1 mg/dL (1.7-2.3) 07/24/22 15:04 Total Bilirubin 0.2 mg/dL (0.15-1.2) 07/24/22 15:04 AST 6 U/L (0-32) 07/24/22 15:04 ALT < 5 U/L (0-33) 07/24/22 15:04 Alkaline Phosphatase 181 U/L (35-105) H 07/24/22 15:04 Troponin T Baseline 22 ng/L (0-10) H 07/24/22 15:04 Troponin T 120 Minute 23.19 ng/L (0-10) H 07/24/22 17:07 Delta Troponin T 1.19 ABS# (0-10) 07/24/22 17:07 NT-Pro-B Natriuret Pep 1986 pg/mL (0-125) H 07/24/22 17:07 Total Protein 6.7 g/dL (6.6-8.7) 07/24/22 15:04 Albumin 3.0 g/dL (3.5-5.2) L 07/24/22 15:04 Globulin 3.7 g/dL (1.3-4.6) 07/24/22 15:04 Lipase 9 U/L (13-60) L 07/24/22 15:04 TSH 1.80 uIU/mL (0.27-4.20) 07/24/22 15:04 Urine Color Yellow (Yellow) 07/24/22 17:02 Urine Appearance Clear (CLEAR) 07/24/22 17:02 Urine pH 6.5 (5-7) 07/24/22 17:02 Ur Specific [place] 1.005 (1.005-1.030) 07/24/22 17:02 Urine Protein Trace (Negative) 07/24/22 17:02 Urine Glucose (UA) Norm (Normal) 07/24/22 17:02 Urine Ketones Negative (Negative) 07/24/22 17:02 Urine Blood Neg (Negative) 07/24/22 17:02 Urine Nitrate Positive (Negative) H 07/24/22 17:02 Urine Bilirubin Neg (Negative) 07/24/22 17:02 Urine Urobilinogen Norm mg/dL (Negative) 07/24/22 17:02 Ur Leukocyte Esterase 1+ (Negative) H 07/24/22 17:02 Urine RBC None /hpf (0-2) 07/24/22 17:02 Urine WBC 25-40 /hpf (0-5) H 07/24/22 17:02 Ur Squamous Epith Cells 5-10 /hpf (0-5) H 07/24/22 17:02 Amorphous Sediment Not Reportable 07/24/22 17:02 Urine Bacteria 2+ /hpf (NONE) H 07/24/22 17:02 Discharge Plan Discharge Patient Disposition: Placed in Observation Admit Provider: Brooke Winters Clinical Impression: Acute on chronic congestive heart failure, Pleural effusion, bilateral, Tachycardia, Multiple rib fractures Discharge Diet: Diabetic Discharge Activity: Increase activity as tolerated and Use walker/crutches as instructed Coding Level of Care Code ED Nursing Information Systems Coordinator for Chg Fwd Exam Comprehensive
--- NOTE | 2022-07-24 14:17 | XRR_ITS ---
PROCEDURE INFORMATION: Exam: XR Chest Exam date and time: 07/24/2022 2:36 PM Age: 62 years old Clinical indication: Pain; Right-sided; Additional info: Cp TECHNIQUE: Imaging protocol: Radiologic exam of the chest. Views: 1 view. COMPARISON: CR XR ribs LT mn 3V w CXR1V [id number] 07/06/2022 1:38 PM FINDINGS: Lungs: Unremarkable. No consolidation. Pleural spaces: Unremarkable. No pleural effusion. No pneumothorax. Heart/Mediastinum: Unremarkable. No cardiomegaly. Bones/joints: Unremarkable. XR/XR chest 1V portable [id number] IMPRESSION: No acute findings.
--- NOTE | 2022-07-24 14:18 | ECG_ITS ---
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
--- NOTE | 2022-07-24 14:19 | CTR_ITS ---
PROCEDURE INFORMATION: Exam: CT Cervical Spine Without Contrast Exam date and time: 07/24/2022 2:34 PM Age: 62 years old Clinical indication: Injury or trauma; Fall; Blunt trauma TECHNIQUE: Imaging protocol: Computed tomography of the cervical spine without contrast. Radiation optimization: All CT scans at this facility use at least one of these dose optimization techniques: automated exposure control; mA and/or kV adjustment per patient size (includes targeted exams where dose is matched to clinical indication); or iterative reconstruction. COMPARISON: OT NM bone scan whole body* [id number] 06/10/2016 7:49 AM RADIATION DOSE METRICS: Total DLP (mGy-cm): 1132.99 FINDINGS: Bones/joints: Multilevel endplate/uncovertebral osteophytes and facet arthropathy are noted. No acute spine fracture or subluxation. Straightening/reversal of normal lordosis may be related to spasm or positioning. Mild-moderate disc space narrowing from C3 through C7. C2-C3: No significant disc protrusion. No severe spinal canal stenosis. No significant neural foraminal narrowing. C3-C4: No significant disc protrusion. No severe spinal canal stenosis. Moderate-severe bilateral neural foraminal narrowing. C4-C5: No significant disc protrusion. No severe spinal canal stenosis. Moderate bilateral neural foraminal narrowing. C5-C6: No significant disc protrusion. No severe spinal canal stenosis. Moderate-severe bilateral neural foraminal narrowing. C6-C7: No significant disc protrusion. No severe spinal canal stenosis. Severe bilateral neural foraminal narrowing. C7-T1: No significant disc protrusion. No severe spinal canal stenosis. No significant neural foraminal narrowing. Lungs: Lung apices are normal. Soft tissues: Unremarkable. CT/CT cervical spin wo con* [id number] IMPRESSION: No acute spine fracture-subluxation. Multilevel disc disease and chronic endplate/facet disease with spondylosis as described above. No significant central canal stenosis related to osseous elements.
--- NOTE | 2022-07-24 14:19 | CTR_ITS ---
PROCEDURE INFORMATION: Exam: CT Head Without Contrast Exam date and time: 07/24/2022 2:34 PM Age: 62 years old Clinical indication: Injury or trauma; Fall; Blunt trauma (contusions or hematomas) TECHNIQUE: Imaging protocol: Computed tomography of the head without contrast. Radiation optimization: All CT scans at this facility use at least one of these dose optimization techniques: automated exposure control; mA and/or kV adjustment per patient size (includes targeted exams where dose is matched to clinical indication); or iterative reconstruction. COMPARISON: CT head wo con* [id number] 08/11/2020 8:43 PM RADIATION DOSE METRICS: Total DLP (mGy-cm): 1132.99 FINDINGS: Brain: Mild periventricular white matter changes, most likely related to chronic microvascular ischemic disease. Mild brain parenchymal atrophy. No hemorrhage. No mass effect or midline shift. Cerebral ventricles: Some ventricular prominence, likely related to brain parenchymal volume loss. Paranasal sinuses: Visualized sinuses are unremarkable. No fluid levels. Mastoid air cells: Visualized mastoid air cells are well aerated. Bones/joints: Unremarkable. No acute fracture. Soft tissues: Unremarkable. CT/CT head wo con* [id number] IMPRESSION: No acute intracranial findings.
--- NOTE | 2022-07-24 14:19 | CTR_ITS ---
PROCEDURE INFORMATION: Exam: CTA Chest With Contrast Exam date and time: 07/24/2022 2:39 PM Age: 62 years old Clinical indication: Injury or trauma; Fall; Ruq; Blunt trauma (contusions or hematomas); Additional info: Fall, R side chest abd pain, n/v/d, tachycardia TECHNIQUE: Imaging protocol: Computed tomographic angiography of the chest with contrast. 3D rendering (Not supervised by radiologist): MIP and/or 3D reconstructed images were created by the technologist. Radiation optimization: All CT scans at this facility use at least one of these dose optimization techniques: automated exposure control; mA and/or kV adjustment per patient size (includes targeted exams where dose is matched to clinical indication); or iterative reconstruction. Contrast material: OMNI 350; Contrast volume: 100 ml; Contrast route: INTRAVENOUS (IV); COMPARISON: CR (CHEST, ) 07/24/2022 2:36 PM RADIATION DOSE METRICS: Total DLP (mGy-cm): 903.87 FINDINGS: Pulmonary arteries: Normal. No pulmonary emboli. Aorta: Unremarkable. No aortic aneurysm. No aortic dissection. Thyroid: Symmetric thyroid lobes. Lungs: Bilateral lower lobe compressive atelectasis. Diffuse reticular changes of pulmonary interstitium. Mild bronchial wall thickening. Minor diffuse bronchiectasis. No central airway obstruction. Mild mosaic attenuation changes of lung parenchyma. Pleural spaces: Moderate volume right pleural effusion. Small volume left pleural effusion. Heart: Unremarkable. No cardiomegaly. No pericardial effusion. Mediastinal space: Unremarkable thoracic esophagus. Lymph nodes: Unremarkable. No enlarged lymph nodes. Bones/joints: Age indeterminate fracture left anterior rib 6 with angulation deformity of cortex. Mildly displaced fracture anterior left rib 8. Moderately displaced fracture posterior right rib 7. Unremarkable thoracic spine. Negative for sternal fracture. Soft tissues: Unremarkable. PROCEDURE INFORMATION: Exam: CT Abdomen And Pelvis With Contrast Exam date and time: 07/24/2022 2:39 PM Age: 62 years old Clinical indication: Injury or trauma; Fall; Ruq; Blunt trauma (contusions or hematomas); Additional info: Fall, R side chest abd pain, n/v/d, tachycardia TECHNIQUE: Imaging protocol: Computed tomography of the abdomen and pelvis with contrast. Radiation optimization: All CT scans at this facility use at least one of these dose optimization techniques: automated exposure control; mA and/or kV adjustment per patient size (includes targeted exams where dose is matched to clinical indication); or iterative reconstruction. Contrast material: OMNI 350; Contrast volume: 100 ml; Contrast route: INTRAVENOUS (IV); COMPARISON: CT abdomen pelvis con [id number] 08/11/2020 8:46 PM RADIATION DOSE METRICS: Total DLP (mGy-cm): 903.87 FINDINGS: Liver: Normal. No mass. Gallbladder and bile ducts: Mild diffuse biliary system dilation. Cholecystectomy. Pancreas: Normal. No ductal dilation. Spleen: Normal. No splenomegaly. Adrenal glands: Normal. No mass. Kidneys and ureters: Normal. No hydronephrosis. Stomach and bowel: Unremarkable. No obstruction. No mucosal thickening. Appendix: Appendectomy suspected. Correlate with history. Intraperitoneal space: Unremarkable. No free air. No significant fluid collection. Vasculature: Diffuse abdominal aorta atherosclerotic wall plaque. Negative for dissection. Negative for aneurysm. Lymph nodes: Unremarkable. No enlarged lymph nodes. Urinary bladder: Unremarkable as visualized. Reproductive: Unremarkable as visualized. Bones/joints: Negative for acute lumbar spine fracture. L3 through S1 posterior fusion without complication. Negative for pelvic fracture. Soft tissues: Unremarkable. CT/CT angio chest w abd pel w con IMPRESSION: 1. Bilateral rib fractures. 2. Bilateral pleural effusions most likely pre-existing, not representing acute hemothorax. Fluid measures simple. IMPRESSION: Negative for acute abdominopelvic injury.
[2022-07-24] MEDS: iohexol 350 mg/mL 500 mL Btl (per mL) IV (14:46)
[2022-07-24] MEDS: sodium chloride 0.9% 1,000 ML 999 ML IV (14:59)
[2022-07-24 15:18] LABS: Basophils # 0.1 10^3/uL (0.0-0.1); Basophils % 0.7 %; Eosinophils # 0.1 10^3/uL (0.0-0.8); Eosinophils % 0.8 %; Hematocrit 35.2 % (37.0-47.0); Lymphocytes # 1.6 10^3/uL (0.8-4.8); Lymphocytes % 13.1 %; Mean Corpuscular HGB Conc 31.3 g/dL (30.0-36.0); Mean Corpuscular Hemoglobin 28.4 pg (28.0-34.0); Mean Corpuscular Volume 90.7 fl (81-99); Mean Platelet Volume 9.3 fL (7.4-10.4); Monocytes # 0.7 10^3/uL (0.2-0.9); Neutrophils # 9.44 10^3/uL (1.8-7.7); Neutrophils % 78.6 %; Nucleated Red Blood Cells % 0 %; Platelet Count 637 10^3/cmm (130-400); Red Blood Count 3.88 10^6/uL (4.1-5.3); Red Cell Distribution Width 16.5 % (12.1-15.1)
[2022-07-24 15:40] LABS: Troponin(5th) Baseline 22 ng/L (0-10)
[2022-07-24 15:48] LABS: Alanine Aminotransferase < 5 U/L (0-33); Alkaline Phosphatase 181 U/L (35-105); Anion Gap 12.8 (5-19); Aspartate Amino Transferase 6 U/L (0-32); Blood Urea Nitrogen 9 mg/dL (8-23); Calcium 8.4 mg/dL (8.5-10.5); Carbon Dioxide 21 mmol/L (22-29); Chloride 98 mmol/L (98-107); Globulin 3.7 g/dL (1.3-4.6); Glomerular Filtration Rate 84.5 mL/min (90-130); Glucose 94 mg/dL (65-115); Lipase 9 U/L (13-60); Magnesium 2.1 mg/dL (1.7-2.3); Osmolality Calculated 264 mOsm/kg (285-295); Potassium 3.8 mmol/L (3.5-5.1); Sodium 128 mmol/L (136-145); Total Bilirubin 0.2 mg/dL (0.15-1.2); Total Protein 6.7 g/dL (6.6-8.7)
[2022-07-24] MEDS: morphine 4 mg/mL SDV 1 mL IVP (17:02)
[2022-07-24] MEDS: ondansetron 2 mg/ML SDV 2 mL 4 MG IVP (17:02)
--- NOTE | 2022-07-24 17:14 | PC.NURSE ---
Pt medication wasted in room sharps. Medication redrawn and administered.
[2022-07-24 17:27] LABS: Add Urine Culture? Yes; Add Urine Microscopic? YES; Bacteria Urine 2+ /hpf; Bilirubin Urine Neg (Negative); Blood Urine Neg (Negative); Glucose Urine UA Norm (Normal); Ketones Urine Negative (Negative); Leukocyte Esterase Urine 1+ (Negative); Nitrate Urine Positive (Negative); Protein Urine Trace (Negative); Specific Gravity, Urine 1.005 (1.005-1.030); Urine Appearance Clear (CLEAR); Urine Color Yellow (Yellow); Urobilinogen Urine Norm (Negative); WBC Urine 25-40 /hpf (0-5); pH Urine 6.5 (5-7)
--- NOTE | 2022-07-24 17:44 | ECG_ITS ---
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 Measurements Intervals [place] Rate: 98 P: 74 DC: 146 QRS: 73 QRSD: 71 T: 71 QT: 346 QTc: 443 Interpretive Statements SINUS RHYTHM POSSIBLE LEFT ATRIAL ENLARGEMENT [-0.1mV P-WAVE IN V1/V2] Compared to ECG 07/24/2022 14:23:30 Sinus tachycardia no longer present Electronically Signed On 07-25-2022 6:21:24 BRUSH CUTTER by Ky Stapleton M.D. [id number]
[2022-07-24 18:01] LABS: Troponin 5 2HR 23.19 ng/L (0-10)
[2022-07-24 18:03] LABS: Troponin 5 2HR Delta 1.19 ABS# (0-10)
[2022-07-24 18:09] LABS: NT Pro B Type Natriuretic Pept 1986 pg/mL (0-125)
[2022-07-24] MEDS: FUROsemide 10 mg/mL SDV 4mL 40 MG IVP (18:39)
--- NOTE | 2022-07-24 19:50 | P.HP_ITS ---
Providers/Chief Complaint Primary Care Provider: PERLA Starr-C Chief Complaint: RIGHT CHEST PAIN S/P FALL History of Present Illness Judy Aguiar is a 62 year old female with history of preserved ejection fraction heart failure, non-oxygen dependent t COPD, active smoker presented with chief complaint of mechanical fall. Patient is stating that she was running after her dog when she lost her balance around the fence and fell on the ground. She was experiencing excruciating pain in her ribs. In the ER she has been diagnosed with rib fracture, CHF exacerbation. She is hyponatremic, BNP is 19,000, she is on 2 L of oxygen related to hypoventilation due to rib fracture. X-ray not showing vascular congestion, abnormal UA however patient is denying symptoms of UTI. She smokes 1 pack/day. Cervical spine CT unremarkable chest abdomen pelvis CT scan unremarkable, pleural effusion positive no active signs of hemothorax as per the radiologist.. Hospitalist service was requested to admit the patient because of high BNP and concern for CHF exacerbation and pain management because of refracture Patient has not experienced any shortness of breath, chest pain, fever, nausea, vomiting she is endorsing loose stool today Review of Systems Const: Reports: chills and body aches Eyes: Denies: change in vision ENMT: Denies: throat pain Card: Reports: chest pain Resp: Denies: dyspnea GI: Denies: abdominal pain : Denies: flank pain or oliguria Musc: Reports: back pain Skin/Breast: Denies: rash Neuro: Denies: headache(s) Psych: Reports: anxiety Endo: Denies: polyuria Nehemias/Lymph: Denies: easy bruising All/Imm: Denies: urticaria Medications/Allergies Home Medications Medication Instructions Recorded Confirmed Last Taken Type acetaminophen 325 mg capsule 325 mg PO QID PRN Pain 07/22/20 07/24/22 Unknown History (Tylenol) carisoprodol 350 mg tablet 350 mg PO QID PRN Spasms 07/22/20 07/24/22 07/21/20 History aspirin 81 mg tablet,delayed 81 mg PO DAILY 02/26/21 07/24/22 07/23/22 History release (Adult Low Dose Aspirin) gabapentin 300 mg capsule 300 mg PO QID 02/26/21 07/24/22 07/24/22 History hydrocodone 10 mg-acetaminophen 2 tab PO Q4H PRN Pain 02/26/21 07/24/22 Unknown History 325 mg tablet bupropion HCl 150 mg tablet,12 hr 150 mg PO Q12H #60 tabs 06/29/22 07/24/22 07/23/22 Rx sustained-release (Wellbutrin SR) buspirone 10 mg tablet 10 mg PO BID #60 tabs 06/29/22 07/24/22 07/24/22 Rx citalopram 40 mg tablet (Celexa) 40 mg PO DAILY #30 tabs 06/29/22 07/24/22 07/24/22 Rx furosemide 20 mg tablet (Lasix) 20 mg PO QAM #30 tabs 06/29/22 07/24/22 07/24/22 Rx sucralfate 1 gram tablet 1 g PO BID #60 tabs 06/29/22 07/24/22 07/24/22 Rx potassium chloride 20 mEq 20 meq PO DAILY #30 tabs 07/12/22 07/24/22 07/24/22 Rx tablet,extended release(part/cryst) Allergies Allergy/AdvReac Type Severity Reaction Status Date / Time cefaclor [From [facility]] Allergy Unknown Unknown Verified 07/24/22 18:44 PFSH Acute PFSH: Medical History Chronic back pain Chronic congestive heart failure with left ventricular diastolic dysfunction COPD (chronic obstructive pulmonary disease) GERD (gastroesophageal reflux disease) Peptic ulcer disease Tobacco dependency Surgical History History of back surgery History of surgery on extremity History of tonsillectomy Hx of appendectomy Hx of cholecystectomy S/P laparoscopy repair of duodenal perforation S/P percutaneous endoscopic gastrostomy (PEG) tube placement removed 03/16/21 Status post Arnoldo fundoplication Family History Father Cancer Pancreatic Mother Cancer Social History Smoking and tobacco status: current every day smoker Second hand smoke exposure: No Smoking risk assessment/counseling performed?: Yes Alcohol intake: current Alcohol intake frequency: holidays/special occasions only Desire information about alcohol rehabilitation?: No Counseling given: No Desire information about substance/drug rehabilitation?: No Counseling given: No Adopted: No Caregiver/support person: Yes Lives independently: Yes Household members: significant other Housing: House Marital status: Single Number of children: 0 service: Yes branch: [employer] Current occupational status: disabled Pets and animals: Yes History of recent travel: No Current gender identity: Female Vitals/I&O/Wt Last Vital Signs Temp 97.9 F 07/24/22 14:12 Pulse 115 H 07/24/22 18:30 Resp 18 07/24/22 18:30 BP 154/89 07/24/22 18:30 Pulse Ox 94 07/24/22 18:30 O2 Del Method 07/24/22 18:30 Weight last 48 hrs Weight 61.689 kg Physical Exam Narrative: Patient is sitting comfortably in her bed Currently on 2 L of oxygen S1, S2 Abdomen soft No signs of edema Clinically she looks euvolemic Awake and alert Nonfocal neuro exam Pleasant and cooperative No sign of cellulitis Appropriate mood and affect No acute distress Currently doing well on room air Data 07/24/22 15:04 07/24/22 15:04 A&P Assessment and plan (1) Pleural effusion, bilateral: (2) Acute on chronic congestive heart failure: (3) Tachycardia: (4) Multiple rib fractures: (5) Tobacco dependency: (6) Chronic back pain: Plan Mechanical fall Rib fractures Hypoxia related to hypoventilation due to rib fracture Pain management with opioids, add bowel regimen No sign of syncope, no active chest pain CHF without acute exacerbation Patient currently clinically looks euvolemic Chronic bilateral pleural effusion I would continue low-dose diuretics for now We will repeat echo as previous echo did not mention EF Seem like she has preserved ejection fraction Hyponatremia Patient looks euvolemic Repeat sodium level Glucose 94 Check TSH Active smoker smokes 1 pack/day UTI? abnormal UA however patient is denying symptoms I would not give her antibiotics for now Full code Cardiac diet DVT prophylaxis on board Anticipating she will be able to go home tomorrow morning with opioids and bowel regimen We will ask resp therapist to wean her oxygen off and give her incentive spirometer Attestations Medical Necessity Statement*: Anticipating discharge within 48 hours Time Spent in Patient Care: 40 Coding Level of Care Code Acute Applications Architect for Seb Uribe Diagnoses Pleural effusion, bilateral J90 Acute on chronic congestive heart failure I50.9 Tachycardia R00.0 Multiple rib fractures S22.49XA Tobacco dependency F17.200 Chronic back pain M54.9; G89.29
--- NOTE | 2022-07-24 20:24 | ECG_ITS ---
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 Measurements Intervals [place] Rate: 103 P: 75 WV: 142 QRS: 68 QRSD: 69 T: 66 QT: 348 QTc: 456 Interpretive Statements SINUS TACHYCARDIA LEFT ATRIAL ENLARGEMENT [-0.15mV P-WAVE IN V1/V2] Compared to ECG 07/24/2022 17:44:46 Sinus rhythm no longer present Electronically Signed On 07-25-2022 6:21:10 [employer]AW HAT WASHER by Ky Stapleton M.D. [id number]
--- NOTE | 2022-07-24 20:49 | PC.NURSE ---
Pt report called to Minal PRASAD.
--- NOTE | 2022-07-24 21:39 | PC.NURSE ---
ADMIT NOTE Pt received to floor via wheelchair from the ER. Is alert and oriented. Fell and c/o pain on right ribcage area. Pain is worsened by moving and deep breathing. O2 in place at 2l per NC. IV PIID intact to left ac. To bathroom on arrival to room. Says she has decreased feeling in her feet from neuropathy. RN at bedside doing admission assessment
[2022-07-24] MEDS: gabapentin 300 mg Capsule PO (21:47)
[2022-07-24] MEDS: enoxaparin 40 mg/0.4 mL Syringe SUBCUT (21:47)
[2022-07-24] MEDS: HYDROcodone-acetaminophen 10-325 mg Tablet 1 TAB PO (21:47)
[2022-07-24 22:10] LABS: Glucose Point of Care 92 mg/dL (70-110)
[2022-07-24 22:23] LABS: D Dimer 1.54 ug/mIFEU (0-0.59)
[2022-07-24 22:31] LABS: Troponin 5 6HR 32.47 ng/L (0-10)
[2022-07-24 22:36] LABS: Troponin 5 6HR Delta 10.47 ng/L (0-12)
[2022-07-24 22:39] LABS: Thyroid Stimulating Hormone 2.48 uIU/mL (0.27-4.20)
[2022-07-24 23:46] LABS: Vitamin B12 700 pg/mL (232-1245)
[2022-07-25] VITALS (8 sets, daily range): BP systolic 102–131; BP diastolic 67–75; PULSE 71–110; RESP 12–91; TEMP 36.4–36.9; O2SAT 86–99
[2022-07-25] MEDS: HYDROcodone-acetaminophen 10-325 mg Tablet 1 TAB PO ×4 (03:49→21:28)
[2022-07-25 04:56] LABS: Basophils # 0.1 10^3/uL (0.0-0.1); Basophils % 0.7 %; Eosinophils # 0.1 10^3/uL (0.0-0.8); Eosinophils % 1.1 %; Lymphocytes # 3.4 10^3/uL (0.8-4.8); Lymphocytes % 28.9 %; Mean Corpuscular HGB Conc 30.6 g/dL (30.0-36.0); Mean Corpuscular Hemoglobin 28.3 pg (28.0-34.0); Mean Corpuscular Volume 92.5 fl (81-99); Mean Platelet Volume 9.5 fL (7.4-10.4); Monocytes % 8.2 %; Neutrophils # 7.15 10^3/uL (1.8-7.7); Neutrophils % 60.3 %; Nucleated Red Blood Cells % 0 %; Platelet Count 643 10^3/cmm (130-400); Red Blood Count 3.89 10^6/uL (4.1-5.3); Red Cell Distribution Width 16.9 % (12.1-15.1); White Blood Count 11.9 10^3/uL (4.0-10.0)
[2022-07-25 05:28] LABS: Blood Urea Nitrogen 10 mg/dL (8-23); C Reactive Protein 53.5 mg/L (0.0-4.9); Calcium 9.1 mg/dL (8.5-10.5); Carbon Dioxide 24 mmol/L (22-29); Chloride 101 mmol/L (98-107); Glomerular Filtration Rate 72.4 mL/min (90-130); Glucose 76 mg/dL (65-115); Magnesium 2.2 mg/dL (1.7-2.3); Osmolality Calculated 280 mOsm/kg (285-295); Sodium 136 mmol/L (136-145)
[2022-07-25] MEDS: FUROsemide 20 mg Tablet PO (05:45)
--- NOTE | 2022-07-25 06:00 | USCV_ITS ---
Judy Aguiar Age: 62 Gender: F : 1960 Exam Date: 07/25/2022 07:54 Ordering Phys: Brooke Winters MD Technologist: Exam [place] [facility] [place]ication: chf BP: 143 / 89 HR: 96 Rhythm: Sinus Technical Quality: Adequate MEASUREMENTS (Male / Female) Normal Values 2D ECHO LV Diastolic Diameter PLAX 2.9 cm 4.2 - 5.9 / 3.9 - 5.3 cm LV Systolic Diameter PLAX 2.5 cm IVS Diastolic Thickness 0.8 cm 0.6 - 1.0 / 0.6 - 0.9 cm IVS Systolic Thickness 1.5 cm LVPW Diastolic Thickness 1.1 cm 0.6 - 1.0 / 0.6 - 0.9 cm LVPW Systolic Thickness 1.3 cm LVOT Diameter 2.0 cm LV Ejection Fraction 2D Teich 23.2 % LV Ejection Fraction MOD 2C 51.1 % LV Ejection Fraction 2C AL 50.9 % LA Diameter 4.0 cm Aorta at Sinotubular Diameter 2.1 cm IVC Diameter 1.6 cm DOPPLER AV Peak Velocity 142.0 cm/s LVOT Peak Velocity 101.0 cm/s AV Area Cont Eq vti 2.3 cm squared AV Area Cont Eq pk 2.3 cm squared MV Area PHT 5.0 cm squared Mitral E to A Ratio 1.0 MV E' Velocity 74.5 cm/s Mitral E to MV E' Ratio 18.2 Mitral E to LV E' Lateral Ratio 30.0 Mitral E to LV E' Septal Ratio 13.1 TR Peak Velocity 167.0 cm/s TR Peak Gradient 11.2 mmHg TV Peak E Velocity 66.0 cm/s Right Atrial Pressure 3.0 mmHg Pulmonary Artery Systolic Pressu 14.2 mmHg FINDINGS Left Ventricle Left ventricle is normal in size. LV systolic function is normal with EF of 50 to 55%. No regional wall motion abnormalities are seen. Grade 1 diastolic dysfunction Right Ventricle Normal in size and function Right Atrium Normal in size Left Atrium Normal in size Mitral Valve Likely has mitral valve prolapse. Mild mitral regurgitation. Aortic Valve Grossly normal. No significant stenosis is seen. Tricuspid Valve Not well visualized Pulmonic Valve Not well visualized Pericardium Grossly normal Aorta Normal in size IVC Not well visualized CONCLUSIONS Technically limited quality echocardiogram because of poor ultrasonic windows LV systolic function is normal with EF of 55-60% Grade 1 diastolic dysfunction Mitral valve prolapse. Mild mitral regurgitation Compared to prior echocardiogram from 07/30/2020, no significant changes are seen. Ky Stapleton MD (Electronically Signed) Final Date: 25 July 2022 20:07 S
[2022-07-25] MEDS: lisinopril 10 mg Tablet PO (09:34)
[2022-07-25] MEDS: amlodipine 5 mg Tablet PO (09:34)
[2022-07-25] MEDS: BuSPIRONE 10 mg Tablet PO ×2 (09:34→17:53)
[2022-07-25] MEDS: sucralfate 1 gm Tablet PO ×2 (09:34→17:53)
[2022-07-25] MEDS: potassium chloride ER 20 mEq Tablet PO (09:34)
[2022-07-25] MEDS: gabapentin 300 mg Capsule PO ×3 (09:34→20:30)
[2022-07-25] MEDS: pneumococcal (23 valent) SDV 0.5 mL IM (10:55)
[2022-07-25 11:28] LABS: Glucose Point of Care 116 mg/dL (70-110)
[2022-07-25] MEDS: ipratropium-albuterol 3 mL Neb INHALATION (11:34)
--- NOTE | 2022-07-25 12:14 | PC.CHAP ---
Pastoral Care Encounter/Spiritual Assessment Type of Contact [] Declined patient centered care specialist visit [] Patient/Family/Request visit [] Outpatient visit [] Follow-up visit [] Physician referral [] Code/Alert [x] Routine visit [] Staff referral [] Actively dying [] Patient sleeping [] Family support [] [] Out of room [] Palliative care [] [] Receiving care in room [] Pre-surgical visit [] Trauma [] Long length of stay [] ICU visit [] Other: Relational/Emotional Strength [x] Patient feels connected with others/family/visitors/staff [] Distress [] Loneliness/isolation [] Abandonment Spirituality of Patient x [] Person of Audrey [] Attends Mormonism of their Audrey [x] Believes in Prayer [] Reads Bible or Holiness materials [] There are Spiritual issues to be addressed Call Person Interventions [x] Prayer x[] Active listening [] Non-anxious presence [x] Spiritual/emotional support [] Crisis/trauma care [] Spiritual counseling [] Bereavement support [] Provided bereavement packet [] Provided Bible/devotional materials [] Provided toy/stuffed animal, coloring book to patient or family member [] Provided Communion [] Anointing/[place] [] Salvation [x] Completed spiritual assessment [] Other: Impact on Illness or Injury [] Angry [] Fearful [] Anxious [] Often cries [] Exhaustion [] Unable to work [] Unable to attend gnosticist [] Unable to walk/stand [] Unable to read [] Unable to drive [] Unable to eat/drink [] Unable to sleep [] Unable to be with family [] Patient intubated [] Other: Summary Time spent with patient 10 min
--- NOTE | 2022-07-25 12:54 | PM.PN ---
Subjective Subjective: This morning. Patient complains of pain in her ribs after her fall. She says she has peripheral neuropathy and therefore does stumble from time to time. Otherwise she has absolutely no other complaints at this time. Denies shortness of breath, abdominal pain, shortness of breath, diarrhea, nausea, vomiting. She says at times when she takes a deep breath her ribs hurt otherwise she is doing okay. She says she has a sister at home who can help her and take care of her and assist her whenever needed. She is not interested in a fpc. She was not dehydrated lightheaded or dizzy before she fell. She says she stumbled because of her neuropathy. Vitals/I&O/Wt Last Vital Signs Temp 98.1 F 07/25/22 12:00 Pulse 110 H 07/25/22 12:00 Resp 17 07/25/22 12:00 BP 121/75 07/25/22 12:00 Pulse Ox 91 07/25/22 12:00 O2 Del Method 07/25/22 11:41 07/24/22 07/25/22 07/25/22 22:59 06:59 14:59 Intake Total 200 / 200 120 / 120 Balance 200 / 200 120 / 120 Weight last 48 hrs Weight 61.689 kg Physical Exam Narrative: Patient is sitting comfortably in her bed Currently on 2 L of oxygen S1, S2 Abdomen soft No signs of edema Clinically she looks euvolemic Awake and alert Nonfocal neuro exam Pleasant and cooperative No sign of cellulitis Appropriate mood and affect No acute distress Currently doing well on room air Does have mild tenderness to palpation around rib fracture sites. Data 07/25/22 04:15 07/25/22 04:15 A&P Assessment and plan (1) Pleural effusion, bilateral: (2) Acute on chronic congestive heart failure: (3) Tachycardia: (4) Multiple rib fractures: (5) Tobacco dependency: (6) Chronic back pain: Plan Mechanical fall Rib fractures Hypoxia related to hypoventilation due to rib fracture Pain management with opioids, add bowel regimen No sign of syncope, no active chest pain CHF without acute exacerbation Patient currently clinically looks euvolemic Chronic bilateral pleural effusion I would continue low-dose diuretics for now We will repeat echo as previous echo did not mention EF Seem like she has preserved ejection fraction Hyponatremia Patient looks euvolemic Repeat sodium level Glucose 94 Check TSH Active smoker smokes 1 pack/day UTI? abnormal UA however patient is denying symptoms I would not give her antibiotics for now Will repeat UA. Patient denies having any symptoms. Peripheral neuropathy, chronic ? Continue gabapentin. Patient states this helps. Full code Cardiac diet DVT prophylaxis on board Anticipating she will be able to go home tomorrow morning with opioids and bowel regimen Will do home O2 evaluation today. Physical therapy assessment I do anticipate once the to the above are done patient may be able to possibly go home. Attestations Medical Necessity Statement*: Possible discharge today. Awaiting physical therapy and home O2 evaluation. Coding Level of Care Code Acute International Flight Attendant for Seb Moored Diagnoses Pleural effusion, bilateral J90 Acute on chronic congestive heart failure I50.9 Tachycardia R00.0 Multiple rib fractures S22.49XA Tobacco dependency F17.200 Chronic back pain M54.9; G89.29
[2022-07-25 17:09] LABS: Glucose Point of Care 143 mg/dL (70-110)
[2022-07-25] MEDS: enoxaparin 40 mg/0.4 mL Syringe SUBCUT (21:28)
[2022-07-25 22:11] LABS: Glucose Point of Care 117 mg/dL (70-110)
[2022-07-26] VITALS: BP 116/69; PULSE 75; RESP 16; TEMP 36.6; O2SAT 97
[2022-07-26 04:00] VITALS: BP 115/68; PULSE 72; RESP 17; TEMP 36.6; O2SAT 99
[2022-07-26] MEDS: FUROsemide 20 mg Tablet PO (05:09)
[2022-07-26 07:45] LABS: Glucose Point of Care 102 mg/dL (70-110)
[2022-07-26 07:53] VITALS: BP 126/67; PULSE 91; RESP 16; TEMP 36.8; O2SAT 97
[2022-07-26 08:10] VITALS: PULSE 78; RESP 16; O2SAT 95
--- NOTE | 2022-07-26 09:37 | PC.NURSE ---
I reportd the pain to the nurse
[2022-07-26] MEDS: HYDROcodone-acetaminophen 10-325 mg Tablet 1 TAB PO (09:50)
[2022-07-26] MEDS: lisinopril 10 mg Tablet PO (09:51)
[2022-07-26] MEDS: sucralfate 1 gm Tablet PO (09:51)
[2022-07-26] MEDS: amlodipine 5 mg Tablet PO (09:51)
[2022-07-26] MEDS: piperacillin-tazobactam 3.375 GM in sodium chloride 0.9% (plus) 50 ML IV (09:51)
[2022-07-26] MEDS: gabapentin 300 mg Capsule PO (09:51)
[2022-07-26] MEDS: BuSPIRONE 10 mg Tablet PO (09:51)
[2022-07-26] MEDS: potassium chloride ER 20 mEq Tablet PO (09:51)
--- NOTE | 2022-07-26 10:43 | PM.DCS ---
Discharge Providers Date of Admission: 07/24/22 20:32 Date of Discharge: July 26, 2022 Attending Provider at Admission: Brooke Winters MD Attending Provider at Discharge: Beata Oconnell MD Primary Care Provider: LORENA Starr Diagnoses at Discharge Discharge Diagnosis (1) Pleural effusion, bilateral: Status: Acute (2) Acute on chronic congestive heart failure: Status: Resolved (3) Tachycardia: Status: Resolved (4) Multiple rib fractures: Status: Acute (5) Tobacco dependency: Status: Chronic (6) Chronic back pain: Status: Chronic Reason for Visit Reason for Visit: RIGHT CHEST PAIN S/P FALL Brief History: as per dr winters Judy Aguiar is a 62 year old female with history of preserved ejection fraction heart failure, non-oxygen dependent t COPD, active smoker presented with chief complaint of mechanical fall.? Patient is stating that she was running after her dog when she lost her balance around the fence and fell on the ground.? She was experiencing excruciating pain in her ribs.? In the ER she has been diagnosed with rib fracture, CHF exacerbation.? She is hyponatremic, BNP is 19,000, she is on 2 L of oxygen related to hypoventilation due to rib fracture.? X-ray not showing vascular congestion, abnormal UA however patient is denying symptoms of UTI.? She smokes 1 pack/day.? Cervical spine CT unremarkable chest abdomen pelvis CT scan unremarkable, pleural effusion positive no active signs of hemothorax as per the radiologist.. Hospitalist service was requested to admit the patient because of high BNP and concern for CHF exacerbation and pain management because of refracture Patient has not experienced any shortness of breath, chest pain, fever, nausea, vomiting she is endorsing loose stool today Hospital Course Hospital Course Patient presented for a mechanical fall after tripping secondary to her peripheral neuropathy. Patient stated that she sometimes does not use her walker. Patient did suffer from rib fractures at admission and had some hypoxia related to hypoventilation due to that. Patient was managed with opioids and placed on oxygen at discharge. She also has a history of CHF but was not in any acute exacerbation. She does have chronic bilateral pleural effusions. There was no change in the effusions. Echo was repeated which also was similar to prior studies. She was slightly hyponatremic but euvolemic. Sodium level was better next day after discharge. She did have a UTI and was placed on 3 days of ciprofloxacin. Patient's sister was present at time of discharge. I went over in detail regarding discharge planning. Sister states that she is there 27/02 with her and can take care of her. Patient was also advised to keep her oxygen on and use a walker to ambulate. She was asked to come back to the hospital if she experience any lightheadedness dizziness, shortness of breath, worsening of existing symptoms or development of new symptoms. Patient demonstrated understanding. Sister also demonstrated understanding. They will be following up with patient's primary care doctor going forward. Home health was set up for the patient. Physical Exam Narrative: Patient is sitting comfortably in her bed Currently on 2 L of oxygen S1, S2 Abdomen soft No signs of edema Clinically she looks euvolemic Awake and alert Nonfocal neuro exam Pleasant and cooperative No sign of cellulitis Appropriate mood and affect No acute distress Currently doing well on room air Does have mild tenderness to palpation around rib fracture sites. Discharge Data Studies Completed and Pending Completed Studies During Hospitalization Category Date Time Status CT cervical spin wo con* [id number] Stat Cat Scan 07/24/22 14:[address] head wo con* [id number] Stat Cat Scan 07/24/22 14:[address] abdomen pelvis [CT angio chest w abd pel w Cat Scan 07/24/22 14:19 Completed con] Stat XR chest 1V portable [id number] Stat Exams 07/24/22 14:17 Completed CV. echo complete* [id number] Routine Ultrasound 07/25/22 06:00 Completed Pending at discharge Category Date Time Status Urine Culture Stat Lab 07/24/22 17:02 Results Radiology Impressions Chest X-Ray 07/24/22 14:17 IMPRESSION: No acute findings. Cervical Spine CT 07/24/22 14:19 IMPRESSION: No acute spine fracture-subluxation. Multilevel disc disease and chronic endplate/facet disease with spondylosis as described above. No significant central canal stenosis related to osseous elements. Chest/Abdomen/Pelvis CT 07/24/22 14:19 IMPRESSION: 1. Bilateral rib fractures. 2. Bilateral pleural effusions most likely pre-existing, not representing acute hemothorax. Fluid measures simple. IMPRESSION: Negative for acute abdominopelvic injury. Head CT 07/24/22 14:19 IMPRESSION: No acute intracranial findings. Laboratory Results WBC 11.9 10^3/uL (4.0-10.0) H 07/25/22 04:15 RBC 3.89 10^6/uL (4.1-5.3) L 07/25/22 04:15 Hgb 11.0 g/dL (11.5-15.3) L 07/25/22 04:15 Hct 36.0 % (37.0-47.0) L 07/25/22 04:15 MCV 92.5 fl (81-99) 07/25/22 04:15 MCH 28.3 pg (28.0-34.0) 07/25/22 04:15 MCHC 30.6 g/dL (30.0-36.0) 07/25/22 04:15 RDW 16.9 % (12.1-15.1) H 07/25/22 04:15 Plt Count 643 10^3/cmm (130-400) H 07/25/22 04:15 MPV 9.5 fL (7.4-10.4) 07/25/22 04:15 Neut % (Auto) 60.3 % 07/25/22 04:15 Lymph % (Auto) 28.9 % 07/25/22 04:15 [place] % (Auto) 8.2 % 07/25/22 04:15 Eos % (Auto) 1.1 % 07/25/22 04:15 Baso % (Auto) 0.7 % 07/25/22 04:15 Neut # (Auto) 7.15 10^3/uL (1.8-7.7) 07/25/22 04:15 Lymph # (Auto) 3.4 10^3/uL (0.8-4.8) 07/25/22 04:15 [place] # (Auto) 1.0 10^3/uL (0.2-0.9) H 07/25/22 04:15 Eos # (Auto) 0.1 10^3/uL (0.0-0.8) 07/25/22 04:15 Baso # (Auto) 0.1 10^3/uL (0.0-0.1) 07/25/22 04:15 Nucleated RBC % (auto) 0 % 07/25/22 04:15 Nucleated RBCs # 0.0 /100WBC 07/25/22 04:15 D-Dimer 1.54 ug/mIFEU (0-0.59) H 07/24/22 21:21 Sodium 136 mmol/L (136-145) 07/25/22 04:15 Potassium 4.0 mmol/L (3.5-5.1) 07/25/22 04:15 Chloride 101 mmol/L (98-107) 07/25/22 04:15 Carbon Dioxide 24 mmol/L (22-29) 07/25/22 04:15 Anion Gap 15.0 (5-19) 07/25/22 04:15 BUN 10 mg/dL (8-23) 07/25/22 04:15 Creatinine 0.8 mg/dL (0.5-0.9) 07/25/22 04:15 GFR Calculation 72.4 mL/min (90-130) L 07/25/22 04:15 Glucose 76 mg/dL (65-115) 07/25/22 04:15 POC Glucose 102 mg/dL (70-110) 07/26/22 07:32 Calculated Osmolality 280 mOsm/kg (285-295) L 07/25/22 04:15 Calcium 9.1 mg/dL (8.5-10.5) 07/25/22 04:15 Phosphorus 4.0 mg/dL (2.5-4.5) 07/25/22 04:15 Magnesium 2.2 mg/dL (1.7-2.3) 07/25/22 04:15 Total Bilirubin 0.2 mg/dL (0.15-1.2) 07/24/22 15:04 AST 6 U/L (0-32) 07/24/22 15:04 ALT < 5 U/L (0-33) 07/24/22 15:04 Alkaline Phosphatase 181 U/L (35-105) H 07/24/22 15:04 Troponin T Baseline 22 ng/L (0-10) H 07/24/22 15:04 Troponin T 120 Minute 23.19 ng/L (0-10) H 07/24/22 17:07 Delta Troponin T 1.19 ABS# (0-10) 07/24/22 17:07 Troponin T Hi Sens 6Hr 32.47 ng/L (0-10) H 07/24/22 21:21 Troponin T Hi Sens 6Hr Delta 10.47 ng/L (0-12) 07/24/22 21:21 C-Reactive Protein 53.5 mg/L (0.0-4.9) H 07/25/22 04:15 NT-Pro-B Natriuret Pep 1986 pg/mL (0-125) H 07/24/22 17:07 Total Protein 6.7 g/dL (6.6-8.7) 07/24/22 15:04 Albumin 3.0 g/dL (3.5-5.2) L 07/24/22 15:04 Globulin 3.7 g/dL (1.3-4.6) 07/24/22 15:04 Lipase 9 U/L (13-60) L 07/24/22 15:04 Vitamin B12 700 pg/mL (232-1245) 07/24/22 21:21 TSH 2.48 uIU/mL (0.27-4.20) 07/24/22 21:21 Urine Color Yellow (Yellow) 07/24/22 17:02 Urine Appearance Clear (CLEAR) 07/24/22 17:02 Urine pH 6.5 (5-7) 07/24/22 17:02 Ur Specific [place] 1.005 (1.005-1.030) 07/24/22 17:02 Urine Protein Trace (Negative) 07/24/22 17:02 Urine Glucose (UA) Norm (Normal) 07/24/22 17:02 Urine Ketones Negative (Negative) 07/24/22 17:02 Urine Blood Neg (Negative) 07/24/22 17:02 Urine Nitrate Positive (Negative) H 07/24/22 17:02 Urine Bilirubin Neg (Negative) 07/24/22 17:02 Urine Urobilinogen Norm mg/dL (Negative) 07/24/22 17:02 Ur Leukocyte Esterase 1+ (Negative) H 07/24/22 17:02 Urine RBC None /hpf (0-2) 07/24/22 17:02 Urine WBC 25-40 /hpf (0-5) H 07/24/22 17:02 Ur Squamous Epith Cells 5-10 /hpf (0-5) H 07/24/22 17:02 Amorphous Sediment Not Reportable 07/24/22 17:02 Urine Bacteria 2+ /hpf (NONE) H 07/24/22 17:02 Vitals Last Vital Signs Temp 98.3 F 07/26/22 07:53 Pulse 78 07/26/22 08:10 Resp 16 07/26/22 08:10 BP 126/67 07/26/22 07:53 Pulse Ox 95 07/26/22 08:10 O2 Del Method 07/26/22 08:10 O2 Flow Rate 2 07/25/22 20:00 Discharge Plan Discharge Patient Disposition: Home Health Service Condition: Stable Prescriptions: New ciprofloxacin HCl 500 mg tablet 500 mg PO BID 3 Days Qty: 6 0RF Continued aspirin [Adult Low Dose Aspirin] 81 mg tablet,delayed release (DR/EC) 81 mg PO DAILY bupropion HCl [Wellbutrin SR] 150 mg tablet sustained-release 12 hr 150 mg PO Q12H Qty: 60 2RF buspirone 10 mg tablet 10 mg PO BID Qty: 60 2RF citalopram [Celexa] 40 mg tablet 40 mg PO DAILY Qty: 30 2RF furosemide [Lasix] 20 mg tablet 20 mg PO QAM Qty: 30 2RF sucralfate 1 gram tablet 1 g PO BID Qty: 60 2RF potassium chloride 20 mEq tablet,ER particles/crystals 20 meq PO DAILY Qty: 30 0RF Rx Instructions: dose increase carisoprodol 350 mg tablet 350 mg PO QID PRN (Reason: Spasms) acetaminophen [Tylenol] 325 mg Capsule 325 mg PO QID PRN (Reason: Pain) Changed gabapentin 300 mg capsule 300 mg PO TID Qty: 15 0RF hydrocodone-acetaminophen 10-325 mg tablet 1 tab PO Q4H PRN (Reason: Pain) Qty: 10 0RF Discharge Orders: Discharge Order (Routine); Ordered 07/26/22 Ordered By: Beata Oconnell Other Ambulatory Orders: DME: Oxygen (Order) Location: None Selected Ordered By: Beata Oconnell Referrals: [facility] – [place] Home Care ([facility]) [Outside] Lexi Montana FNP-C [Primary Care Provider] - 08/11/22 1:40 pm Discharge Diet: Diabetic Discharge Activity: Increase activity as tolerated and Use walker/crutches as instructed Patient Instructions: Ciprofloxacin (By mouth), Opioid Safety Activity Restrictions/Additional Instructions: Please return to ER if you develop any new symptoms or worsening of existing symptoms. Please do not ignore including but not limited to shortness of breath, chest pain, abdominal pain, lightheadedness, dizziness, etc. Please use oxygen as directed. Keep a blood pressure recording sheet and take to your primary care doctor when you go for follow up. Discharge Attestations Time Spent in Discharge Care*: greater than 30 min Status at Discharge: Cognitive status at discharge: cognitively intact, Behavioral status at discharge: cooperative, Quality Metrics Clinical Quality Measures [ No reported AMI, CVA or VTE this stay] Coding Level of Care Code Acute Chg FW DC note Diagnoses Pleural effusion, bilateral J90 Acute on chronic congestive heart failure I50.9 Tachycardia R00.0 Multiple rib fractures S22.49XA Tobacco dependency F17.200 Chronic back pain M54.9; G89.29
[2022-07-26 10:54] VITALS: PULSE 78; RESP 16; O2SAT 95
[2022-07-26 11:12] VITALS: BP 139/83; PULSE 114; RESP 16; TEMP 36.6; O2SAT 95
[2022-07-26 12:03] LABS: Glucose Point of Care 118 mg/dL (70-110)
== END 2022-07-26 13:00 | disposition home health service (06) ==
LOC: ER 19:53 → MEDSURG 20:32
PROVIDERS: Admitting Provider Internal Medicine; Emergency Provider Emergency Medicine; PCP Nurse Practitioner; Visit Provider Internal Medicine
DX: J90 Pleural effusion, not elsewhere classified (principal); I50.9 Heart failure, unspecified; R00.0 Tachycardia, unspecified; S22.49XA Multiple fractures of ribs, unspecified side, initial encounter for closed fracture; W01.0XXA Fall on same level from slipping, tripping and stumbling without subsequent striking against object, initial encounter; M54.9 Dorsalgia, unspecified; G89.29 Other chronic pain; J44.9 Chronic obstructive pulmonary disease, unspecified; Z99.81 Dependence on supplemental oxygen; F17.210 Nicotine dependence, cigarettes, uncomplicated; Z87.11 Personal history of peptic ulcer disease; Z91.81 History of falling; R07.9 Chest pain, unspecified
CPT/HCPCS: 36415; 36416; 70450; 71045; 71275; 72125; 74177; 80048; 80053; 81001; 82607; 82962; 83690; 83735; 83880; 84100; 84443; 84484; 85025; 85378; 86140; 87077; 87086; 87186; 90471; 90732; 93005; 93306; 94640; 94760; 96365; 96372; 96375; 97110; 97116; 97162; 99285; G0378; J1650; J1940; J2270; J2405; J2543; J7030; Q9967

== ENCOUNTER 2022-08-09 15:31 | Emergency (ER) | payer MEDICARE, SELFPAY ==
--- NOTE | 2022-08-09 15:47 | ED_ITS ---
HPI - Fall General: Chief Complaint: Fall Stated Complaint: Back Pain Time Seen by Provider: 08/09/22 15:35 Source: patient and EMS Mode of arrival: EMS Limitations: no limitations History of Present Illness: Patient is a 62-year-old female presents to ED today with a complaint of back pain following a fall. Patient tells me fall occurred yesterday in her kitchen. She states she normally ambulates with the help of a walker but had let go of her walker to walk across the kitchen to get something out of the cupboard when she accidentally fell backwards and states she struck her back on the edge of the countertop. No fall to ground following that. She denies striking her head or LOC. She complains of pain to mainly her left posterior ribs but states she does have some discomfort across her back. She does not complain of shortness of breath or difficulty breathing. Patient had a different fall approximately 3 weeks in which she sustained 3 acute/subacute left/right rib fractures diagnosed on CT chest/abdomen/pelvis imaging. Patient is not having any pain in her extremities. No abdominal pain. MD complaint: fall Onset (ago): day(s) (yesterday) Fall from: standing Fall witnessed: no Place fall occurred: home Loss of consciousness: None Prolonged down time: no Symptoms prior to fall: none Context: tripped/slipped Location of injury: back Associated symptoms-after fall: Reports no associated symptoms; Denies abdominal pain, chest pain, headache(s), lightheadedness or neck pain Review of Systems Const: Denies: fever(s), chills, body aches, fatigue or malaise Card: Denies: chest pain, palpitations, irregular heart rhythm, lightheadedness, syncope or pre-syncope Resp: Denies: dyspnea, productive cough, non-productive cough, wheezing, hem optysis or chest congestion GI: Denies: abdominal pain Musc: Reports: back pain; Denies: neck pain, extremity pain, extremity swelling, joint pain or joint swelling Skin/Breast: Denies: rash Neuro: Denies: headache(s), numbness in extremities, weakness in extremities or sensory changes PFS ED PFSH: Medical History Chronic back pain Chronic congestive heart failure with left ventricular diastolic dysfunction COPD (chronic obstructive pulmonary disease) GERD (gastroesophageal reflux disease) Peptic ulcer disease Tobacco dependency Surgical History History of back surgery History of surgery on extremity History of tonsillectomy Hx of appendectomy Hx of cholecystectomy S/P laparoscopy repair of duodenal perforation S/P percutaneous endoscopic gastrostomy (PEG) tube placement removed 03/16/21 Status post Arnoldo fundoplication Family History Father Cancer Pancreatic Mother Cancer Social History Smoking and tobacco status: current every day smoker Second hand smoke exposure: No Smoking risk assessment/counseling performed?: Yes Alcohol intake: current Alcohol intake frequency: holidays/special occasions only Desire information about alcohol rehabilitation?: No Counseling given: No Desire information about substance/drug rehabilitation?: No Counseling given: No Adopted: No Caregiver/support person: Yes Lives independently: Yes Household members: significant other Housing: House Marital status: Single Number of children: 0 service: Yes branch: [employer] Current occupational status: disabled Pets and animals: Yes History of recent travel: No Current gender identity: Female Physical Exam Const: COMMON NORMALS: no acute distress, average body habitus, patient oriented x3, no limitations, alert and well nourished GENERAL APPEARANCE: cooperative ORIENTATION/CONSCIOUSNESS: Yes awake, Yes oriented to person, Yes oriented to place and Yes oriented to time HENMT: COMMON NORMALS: normocephalic and atraumatic HEAD & SCALP: normal to inspection, normocephalic and atraumatic Neck/C-Spine: GENERAL: Yes normal visual inspection CERVICAL SPINE: Yes cervical ROM normal, No pain with cervical ROM and No Cervical spine tenderness Chest: COMMONS NORMALS: normal inspection of the chest and normal palpation of entire chest wall OTHER: I don't feel any abnormalities with palpation of posterior chest wall/ribs/back but patient does complain of some mild pain to L posterior ribs Resp: COMMON NORMALS: normal respiratory effort and clear to auscultation bilaterally AUSCULTATION: clear to auscultation bilaterally Cardio: COMMON NORMALS: regular rate and regular rhythm RATE: regular rate RHYTHM: regular rhythm GI: COMMON NORMALS: Normal to inspection, nondistended, normoactive bowel sounds present, Soft to palpation, non-tender, No hepatosplenomegaly present and no masses INSPECTION: Yes normal to inspection PALPATION: Yes Soft to palpation and Yes No hepatosplenomegaly present : COMMON NORMALS: Yes no CVA tenderness BLADDER/KIDNEY EXAM: Yes no CVA tenderness Back/Pelvis: COMMON NORMALS: no CVA tenderness THORACIC SPINE/UPPER BACK: Yes thoracic ROM normal, Yes thoracic spinal tenderness (mid T spine), Yes paraspinal muscle tenderness and No paraspinal muscle spasm LUMBAR SPINE/LOWER BACK: No lumbar spinal tenderness and No paraspinal muscle tenderness PELVIS: Yes buttocks normal SACROILIAC JOINTS: Yes SI joints normal SACRUM: no tenderness COCCYX: no tenderness Extremity: COMMON NORMALS: normal to inspection and full ROM GENERAL: Yes normal exam except as noted Neuro: BRIAN COMA SCALE: document GCS findings [place] coma scale eye opening: Spontaneous [place] coma scale verbal response: Orientated [place] coma scale motor response: Obey commands Brian coma scale total score: 15 COMMON NORMALS: patient oriented x3, moves all extremities, no focal motor deficits and no sensory deficits noted SENSORIUM/ORIENTATION: Yes alert, Yes oriented to person, Yes oriented to place and Yes oriented to time Skin: TRAUMA: no lacerations or abrasions Course Vital Signs: Vital signs: Vital Signs Pulse Rate 115 H 08/09/22 15:51 Respiratory Rate 16 08/09/22 15:51 Blood Pressure 121/81 08/09/22 15:51 Pulse Oximetry 94 08/09/22 15:51 Oxygen Delivery Me thod 08/09/22 15:51 Oxygen Flow Rate 2 08/09/22 15:51 MDM - Fall Medical Decision Making Patient with T8 compression fx. No new rib fxs noted. She is under pain management and states she takes hydrocodone daily for pain. She can continue this. She is requesting something for nausea. Will have case management have her follow-up with orthopedic/spine. Lab Data Radiology Impressions Ribs w/Chest X-Ray 08/09/22 15:50 IMPRESSION: 1. No evidence of rib fracture. 2. Moderate to severe compression deformity of T8 again noted, new from study dated 07/24/2022. Thoracic Spine X-Ray 08/09/22 15:50 IMPRESSION: There is a moderate to severe compression deformity of T8, which is new from recent comparison study dated 07/24/2022. Discharge Plan Discharge Patient Disposition: Home Clinical Impression: Fall Qualifiers: Encounter type: initial encounter Qualified Code(s): W19.XXXA - Unspecified fall, initial encounter Closed compression fracture of thoracic vertebra Qualifiers: Encounter type: initial encounter Qualified Code(s): S22.000A - Wedge compression fracture of unspecified thoracic vertebra, initial encounter for closed fracture Condition: Stable Prescriptions: New ondansetron 4 mg tablet,disintegrating 4 mg PO Q8H PRN (Reason: nausea and vomiting) Qty: 14 0RF No Action aspirin [Adult Low Dose Aspirin] 81 mg tablet,delayed release (DR/EC) 81 mg PO DAILY bupropion HCl [Wellbutrin SR] 150 mg tablet sustained-release 12 hr 150 mg PO Q12H Qty: 60 2RF buspirone 10 mg tablet 10 mg PO BID Qty: 60 2RF citalopram [Celexa] 40 mg tablet 40 mg PO DAILY Qty: 30 2RF furosemide [Lasix] 20 mg tablet 20 mg PO QAM Qty: 30 2RF sucralfate 1 gram tablet 1 g PO BID Qty: 60 2RF potassium chloride 20 mEq tablet,ER particles/crystals 20 meq PO DAILY Qty: 30 0RF Rx Instructions: dose increase carisoprodol 350 mg tablet 350 mg PO QID PRN (Reason: Spasms) acetaminophen [Tylenol] 325 mg Capsule 325 mg PO QID PRN (Reason: Pain) gabapentin 300 mg capsule 300 mg PO TID Qty: 15 0RF hydrocodone-acetaminophen 10-325 mg tablet 1 tab PO Q4H PRN (Reason: Pain) Qty: 10 0RF Discharge Orders: Discharge ED (Routine); Ordered 08/09/22 Ordered By: Shelly Devi Referrals: Lexi Montana, [facility] [Primary Care Provider] - Patient Instructions: Opioid Safety, Pain Management Activity Restrictions/Additional Instructions: As we discussed you may take your normal pain medications as directed. I have given you prescription for anti nausea medications as requested. You need to follow-up with your pain management provider and/or Dr. Ward who is our orthopedic behavioral health specialist. I have placed your information with case management so they should contact you shortly to help set you up with this appointment. You need to return to the emergency department for severe chest pain, shortness of breath, difficulty breathing, fevers, uncontrollable back or rib pain, or any other concerns you may have. I hope you begin to feel better soon. Coding Level of Care Code ED Manager [employer] for [facility] Fwd Exam Comprehensive
--- NOTE | 2022-08-09 15:50 | XRR_ITS ---
PROCEDURE INFORMATION: Exam: XR Thoracic Spine Exam date and time: 08/09/2022 4:06 PM Age: 62 years old Clinical indication: Injury or trauma; Fall; Blunt trauma (contusions or hematomas) TECHNIQUE: Imaging protocol: Radiologic exam of the thoracic spine. Views: 3 views. COMPARISON: CT thoracic spin wo con* [id number] 06/07/2016 10:08 AM, CTA chest 07/24/2022 FINDINGS: Bones/joints: There is a moderate to severe compression deformity of T8. No spinal malalignment. Soft tissues: Unremarkable. XR/XR thoracic spine 3V* [id number] IMPRESSION: There is a moderate to severe compression deformity of T8, which is new from recent comparison study dated 07/24/2022.
--- NOTE | 2022-08-09 15:50 | XRR_ITS ---
PROCEDURE INFORMATION: Exam: XR Ribs with PA Chest Exam date and time: 08/09/2022 4:06 PM Age: 62 years old Clinical indication: Injury or trauma; Fall; Rib area, bilateral; Blunt trauma TECHNIQUE: Imaging protocol: Radiologic exam of the bilateral ribs with PA chest. Views: 4 views COMPARISON: CR (CHEST, ) 07/24/2022 2:36 PM, CTA chest 07/24/2022 FINDINGS: Lungs: Bibasilar scarring. No consolidation. Pleural spaces: No pleural effusion. No pneumothorax. Heart/Mediastinum: No cardiomegaly. Bones/joints: No evidence of rib fracture. Moderate to severe compression deformity of T8 again noted. XR/XR ribs BI mn 4V w CXR1V [id number] IMPRESSION: 1. No evidence of rib fracture. 2. Moderate to severe compression deformity of T8 again noted, new from study dated 07/24/2022.
[2022-08-09 15:51] VITALS: BP 121/81; PULSE 115; RESP 16; O2SAT 94
[2022-08-09] MEDS: HYDROcodone-acetaminophen 10-325 mg Tablet 1 TAB PO (17:35)
[2022-08-09 17:48] VITALS: BP 127/83; PULSE 98; RESP 15; TEMP 36.9; O2SAT 94
--- NOTE | 2022-08-10 10:26 | DCPLANNER ---
Addendum entered by Graciela Shearer 08/17/22 12:26: Patient had a follow up appointment scheduled with ortho - patient did attend appointment. Addendum entered by Graciela Shearer 08/11/22 10:29: Patient has a follow up appointment scheduled for Tuesday, August 16, 2022 at 8:[address] Ward at ortho. engineering manager gave patient the appointment information. Original Note: engineering manager had message to schedule a follow up appointment for patient with ortho. engineering manager sent patients information to the front office staff at ortho. Patients information will be printed and reviewed. Clinic will call patient with appointment information.
== END 2022-08-09 17:40 | disposition home or self-care (01) ==
PROVIDERS: Emergency Provider Physician Assistant; PCP Nurse Practitioner
DX: S22.060A Wedge compression fracture of T7-T8 vertebra, initial encounter for closed fracture (principal); Z79.82 Long term (current) use of aspirin; J44.9 Chronic obstructive pulmonary disease, unspecified; F17.210 Nicotine dependence, cigarettes, uncomplicated; W19.XXXA Unspecified fall, initial encounter
CPT/HCPCS: 71111; 72072; 99283

== ENCOUNTER 2022-08-11 07:20 | Emergency (ER) | payer MEDICARE, SELFPAY ==
[2022-08-11 07:22] VITALS: BP 134/87; PULSE 125; RESP 18; TEMP 36.8; O2SAT 92; BMI 21.9
--- NOTE | 2022-08-11 07:32 | ED_ITS ---
HPI - Back Pain/Injury General: Chief Complaint: Back Pain/Injury Stated Complaint: Back Pain Time Seen by Provider: 08/11/22 07:21 Source: patient Mode of arrival: EMS History of Present Illness: 62-year-old female presents emergency room with complaints of severe back pain. She was seen 2 days ago here in the emergency room was found to T8 compression fracture with no compromise of the canal. She has had a difficult time sleeping she is prescribed hydrocodone 05/09/2025 that she gets at the pain clinic she had not made contact with them about this new injury. MD elicited complaint: back pain Pertinent past history: prior back pain and recent trauma Onset (ago): day(s) Timing: constant Location: thoracic spine Radiation: none Exacerbating factors: movement Relieving factors: none Associated symptoms: Reports difficulty walking; Deny abdominal pain, arthralgias, chills, change in bowel habits, dysuria, fatigue, fecal incontinence, fever(s), hematuria, myalgias, nausea, numbness, syncope, tingling/numbness/burning, urinary frequency, urinary urgency, vomiting or weakness Review of Systems Const: Denies: fever(s), chills or fatigue ENMT: Denies: throat pain, ear or mastoid pain, nasal discharge or nasal congestion Card: Denies: chest pain, palpitations, irregular heart rhythm or syncope Resp: Denies: dyspnea, productive cough or non-productive cough GI: Denies: abdominal pain, nausea, vomiting, fecal incontinence or change in bowel habits : Denies: dysuria, urinary frequency, urinary urgency or hematuria Skin/Breast: Denies: rash or pruritus Neuro: Reports: difficulty walking PFS ED PFSH: Medical History Chronic back pain Chronic congestive heart failure with left ventricular diastolic dysfunction COPD (chronic obstructive pulmonary disease) GERD (gastroesophageal reflux disease) Peptic ulcer disease Tobacco dependency Surgical History History of back surgery History of surgery on extremity History of tonsillectomy Hx of appendectomy Hx of cholecystectomy S/P laparoscopy repair of duodenal perforation S/P percutaneous endoscopic gastrostomy (PEG) tube placement removed 03/16/21 Status post Arnoldo fundoplication Family History Father Cancer Pancreatic Mother Cancer Social History Smoking and tobacco status: current every day smoker Second hand smoke exposure: No Smoking risk assessment/counseling performed?: Yes Alcohol intake: current Alcohol intake frequency: holidays/special occasions only Desire information about alcohol rehabilitation?: No Counseling given: No Desire information about substance/drug rehabilitation?: No Counseling given: No Adopted: No Caregiver/support person: Yes Lives independently: Yes Household members: significant other Housing: House Marital status: Single Number of children: 0 service: Yes branch: [employer] Current occupational status: disabled Pets and animals: Yes History of recent travel: No Current gender identity: Female Physical Exam Const: GENERAL APPEARANCE: cooperative ORIENTATION/CONSCIOUSNESS: Yes awake, Yes oriented to person, Yes oriented to place and Yes oriented to time HENMT: COMMON NORMALS: normocephalic and atraumatic HEAD & SCALP: normocephalic and atraumatic Resp: COMMON NORMALS: normal respiratory effort, No retractions, No use of accessory muscles and clear to auscultation bilaterally AUSCULTATION: clear to auscultation bilaterally Cardio: COMMON NORMALS: regular rate, regular rhythm and No murmurs present (Cardio) RATE: regular rate RHYTHM: regular rhythm GI: COMMON NORMALS: Soft to palpation and No hepatosplenomegaly present AUSCULTATION: Yes normoactive bowel sounds PALPATION: Yes Soft to palpation, No Tenderness to palpation present (GI), No Guarding due to palpation present (GI) and Yes No hepatosplenomegaly present Extremity: COMMON NORMALS: normal to inspection, capillary refill normal, no clubbing, cyanosis or edema, no calf tenderness and no pedal edema Neuro: SENSORIUM/ORIENTATION: Yes oriented to person, Yes oriented to place and Yes oriented to time Skin: COMMON NORMALS: no rashes or lesions noted GENERAL SKIN EXAM: no rashes or lesions noted Course Vital Signs: Vital signs: Vital Signs Temperature 98.3 F 08/11/22 07:22 Pulse Rate 111 H 08/11/22 08:55 Respiratory Rate 16 08/11/22 08:55 Blood Pressure 128/88 08/11/22 08:55 Pulse Oximetry 92 08/11/22 08:55 Oxygen Delivery Me thod 08/11/22 07:22 MDM - Back Pain/Injury Medical Decision Making Thoracic compression fracture we will get her fitted for a T SLO brace here in the emergency room encouraged her to follow-up with pain clinic they can adjust her pain medications as needed to assist with this. We will also set her up to see the spine surgery for evaluation of possible kyphoplasty Medical Records I reviewed the patient's medical records. Labs I reviewed the patient's lab results. Discharge Plan Discharge Patient Disposition: Home Clinical Impression: Closed compression fracture of thoracic vertebra Condition: Stable Prescriptions: No Action aspirin [Adult Low Dose Aspirin] 81 mg tablet,delayed release (DR/EC) 81 mg PO DAILY bupropion HCl [Wellbutrin SR] 150 mg tablet sustained-release 12 hr 150 mg PO Q12H Qty: 60 2RF buspirone 10 mg tablet 10 mg PO BID Qty: 60 2RF citalopram [Celexa] 40 mg tablet 40 mg PO DAILY Qty: 30 2RF furosemide [Lasix] 20 mg tablet 20 mg PO QAM Qty: 30 2RF sucralfate 1 gram tablet 1 g PO BID Qty: 60 2RF potassium chloride 20 mEq tablet,ER particles/crystals 20 meq PO DAILY Qty: 30 0RF Rx Instructions: dose increase carisoprodol 350 mg tablet 350 mg PO QID PRN (Reason: Spasms) acetaminophen [Tylenol] 325 mg Capsule 325 mg PO QID PRN (Reason: Pain) gabapentin 300 mg capsule 300 mg PO TID Qty: 15 0RF hydrocodone-acetaminophen 10-325 mg tablet 1 tab PO Q4H PRN (Reason: Pain) Qty: 10 0RF ondansetron 4 mg tablet,disintegrating 4 mg PO Q8H PRN (Reason: nausea and vomiting) Qty: 14 0RF Discharge Orders: Discharge ED (Routine); Ordered 08/11/22 Ordered By: Dale Marinelli Referrals: Mat Ward DO [Physician] - 08/16/22 8:15 am Lexi Montana, [employer] [Primary Care Provider] - Patient Instructions: Opioid Safety, Pain Management Activity Restrictions/Additional Instructions: You were seen today for compression fracture that was diagnosed 2 days ago. Since you are at the pain clinic you should contact them for any escalation of your narcotic pain medication needs. You were given morphine in the emergency room as well as fitted for a TSLO brace. You should continue to wear the brace except when in bed. 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
[2022-08-11 07:56] VITALS: BP 166/113; PULSE 94; O2SAT 99
[2022-08-11 08:06] VITALS: RESP 16; O2SAT 92
[2022-08-11] MEDS: morphine 4 mg/mL SDV 1 mL IVP (08:06)
[2022-08-11] MEDS: ondansetron 2 mg/ML SDV 2 mL 4 MG IVP (08:07)
--- NOTE | 2022-08-11 08:18 | PC.NURSE ---
pt resting in bed, updated pt on plan of care. pt denies any needs at this time.
--- NOTE | 2022-08-11 08:37 | PC.NURSE ---
PHYSICAL THERAPY IN ROOM WITH PT.
[2022-08-11 08:55] VITALS: BP 128/88; PULSE 111; RESP 16; O2SAT 92
[2022-08-11] MEDS: morphine 4 mg/mL SDV 1 mL 2 MG IVP (09:22)
== END 2022-08-11 11:00 | disposition home or self-care (01) ==
PROVIDERS: Emergency Provider Family Medicine; PCP Nurse Practitioner
DX: S22.060A Wedge compression fracture of T7-T8 vertebra, initial encounter for closed fracture (principal); Z79.82 Long term (current) use of aspirin; F17.210 Nicotine dependence, cigarettes, uncomplicated; J44.9 Chronic obstructive pulmonary disease, unspecified; I50.9 Heart failure, unspecified; X58.XXXA Exposure to other specified factors, initial encounter
CPT/HCPCS: 96374; 96375; 96376; 97760; 99284; J2270; J2405; L0456

== ENCOUNTER → 2022-08-16 08:12 | Outpatient (BNVA) | payer MEDICARE, SELFPAY | PROVIDERS: PCP Nurse Practitioner; Referring Provider Physician Assistant; Visit Provider Orthopaedic Surgery | DX: S22.060A Wedge compression fracture of T7-T8 vertebra, initial encounter for closed fracture (principal); W19.XXXA Unspecified fall, initial encounter | CPT/HCPCS: 99203 ==

== ENCOUNTER → 2022-08-17 13:16 | Outpatient (BNVA) | payer MEDICARE, SELFPAY | PROVIDERS: PCP Nurse Practitioner; Visit Provider Internal Medicine Cardiovascular Disease | DX: R00.0 Tachycardia, unspecified (principal); I50.32 Chronic diastolic (congestive) heart failure; F17.210 Nicotine dependence, cigarettes, uncomplicated | CPT/HCPCS: 93005; 99204; Q3014 ==

== ENCOUNTER → 2023-01-16 11:26 | Outpatient (BNVA) | payer MEDICARE, SELFPAY | PROVIDERS: PCP Nurse Practitioner; Visit Provider Nurse Practitioner | DX: F41.8 Other specified anxiety disorders (principal); I50.32 Chronic diastolic (congestive) heart failure; K27.9 Peptic ulcer, site unspecified, unspecified as acute or chronic, without hemorrhage or perforation | CPT/HCPCS: 80053; 80061; 84443 ==

== ENCOUNTER → 2023-05-22 14:13 | Outpatient (BNVA) | payer MEDICARE, SELFPAY | PROVIDERS: PCP Nurse Practitioner; Visit Provider Nurse Practitioner | DX: R00.0 Tachycardia, unspecified (principal); F41.8 Other specified anxiety disorders; I50.32 Chronic diastolic (congestive) heart failure; K27.9 Peptic ulcer, site unspecified, unspecified as acute or chronic, without hemorrhage or perforation; Z23 Encounter for immunization | CPT/HCPCS: 80053 ==

== ENCOUNTER 2023-10-04 14:24 | Outpatient (CLI) | payer MEDICARE, SELFPAY ==
--- NOTE | 2023-10-04 14:34 | XR_ITS ---
WS: [id number] Exam: XR shoulder RT min 2V* [id number] Date/Time of Exam: 10/04/2023 2:44 PM Reason For Exam: PAIN IN R SHOULDER There is a comminuted fracture at the junction of the middle and distal thirds of the RIGHT clavicle. Alignment is satisfactory for healing. No other fractures of the shoulder are noted. Normal soft tis sues. IMPRESSION: 1. RIGHT clavicle fracture in satisfactory position for healing. No other fractures of the RIGHT shou lder.
--- NOTE | 2023-10-04 14:34 | XR_ITS ---
WS: [id number] Exam: [place] [id number] Date/Time of Exam: 10/04/2023 2:44 PM Reason For Exam: PAIN IN R SHOULDER There is a comminuted fracture at the junction of the middle and distal thirds of the RIGHT clavicle. Alignment appears to be satisfactory for healing. No other fractures are noted. The AC joint appears to be intact. IMPRESSION: 1. Comminuted fracture at the junction of the middle and distal thirds of the RIGHT clavicle. Alignme nt appears adequate for healing.
== END 2023-10-04 14:25 | disposition home or self-care (01) ==
LOC: RAD 14:28
PROVIDERS: PCP Nurse Practitioner; Visit Provider Anesthesiology Pain Medicine
DX: M25.511 Pain in right shoulder (principal); S42.031A Displaced fracture of lateral end of right clavicle, initial encounter for closed fracture; X58.XXXA Exposure to other specified factors, initial encounter; Y93.9 Activity, unspecified; Y92.9 Unspecified place or not applicable; Y99.9 Unspecified external cause status
CPT/HCPCS: 73000; 73030

== ENCOUNTER → 2023-11-24 11:11 | Outpatient (BNVA) | payer MEDICARE, SELFPAY | PROVIDERS: PCP Nurse Practitioner; Visit Provider Nurse Practitioner | DX: R00.0 Tachycardia, unspecified (principal); Z13.6 Encounter for screening for cardiovascular disorders | CPT/HCPCS: 80053; 80061 ==

== ENCOUNTER → 2024-09-03 13:13 | Outpatient (BNVA) | payer MEDICARE, SELFPAY | PROVIDERS: PCP Nurse Practitioner; Visit Provider Nurse Practitioner | DX: E55.9 Vitamin D deficiency, unspecified (principal); R00.0 Tachycardia, unspecified; F41.8 Other specified anxiety disorders; Z13.6 Encounter for screening for cardiovascular disorders | CPT/HCPCS: 80053; 80061; 82306; 84443; 85025 ==

== ENCOUNTER → 2024-12-09 15:55 | Outpatient (BNVA) | payer MEDICARE, SELFPAY | PROVIDERS: PCP Nurse Practitioner; Visit Provider Nurse Practitioner | DX: R00.0 Tachycardia, unspecified (principal); F41.8 Other specified anxiety disorders; R73.9 Hyperglycemia, unspecified; Z13.6 Encounter for screening for cardiovascular disorders | CPT/HCPCS: 80053; 80061; 83036; 84443; 85025 ==

== ENCOUNTER → 2025-03-03 15:54 | Outpatient (BNVA) | payer MEDICARE, SELFPAY | PROVIDERS: PCP Nurse Practitioner; Visit Provider Nurse Practitioner | DX: E78.2 Mixed hyperlipidemia (principal) | CPT/HCPCS: 80053; 80061 ==

== ENCOUNTER → 2025-05-26 15:56 | Outpatient (BNVA) | payer MEDICARE, SELFPAY | PROVIDERS: PCP Nurse Practitioner; Visit Provider Nurse Practitioner | DX: E78.2 Mixed hyperlipidemia (principal) | CPT/HCPCS: 80048 ==